=== PATIENT | female | born 1930 | race Caucasian/White ===

== ENCOUNTER → 2016-08-30 | Outpatient (CLI) | payer OTHER ==
[~2016-08-30] MED LIST: AMOX1TAB44 PO; ASPEC81; FLUO20CA35 PO; FLUT1INH INH; FLUT1INH5 INH; FRS/40 PO; GUAISYP4 PO; IPRASOL4 INH; MOME6000 NAE; NSNN50 NAE; NYSCR30 EXT; OMEP20TA PO; POLY335019 PO; POTA10TA PO; PRED10TA PO; PRLSR20 PO; RBTDACL PO; RST15 PO; UMEC1AER INH
--- NOTE | 2016-08-30 11:43 | DIAGNOSTIC IMAGING REPORT ---
CT SCAN OF THE BRAIN WITHOUT IV CONTRAST CLINICAL HISTORY: Headache. COMPARISON STUDY: CT of the brain dated 06/01/2007. TECHNIQUE: Unenhanced axial CT scan of the brain is performed from the vertex to the skull base. CT DOSE: 690.05 mGycm FINDINGS: Brain parenchyma: There are age-related involutional changes noting mild subcortical and periventricular microangiopathic change. There is no hemorrhage, mass effect, or evidence of acute territorial ischemia by CT criteria. Escobedo-white matter is preserved. No extra-axial fluid collection is seen. Ventricles, sulci, cisterns: Prominent secondary to involutional change. Intracranial vasculature: There is atherosclerotic calcification of the cavernous carotid arteries. Calvarium: Unremarkable. Sinuses and mastoids: The visualized paranasal sinuses are clear. The mastoid air cells are well pneumatized. Orbits: The bony orbits are grossly intact. There are bilateral ocular lens implants. IMPRESSION: There is no hemorrhage, mass effect, or evidence of acute territorial ischemia by CT criteria. Electronically signed by: Mayco Esparza M.D. 08/30/2016 11:42 AM Dictated Date/Time: 08/30/2016 11:37 AM
== END | disposition home or self-care (01) ==
LOC: C.CTS 11:14
PROVIDERS: ATTEND Family Medicine
DX: R51 Headache (principal)

== ENCOUNTER → 2016-09-27 | Outpatient (CLI) | payer OTHER ==
--- NOTE | 2016-09-27 08:53 | DIAGNOSTIC IMAGING REPORT ---
KUB CLINICAL HISTORY: Lower abdominal pain. COMPARISON STUDY: 12/03/2014 FINDINGS: There is scattered stool throughout the colon. There is no pathologic bowel dilatation. There are postsurgical changes present within the lower lumbar spine. There are multilevel degenerative changes present. There are several surgical clips present within the pelvis. No urinary tract calculi are visualized on conventional radiographic imaging. IMPRESSION: No evidence of pathologic bowel dilatation. Electronically signed by: Tulio Oreilly M.D. 09/27/2016 8:51 AM Dictated Date/Time: 09/27/2016 8:51 AM
== END | disposition home or self-care (01) ==
LOC: C.RAD 08:27
PROVIDERS: ATTEND Student in an Organized Health Care Education/Training Program
DX: R10.30 Lower abdominal pain, unspecified (principal)

== ENCOUNTER → 2016-10-18 | Outpatient (CLI) | payer OTHER ==
--- NOTE | 2016-10-18 10:26 | DIAGNOSTIC IMAGING REPORT ---
CHEST 2 VIEWS ROUTINE CLINICAL HISTORY: RIGHT RIB PAIN,COUGH COMPARISON STUDY: 09/11/2015 FINDINGS: The heart is normal in size. There is mild elevation/eventration right hemidiaphragm similar to the prior study. There are right infrahilar atelectatic changes. There is no focal pulmonary consolidation. There is no failure. There are no pleural effusions. There is no pneumothorax. No rib fractures are visualized.[ IMPRESSION: Stable elevation/eventration of the right hemidiaphragm. No acute findings. Electronically signed by: Tulio Oreilly M.D. 10/18/2016 10:24 AM Dictated Date/Time: 10/18/2016 10:24 AM
--- NOTE | 2016-10-18 10:30 | DIAGNOSTIC IMAGING REPORT ---
RIBS UNILATERAL MIN 2 VIEWS CLINICAL HISTORY: RIGHT RIB Pain, cough cough. Dyspnea. COMPARISON STUDY: None FINDINGS: Normal study. Negative PA chest. IMPRESSION: Normal study Electronically signed by: Gabriel Hodges M.D. 10/18/2016 10:28 AM Dictated Date/Time: 10/18/2016 10:26 AM
== END | disposition home or self-care (01) ==
LOC: C.RADBBURG 00:39
PROVIDERS: ATTEND Physician Assistant
DX: R05 Cough (principal)

== ENCOUNTER 2016-12-26 10:01 | Observation (INO) | payer OTHER ==
[~2016-12-26] VITALS: Ht 152.4 cm; Wt 71.4 kg
[~2016-12-26 10:01] MED LIST changes: -ASPEC81; -GUAISYP4 PO; -MOME6000 NAE; -OMEP20TA PO
[2016-12-26] MEDS ORDERED: SODIUM CHLORIDE 0.9% 500ML 500 ML IV STA (10:41)
[2016-12-26] MEDS ORDERED: ASPIRIN 81 MG CHEW PO STA (10:41)
--- NOTE | 2016-12-26 10:54 | DIAGNOSTIC IMAGING REPORT ---
CHEST ONE VIEW PORTABLE CLINICAL HISTORY: Chest Pain dyspnea COMPARISON STUDY: 10/18/2016 FINDINGS: Chronic elevation right hemidiaphragm. Lungs are clear. No evidence of cardiac enlargement. IMPRESSION: No acute process. Electronically signed by: Gabriel Hodges M.D. 12/26/2016 10:52 AM Dictated Date/Time: 12/26/2016 10:52 AM
[2016-12-26 11:02] LABS: BASO % 1.1 %; BASO ABS # 0.07 K/uL (0-0.2); COMPLETE YES; EOS % 3.5 %; HEMATOCRIT 41.8 % (37-47); IG% 0.2 %; LYMPH % 43.1 %; LYMPH ABS # 2.87 K/uL (1.2-3.4); MEAN CELL VOLUME 92.7 fL (80-100); MEAN CORPUSCULAR HEMOGLOBIN 30.8 pg (25-34); MEAN CORPUSCULAR HGB CONC 33.3 g/dl (32-36); MEAN PLATELET VOLUME 10.3 fL (7.4-10.4); NEUT % 43.1 %; PLATELET COUNT 228 K/uL (130-400); RED BLOOD COUNT 4.51 M/uL (4.2-5.4); WHITE BLOOD COUNT 6.66 K/uL (4.8-10.8)
[2016-12-26 11:18] LABS: BLOOD UREA NITROGEN 11 mg/dl (7-18); BUN/CREATININE RATIO 10.3 (10-20); CALCIUM 8.9 mg/dl (8.5-10.1); CARBON DIOXIDE 30 mmol/L (21-32); CHLORIDE 104 mmol/L (98-107); GLUCOSE 106 mg/dl (70-99); POTASSIUM 3.2 mmol/L (3.5-5.1); SODIUM 141 mmol/L (136-145)
[2016-12-26 11:23] LABS: CKMB/CK RATIO 0.7 (0-3.0)
[2016-12-26] MEDS ORDERED: OPTIRAY 320 IV PRN (11:45)
[2016-12-26] MEDS ORDERED: GUAISYP4 PO (11:45)
--- NOTE | 2016-12-26 11:47 | DIAGNOSTIC IMAGING REPORT ---
CT OF THE HEAD WITHOUT CONTRAST CLINICAL HISTORY: Left arm weakness. COMPARISON STUDY: Head CT August 30, 2016. CT DOSE: 638.56 mGycm TECHNIQUE: Helical axial images of the head were obtained without IV contrast. Automated exposure control was utilized for the study. FINDINGS: No acute intracranial hemorrhage, midline shift or mass effect is present. Ventricular system is stable. Basilar cisterns are patent. There are no extraaxial collections. There are no findings to suggest acute dural sinus thrombosis or acute territorial infarct. There are no significant calvarial abnormalities. Visualized portions of the sinuses and mastoid air cells are clear. IMPRESSION: No acute intracranial findings. Electronically signed by: Jem Lerma M.D. 12/26/2016 11:45 AM Dictated Date/Time: 12/26/2016 11:39 AM
[2016-12-26] MEDS ORDERED: MOME6000 NAE (11:49)
--- NOTE | 2016-12-26 12:04 | DIAGNOSTIC IMAGING REPORT ---
CHEST CTA for PULMONARY ARTERIES CT DOSE: 259.33 mGy.cm HISTORY: Chest pain. Dyspnea. TECHNIQUE: Multiaxial CT images of the chest were performed following the intravenous administration of contrast to evaluate the pulmonary arteries. Maximal intensity projection images were also obtained. COMPARISON STUDY: 09/01/2015 FINDINGS: There is a normal caliber thoracic aorta with no evidence for dissection. There is no evidence for pulmonary embolus. No pleural effusions. No pneumothorax. The liver and spleen are unremarkable. No mediastinal or hilar lymphadenopathy. The central airways are patent. The lungs are clear. Mild esophageal wall thickening. No focal infiltrate. Minimal bronchiectatic change right middle lobe. IMPRESSION: No evidence for pulmonary embolus. Lungs are considered generally clear. Moderate esophageal wall thickening with endoscopic evaluation suggested. Electronically signed by: Gabriel Hodges M.D. 12/26/2016 12:02 PM Dictated Date/Time: 12/26/2016 11:59 AM
[2016-12-26 13:30] LABS: ALKALINE PHOSPHATASE 141 U/L (45-117); ALT/SGPT 13 U/L (12-78); AST/SGOT 17 U/L (15-37)
[2016-12-26] MEDS ORDERED: MoRPHine SULFATE 2 MG/ML CARP IV PRN (14:15)
[2016-12-26] MEDS ORDERED: NITROGLYCERIN 0.4 MG SL PER TAB CHARGE SL PRN (14:15)
[2016-12-26] MEDS ORDERED: ACETAMINOPHEN 325 MG TAB PO PRN (14:15)
[2016-12-26] MEDS ORDERED: ONDANSETRON INJ 2 MG/ML 2 ML VIAL IV PRN (14:15)
[2016-12-26] MEDS ORDERED: ASPEC81 (14:22)
[2016-12-26] MEDS ORDERED: IV FLUIDS COMPLETED PRN (14:30)
[2016-12-26] MEDS: ATORVASTATIN 40 MG TAB PO SCH (14:30)
[2016-12-26] MEDS ORDERED: ALBUT/IPRATROP 3MG/0.5MG NEB 3 ML VIAL INH PRN (14:30)
[2016-12-26] MEDS ORDERED: FLUTICASONE PROPIONATE NA SPR 16 GM BTL NAE PRN (14:30)
--- NOTE | 2016-12-26 14:47 | History and Physical ---
History & Physical Date & Time of Service: Dec 26, 2016 at 14:27 Chief Complaint: Chest Pain And Arm Numbness Primary Care Physician: Maulik Seo PA-C History of Present Illness Source: patient, family, clinic records, hospital records 86 yo F with no history of heart disease presents to the ER after experiencing more intense chest pain today than usual. She states that this is the same pain that she has had for years, she was simply concerned because it was more intense and because she has some numbness and tingling in her LUE that has been present now for two weeks. She reports no identified triggers for her chest pain, stating it just happens. Later she reported some pain with exertion but reports that she does housework and gardening typically without any issues. She reports that it typically stays in her L breast area and doesn't move anywhere, is not associated with any symptoms except some worsening SOB which has also been chronic. She states that this pain has been present for many years, occurs almost every day and lasts about 10 minutes. Lying down helps it. She has been taking a baby aspirin since seeing Cardiology last year for a stress test for evaluation of this pain. This was negative. She also has some long-standing heartburn that she feels is well-controlled. In the ER she underwent a CTA to rule out PE, which was negative but did identify some thickening of the distal esophagus. The patient reports some chronic dysphagia to solids but there has been no progression. 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 She was sent to Dr. Mary for workup in preparation for hernia repair, however, after starting Reglan she became very sick and not only did her PCP take her off of this, she advised her to delay any further workup. This was last fall. Otherwise ROS is negative for fevers, chills, changes in sputum, wheezing or recent COPD flares. She also denies any nausea, vomiting, intolerance to PO, diarrhea, constipation or blood in her stool. There was no reported neck injury preceeding the arm numbness, it just occurred 2 weeks ago. Although she has feeling in her arm there is a pin prick that is present all down the L shoulder and arm. She has a h/o back surgery. She also reports some leg swelling, hand swelling recently and feels that her face was swollen yesterday. She currently denies any chest pain at this time. Past Medical/Surgical History Medical Problems: (1) Bakers cyst Permanent Comment: s/p removal Status: Chronic (2) Chronic Lower Extremity Edema Status: Chronic (3) COPD (chronic obstructive pulmonary disease) Status: Chronic (4) Depression Status: Chronic (5) Diverticulosis Status: Chronic (6) Dyslipidemia Status: Chronic Surgical Problems: (1) H/O exploratory laparotomy Status: Resolved (2) H/O sinus surgery Status: Resolved (3) H/O: hysterectomy Status: Resolved (4) S/P appendectomy Status: Resolved (5) S/P tonsillectomy and adenoidectomy Status: Resolved (6) Status post total right knee replacement Status: Resolved (1) History of back surgery Status: Resolved (2) History of hernia repair Status: Resolved Family History FHx: cancer FHx: lung cancer Social History Smoking Status: Former Smoker Smokeless Tobacco Use: No Alcohol Use: occasionally Drug Use: none Marital Status: Housing status: lives with significant other Occupational Status: unemployed, retired Immunizations History of Influenza Vaccine: Yes Influenza Vaccine Date: Mar 30, 2016 History of Tetanus Vaccine?: Yes Tetanus Immunization Date: November 26, 1982 History of Pneumococcal: Yes Pneumococcal Date: Mar 30, 2016 History of Hepatitis B Vaccine: No Multi-Drug Resistant Organisms History of MDRO: No Allergies Coded Allergies: Azithromycin (Verified Allergy, Mild, HIVES, 12/31/15) Sulfa Antibiotics (Verified Allergy, Mild, RASH, GI RXN-BACTRIM, 12/31/15) Quinolones (Verified Adverse Reaction, Mild, GI RXN, 12/31/15) Uncoded Allergies: STEROIDS (Adverse Reaction, Intermediate, RASH AND HIVES, 12/26/16) DOCTOR HAS TRIED LOW DOSES HOWEVER AND SHE SEEMS TO GET AWAY WITH THAT Home Medications Scheduled Fluoxetine (Prozac), 20 MG PO QAM Fluticasone Furoate (Inhalatio (Arnuity Ellipta), 200 MCG INH BID Fluticasone Furoate-Vilanterol (Breo Ellipta), 1 PUFF INH QAM Furosemide (Lasix), 1.5 TAB PO QAM Guaifenesin/Codeine (Robitussin-Ac Syrup), 5 ML PO HS Omeprazole (Prilosec), 2 TAB PO HS Polyethylene Glycol 3350 (Miralax), 17 GM PO QAM Potassium Chloride (K-Tabs), 2 TAB PO BID Prednisone Tab (Prednisone), 10 MG PO QAM Temazepam (Temazepam), 15 MG PO HS Umeclidinium-Vilanterol (Anoro Ellipta 62.5-25 Mcg/INH), 1 PUFF INH BID Scheduled PRN Ipratropium-Albuterol (Duoneb), 1 TREATMENT INH QID PRN for SOB/Wheezing Mometasone Furoate (Nasal) (Mometasone Furoate), 1 SPRAY AFIA DAILY PRN for SOB/ Wheezing Miscellaneous Medications Aspirin (Aspirin EC Low Dose) Review of Systems Constitutional: No fever, No chills, No weakness Eyes: No problem reported ENT: + trouble swallowing (chronic dysphagia, not progressed), No sore throat Respiratory: + cough (chronic daily cough), + shortness of breath, No sputum, No wheezing Cardiovascular: + chest pain, + problem reported (chronic leg swelling) Abdomen: No pain, No nausea, No vomiting, No diarrhea, No constipation, No GI bleeding Musculoskeletal: + joint pain (R leg and back bothering her more lately) Genitourinary - Female: No dysuria, No problem reported Neurologic: + numbness/tingling (LUE from shoulder to fingertips) Integumentary: No new/changing skin lesions Allergic / Immunologic: No problem reported Physical Exam Vital Signs Date Time Temp Pulse Resp B/P (MAP) Pulse Ox O2 Delivery O2 Flow Rate FiO2 12/26/16 14:00 85 16 125/81 98 Room Air 12/26/16 13:13 70 12/26/16 13:00 73 18 154/85 97 Room Air 12/26/16 11:56 72 16 147/66 99 Room Air 12/26/16 10:57 97 Room Air 12/26/16 10:57 73 20 136/69 97 Room Air 12/26/16 10:34 77 12/26/16 10:05 37.0 83 18 131/87 96 Room Air General Appearance: WD/WN, no apparent distress Head: normocephalic, atraumatic Eyes: normal inspection, PERRL, sclerae normal ENT: pharynx normal (MMM) Neck: supple, no adenopathy, trachea midline Respiratory/Chest: chest non-tender, lungs clear, normal breath sounds, no respiratory distress, no accessory muscle use Cardiovascular: regular rate, rhythm, no edema, no gallop, no JVD, no murmur, normal peripheral pulses Abdomen/GI: normal bowel sounds, non tender, soft, no organomegaly Back: normal inspection, + pertinent finding (restricted sidebending to the right, restricted rotation to the right, normal flexion extension) Extremities/Musculoskelatal: normal inspection, no pedal edema 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, alert, normal mood/affect, oriented x 3, + pertinent finding (decreased sensation on LUE>RUE) Skin: normal color, warm/dry Diagnostics Laboratory Results Results Past 24 Hours Test 12/26/16 10:25 Range/Units White Blood Count 6.66 4.8-10.8 K/uL Red Blood Count 4.51 4.2-5.4 M/uL Hemoglobin 13.9 12.0-16.0 g/dL Hematocrit 41.8 37-47 % Mean Corpuscular Volume 92.7 80-100 fL Mean Corpuscular Hemoglobin 30.8 25-34 pg Mean Corpuscular Hemoglobin Concent 33.3 32-36 g/dl Platelet Count 228 130-400 K/uL Mean Platelet Volume 10.3 7.4-10.4 fL Neutrophils (%) (Auto) 43.1 % Lymphocytes (%) (Auto) 43.1 % Monocytes (%) (Auto) 9.0 % Eosinophils (%) (Auto) 3.5 % Basophils (%) (Auto) 1.1 % Neutrophils # (Auto) 2.88 1.4-6.5 K/uL Lymphocytes # (Auto) 2.87 1.2-3.4 K/uL Monocytes # (Auto) 0.60 0.11-0.59 K/uL Eosinophils # (Auto) 0.23 0-0.5 K/uL Basophils # (Auto) 0.07 0-0.2 K/uL RDW Standard Deviation 44.1 36.4-46.3 fL RDW Coefficient of Variation 13.1 11.5-14.5 % Immature Granulocyte % (Auto) 0.2 % Immature Granulocyte # (Auto) 0.01 0.00-0.02 K/uL D-Dimer 580 0-500 ug/L FEU Sodium Level 141 136-145 mmol/L Potassium Level 3.2 3.5-5.1 mmol/L Chloride Level 104 98-107 mmol/L Carbon Dioxide Level 30 21-32 mmol/L Anion Gap 7.0 3-11 mmol/L Blood Urea Nitrogen 11 7-18 mg/dl Creatinine 1.10 0.60-1.20 mg/dl Est Creatinine Clear Calc Drug Dose 33.9 ml/min Estimated GFR () 53.4 Estimated GFR (Non- 46.1 BUN/Creatinine Ratio 10.3 10-20 Random Glucose 106 70-99 mg/dl Calcium Level 8.9 8.5-10.1 mg/dl Total Bilirubin 0.3 0.2-1 mg/dl Direct Bilirubin < 0.1 0-0.2 mg/dl Aspartate Amino Transf (AST/SGOT) 17 15-37 U/L Alanine Aminotransferase (ALT/SGPT) 13 12-78 U/L Alkaline Phosphatase 141 45-117 U/L Total Creatine Kinase 72 26-192 U/L Creatine Kinase MB 0.5 0.5-3.6 ng/ml Creatine Kinase MB Ratio 0.7 0-3.0 Troponin I < 0.015 0-0.045 ng/ml Total Protein 6.9 6.4-8.2 gm/dl Albumin 3.9 3.4-5.0 gm/dl Lipase 91 73-393 U/L Diagnostic Radiology CHEST CTA for PULMONARY ARTERIES CT DOSE: 259.33 mGy.cm HISTORY: Chest pain. Dyspnea. TECHNIQUE: Multiaxial CT images of the chest were performed following the intravenous administration of contrast to evaluate the pulmonary arteries. Maximal intensity projection images were also obtained. COMPARISON STUDY: 09/01/2015 FINDINGS: There is a normal caliber thoracic aorta with no evidence for dissection. There is no evidence for pulmonary embolus. No pleural effusions. No pneumothorax. The liver and spleen are unremarkable. No mediastinal or hilar lymphadenopathy. The central airways are patent. The lungs are clear. Mild esophageal wall thickening. No focal infiltrate. Minimal bronchiectatic change right middle lobe. IMPRESSION: No evidence for pulmonary embolus. Lungs are considered generally clear. Moderate esophageal wall thickening with endoscopic evaluation suggested. CT OF THE HEAD WITHOUT CONTRAST CLINICAL HISTORY: Left arm weakness. COMPARISON STUDY: Head CT August 30, 2016. CT DOSE: 638.56 mGycm TECHNIQUE: Helical axial images of the head were obtained without IV contrast. Automated exposure control was utilized for the study. FINDINGS: No acute intracranial hemorrhage, midline shift or mass effect is present. Ventricular system is stable. Basilar cisterns are patent. There are no extraaxial collections. There are no findings to suggest acute dural sinus thrombosis or acute territorial infarct. There are no significant calvarial abnormalities. Visualized portions of the sinuses and mastoid air cells are clear. IMPRESSION: No acute intracranial findings. CHEST ONE VIEW PORTABLE CLINICAL HISTORY: Chest Pain dyspnea COMPARISON STUDY: 10/18/2016 FINDINGS: Chronic elevation right hemidiaphragm. Lungs are clear. No evidence of cardiac enlargement. IMPRESSION: No acute process. EKG SR 78, no ST changes. Impression Assessment and Plan 86 yo F with h/o smoking but no active smoking who presents with chronic chest pain with slight increase in intensity this morning. 1. Chest pain-not concerning for ACS with normal EKG, chronic history and stable description of pain and negative workup last year. However, with her concern and increased intensity will rule her out with serial cardiac enzymes overnight and consult Cards to evaluate further. Full dose ASA given in ER and gave her Lipitor 80mg. She has minimal risk factors aside from her age. She also has multiple issues that can be causing the pain other than cardiac, for example, heartburn and a known hiatal hernia for which she was considering surgical repair last year with EGD revealing a tortuous aorta along with some chronic dysphagia issues. Will also consult GI with findings of distal esophageal thickening on CT scan today. Morphine PRN, Nitro PRN, monitor on tele overnight 2. COPD-stable, no active wheezing. Cont inhalers and duonebs prn. Cont daily steroids (which may also be contributing to stomach issues) 3. GERD-cont PPI 4. Chronic LE edema-no edema on exam today and no swelling noted anywhere else. Will cont her home dose of Lasix and potassium 5. Depression-appears stable, cont prozac 6. LUE numbness-uncertain cause but with distribution, I would be concerned about neck pathology--ordered c-spine xray. Also, she is restricted in sidebending and rotation to the right. May benefit from a chiropractic adjustment as an outpatient Lovenox 40 Full Code Dispo-to telemetry on observation overnight Lucina Andujar DO [facility] Level [facility] Care Telemetry Resuscitation Status FULL RESUSCITATION VTE Prophylaxis VTE Risk Assessment Done? Y/N: Yes Risk Level: Moderate Given or contraindicated: Enoxaparin (Lovenox)SQ
[2016-12-26 14:48] VITALS: BP 126/63; PULSE 68; TEMP 37.1; O2SAT 98; Ht 152.4 cm; Wt 71.4 kg
--- NOTE | 2016-12-26 15:16 | DIAGNOSTIC IMAGING REPORT ---
CERVICAL SPINE 8 VIEWS HISTORY: patient with total arm numbness down LUE x 2 weeks COMPARISON: None. FINDINGS: Considerable degenerative change throughout the entire cervical region. This includes degenerative change of the C1-C2 articulation. There is no fracture. No evidence for positional subluxation moderate narrowing at osteophytic bases of the bulk of the neuroforamina. Prevertebral soft tissues and the atlantodens interval are intact. IMPRESSION: No evidence for positional subluxation. Considerable degenerative change throughout the entire cervical region. Electronically signed by: Gabriel Hodges M.D. 12/26/2016 3:15 PM Dictated Date/Time: 12/26/2016 3:12 PM
[2016-12-26 15:25] VITALS: BP 108/64; PULSE 87; O2SAT 96
[2016-12-26 15:32] VITALS: TEMP 37.3
--- NOTE | 2016-12-26 15:36 | Gastrointestinal Consultation ---
Gastrointestinal Consultation Date of Consultation: Dec 26, 2016 Attending Physician: Con Consulting Physician: Miquel Reason for Consultation: distal esophageal thickening, dysphagia History of Present Illness Patient is a 86 year old female w/ PMH significant for depression, HTN, CKD-3, COPD and others listed below who presented through the ED for evaluation of chest pain. EKG WNL, troponin negative, chest XR and CTA without any acute cardio-pulmonary findings. She is scheduled for a echo tomorrow AM. GI was consulted for evaluation of distal esophageal thickening. Pt was seen and evaluated this AM. She tells me she did not follow up after her last endoscopy with surgery for evaluation of HH. She has daily upper GI symptoms. Reports epigastric burning, burping, belching, nausea, regurgitation. She is unsure of what stomach medication she takes as an outpatient. She denies any episodes of hematemesis, coffee ground emesis, rectal bleeding or melena. Her current chest pain is aggravated by movement and does not have any correlation to PO intake. Moves her bowels once daily, uses laxatives PRN with constipation. Chest CTA 12/26/16: There is a normal caliber thoracic aorta with no evidence for dissection. There is no evidence for pulmonary embolus. No pleural effusions. No pneumothorax. The liver and spleen are unremarkable. No mediastinal or hilar lymphadenopathy. The central airways are patent. The lungs are clear. Mild esophageal wall thickening. No focal infiltrate. Minimal bronchiectatic change right middle lobe. EGD 01/05/16: Tortuous esophagus. Hiatus hernia. Normal examined duodenum. No specimens collected Colonoscopy 09/23/15: Melanosis in the colon. Four 2 to 5 mm polyps in the entire colon. Resected and retrieved. Sigmoid diverticulosis. Stool in the entire examined colon. The distal rectum and anal verge are normal on retroflexion view. Past Medical/Surgical History chest pain, dysphagia Past Medical History: HTN, GASPAR, COPD, CKD-3, dyslipidemia, neuroma of left hand, mitral valve regurgitation, deviated nasal septum, depression Past Surgical History: EGD, Colonoscopy, ex-laparotomy, appendectomy, tonsillectomy, adenoidectomy, sinus surgery, right total knee replacement, back surgery, HH repair, hysterectomy Family History FHx: cancer FHx: lung cancer Social History Smoking Status: Former Smoker Alcohol Use: none Drug Use: none Marital Status: Housing Status: lives with significant other Occupation Status: unemployed, retired Allergies Coded Allergies: Azithromycin (Verified Allergy, Mild, HIVES, 12/31/15) Sulfa Antibiotics (Verified Allergy, Mild, RASH, GI RXN-BACTRIM, 12/31/15) Quinolones (Verified Adverse Reaction, Mild, GI RXN, 12/31/15) Uncoded Allergies: STEROIDS (Adverse Reaction, Intermediate, RASH AND HIVES, 12/26/16) DOCTOR HAS TRIED LOW DOSES HOWEVER AND SHE SEEMS TO GET AWAY WITH THAT Current Medications Home Meds and Scripts Medications Dose Route/Sig Max Daily Dose Days Date Category Aspirin EC Low Dose (Aspirin) 81 Mg Ectab 12/26/16 Reported Mometasone Furoate (Mometasone Furoate (Nasal)) 50 Mcg/Act Spr 1 [place] AFIA DAILY PRN 12/26/16 Reported Robitussin-Ac Syrup (Codeine Phosphate/Guaifenesin) Syrp 5 Ml PO HS 12/26/16 Reported Prozac (Fluoxetine HCl) 20 Mg Cap 20 Mg PO QAM 09/16/15 Reported Lasix (Furosemide) 40 Mg Tab 1.5 Tab PO QAM 09/16/15 Reported Miralax (Polyethylene Glycol 3350) 1 Pow Pow 17 Gm PO QAM 09/16/15 Reported K-Tabs (Potassium Chloride) 10 Meq Tab 2 Tab PO BID 09/16/15 Reported Prednisone 10 Mg Tab 10 Mg PO QAM 09/16/15 Reported Breo Ellipta (Fluticasone Furoate-Vilanterol) 1 Inh Inh 1 Puff INH QAM 09/16/15 Reported Duoneb (Ipratropium-Albuterol) 3 Ml Nebu 1 Treatment INH QID PRN 09/16/15 Reported Arnuity Ellipta (Fluticasone Furoate (Inhalatio) 200 Mcg/Act Inh 200 Mcg INH BID 09/11/15 Reported Anoro Ellipta 62.5-25 Mcg/INH (Umeclidinium-Vilanterol) 1 Aer Aer 1 Puff INH BID 09/11/15 Reported Temazepam 15 Mg Cap 15 Mg PO HS 01/06/15 Reported Prilosec (Omeprazole) 20 Mg Capcr 2 Tab PO HS 05/06/08 Reported Review of Systems Constitutional: No fever, No chills Respiratory: + shortness of breath (unchanged from baseline), No cough Cardiac: + chest pain, No edema Abdomen: + dysphagia, No pain, No nausea, No vomiting, No diarrhea, No constipation, No GI bleeding Physical Exam Date Time Temp Pulse Resp B/P (MAP) Pulse Ox O2 Delivery O2 Flow Rate FiO2 12/26/16 15:25 87 16 108/64 (79) 96 Room Air 12/26/16 14:48 37.1 68 18 126/63 98 Room Air 12/26/16 14:00 85 16 125/81 98 Room Air 12/26/16 13:13 70 12/26/16 13:00 73 18 154/85 97 Room Air 12/26/16 11:56 72 16 147/66 99 Room Air 12/26/16 10:57 97 Room Air 12/26/16 10:57 73 20 136/69 97 Room Air 12/26/16 10:34 77 12/26/16 10:05 37.0 83 18 131/87 96 Room Air General Appearance: no apparent distress Eyes: PERRL Neck: supple Respiratory/Chest: lungs clear, normal breath sounds Cardiovascular: regular rate, rhythm, no murmur Abdomen: normal bowel sounds, non tender, soft, no organomegaly, no pulsatile mass Neurologic/Psych: alert, normal mood/affect, oriented x 3 Skin: normal color, warm/dry, no rash Laboratory Results Last 24 Hours Test 12/26/16 10:25 White Blood Count 6.66 K/uL Red Blood Count 4.51 M/uL Hemoglobin 13.9 g/dL Hematocrit 41.8 % Mean Corpuscular Volume 92.7 fL Mean Corpuscular Hemoglobin 30.8 pg Mean Corpuscular Hemoglobin Concent 33.3 g/dl Platelet Count 228 K/uL Mean Platelet Volume 10.3 fL Neutrophils (%) (Auto) 43.1 % Lymphocytes (%) (Auto) 43.1 % Monocytes (%) (Auto) 9.0 % Eosinophils (%) (Auto) 3.5 % Basophils (%) (Auto) 1.1 % Neutrophils # (Auto) 2.88 K/uL Lymphocytes # (Auto) 2.87 K/uL Monocytes # (Auto) 0.60 K/uL Eosinophils # (Auto) 0.23 K/uL Basophils # (Auto) 0.07 K/uL RDW Standard Deviation 44.1 fL RDW Coefficient of Variation 13.1 % Immature Granulocyte % (Auto) 0.2 % Immature Granulocyte # (Auto) 0.01 K/uL D-Dimer 580 ug/L FEU Sodium Level 141 mmol/L Potassium Level 3.2 mmol/L Chloride Level 104 mmol/L Carbon Dioxide Level 30 mmol/L Anion Gap 7.0 mmol/L Blood Urea Nitrogen 11 mg/dl Creatinine 1.10 mg/dl Est Creatinine Clear Calc Drug Dose 33.9 ml/min Estimated GFR () 53.4 Estimated GFR (Non- 46.1 BUN/Creatinine Ratio 10.3 Random Glucose 106 mg/dl Calcium Level 8.9 mg/dl Total Bilirubin 0.3 mg/dl Direct Bilirubin < 0.1 mg/dl Aspartate Amino Transf (AST/SGOT) 17 U/L Alanine Aminotransferase (ALT/SGPT) 13 U/L Alkaline Phosphatase 141 U/L Total Creatine Kinase 72 U/L Creatine Kinase MB 0.5 ng/ml Creatine Kinase MB Ratio 0.7 Troponin I < 0.015 ng/ml Total Protein 6.9 gm/dl Albumin 3.9 gm/dl Lipase 91 U/L Impression Patient is a 86 year old female admitted for chest pain with normal EKG, normal CXR, normal CTA and negative troponins. Per staffing branch manager she is to get an echo tomorrow AM. GI is consulted for dysphagia and lower esophageal wall thickening - suggest endoscopic evaluation. Plan GI is ok for diet as tolerated 12/26/16 Aspiration precautions given complaint of dysphagia and history of aspiration episodes per patient NPO after midnight EGD 12/27/16 with cardiac clearance PPI BID GI will follow. Please call with questions or concerns. ATTESTATION: I have performed a history and physical examination of this patient and reviewed the electronic record. Specifically, on physical examination there is no abdominal tenderness. I have discussed the case with VANDANA Verduzco. The above note reflects my findings, conclusions, and recommendations. Chidi Lafleur MD
[2016-12-26 15:45] LABS: PROTHROMBIN TIME (PATIENT) 10.4 SECONDS (9.0-12.0)
[2016-12-26] MEDS: BREO ELLIPTA - ORDER AWAITING ACTION SCH (15:58)
--- NOTE | 2016-12-26 17:22 | EMERGENCY ROOM VISIT NOTE ---
History Report prepared by Dung: Celia Loera Under the Supervision of: Dr. Jatin Nina D.O. First contact with patient: 10:23 Chief Complaint: CHEST PAIN Stated Complaint: CHEST PAIN AND ARM NUMBNESS History of Present Illness The patient is an 86 year old female who presents to the Emergency Room with complaints of intermittent left-sided chest pain that started 2 weeks ago. The patient's most recent episode of chest pain was this morning while she was lying in bed. She states that the pain lasted 5-10 minutes. The chest pain is worse with exertion. She describes the chest pain as sharp and states that when the chest pain starts her baseline shortness of breath worsens. The patient states that she has COPD so she experiences shortness of breath and left-sided chest soreness constantly at baseline. The patient is also experiencing constant left arm numbness and left arm pain that started 2 weeks ago. The numbness radiates from her shoulder all the way to her fingertips. She states that her left arm is also intermittently edematous. The patient adds that her left arm is weaker than her right. She states that the left arm weakness started 6 months ago. She has been unable to unscrew jar lids and things occasionally fall out of her hand when she is holding them. The left arm numbness does not seem to be associated with the chest pain because it is there even when the chest pain is not. The patient denies changes in vision and any other weakness beside her left arm. The patient denies any personal history of strokes, heart disease, hypertension, or hyperlipidemia. She states that she has a family history of heart disease. The patient is a former smoker but states that she quit 11 years ago. The patient takes one baby aspirin daily, but denies being on any other blood thinners. Source of History: patient Onset: 2 weeks ago Position: chest (left) Quality: sharp Timing: intermittent Modifying Factors (Worsening): exertion Associated Symptoms: + weakness (left arm), + numbness (left arm) Note: left arm pain, intermittent left arm edema, no changes in vision, no other weakness beside left arm Review of Systems See HPI for pertinent positives & negatives. A total of 10 systems reviewed and were otherwise negative. Past Medical & Surgical Medical Problems: (1) Bakers cyst (2) Chronic Lower Extremity Edema (3) COPD (chronic obstructive pulmonary disease) (4) Depression (5) Diverticulosis (6) Dyslipidemia (7) HTN (hypertension) Surgical Problems: (1) H/O exploratory laparotomy (2) H/O sinus surgery (3) H/O: hysterectomy (4) S/P appendectomy (5) S/P tonsillectomy and adenoidectomy (6) Status post total right knee replacement Social History Problems: (1) History of back surgery (2) History of hernia repair (3) History of hysterectomy (4) History of knee replacement, total Family History FHx: cancer FHx: lung cancer Social History Smoking Status: Former Smoker Alcohol Use: none Marital Status: Housing Status: lives with significant other Occupation Status: retired Current/Historical Medications Scheduled Fluoxetine (Prozac), 20 MG PO QAM Fluticasone Furoate (Inhalatio (Arnuity Ellipta), 200 MCG INH BID Fluticasone Furoate-Vilanterol (Breo Ellipta), 1 PUFF INH QAM Furosemide (Lasix), 1.5 TAB PO QAM Guaifenesin/Codeine (Robitussin-Ac Syrup), 5 ML PO HS Omeprazole (Prilosec), 2 TAB PO HS Polyethylene Glycol 3350 (Miralax), 17 GM PO QAM Potassium Chloride (K-Tabs), 2 TAB PO BID Prednisone Tab (Prednisone), 10 MG PO QAM Temazepam (Temazepam), 15 MG PO HS Umeclidinium-Vilanterol (Anoro Ellipta 62.5-25 Mcg/INH), 1 PUFF INH BID Scheduled PRN Ipratropium-Albuterol (Duoneb), 1 TREATMENT INH QID PRN for SOB/Wheezing Mometasone Furoate (Nasal) (Mometasone Furoate), 1 SPRAY AFIA DAILY PRN for SOB/ Wheezing Miscellaneous Medications Aspirin (Aspirin EC Low Dose) Allergies Coded Allergies: Azithromycin (Verified Allergy, Mild, HIVES, 12/31/15) Sulfa Antibiotics (Verified Allergy, Mild, RASH, GI RXN-BACTRIM, 12/31/15) Quinolones (Verified Adverse Reaction, Mild, GI RXN, 12/31/15) Uncoded Allergies: STEROIDS (Adverse Reaction, Intermediate, RASH AND HIVES, 12/26/16) DOCTOR HAS TRIED LOW DOSES HOWEVER AND SHE SEEMS TO GET AWAY WITH THAT Physical Exam Vital Signs Date Time Temp Pulse Resp B/P (MAP) Pulse Ox O2 Delivery O2 Flow Rate FiO2 12/26/16 14:00 85 16 125/81 98 Room Air 12/26/16 13:13 70 12/26/16 13:00 73 18 154/85 97 Room Air 12/26/16 11:56 72 16 147/66 99 Room Air 12/26/16 10:57 97 Room Air 12/26/16 10:57 73 20 136/69 97 Room Air 12/26/16 10:34 77 12/26/16 10:05 37.0 83 18 131/87 96 Room Air Physical Exam GENERAL: alert, sitting up in bed, well appearing, well nourished, no distress, non-toxic EYE EXAM: normal conjunctiva, PERRL and EOM's intact OROPHARYNX: no exudate, no erythema, lips, buccal mucosa, and tongue normal and mucous membranes are moist NECK: supple, no nuchal rigidity, no adenopathy, non-tender LUNGS: Clear to auscultation. Normal chest wall mechanics HEART: no murmurs, S1 normal and S2 normal ABDOMEN: abdomen soft, non-tender, normo-active bowel sounds, no masses, no rebound or guarding. BACK: Back is symmetrical on inspection and there is no deformity, no midline tenderness, no CVA tenderness. SKIN: no rashes and no bruising UPPER EXTREMITIES: upper extremities are grossly normal, radial pulses equal bilaterally LOWER EXTREMITIES: No pitting edema. NEURO EXAM: Normal sensorium, cranial nerves II-XII intact, normal speech, left upper extremity slightly weaker than right with grasp, no weakness of legs. No drift. Finger to nose intact. Gross sensation intact. Medical Decision & Procedures ER Provider Diagnostic Interpretation: Radiology results as stated below per my review and the radiologist's interpretation: CHEST ONE VIEW PORTABLE FINDINGS: Chronic elevation right hemidiaphragm. Lungs are clear. No evidence of cardiac enlargement. IMPRESSION: No acute process. Electronically signed by: Gabriel Hodges M.D. 12/26/2016 10:52 AM Dictated Date/Time: 12/26/2016 10:[address] OF THE HEAD WITHOUT CONTRAST FINDINGS: No acute intracranial hemorrhage, midline shift or mass effect is present. Ventricular system is stable. Basilar cisterns are patent. There are no extraaxial collections. There are no findings to suggest acute dural sinus thrombosis or acute territorial infarct. There are no significant calvarial abnormalities. Visualized portions of the sinuses and mastoid air cells are clear. IMPRESSION: No acute intracranial findings. Electronically signed by: Jem Lerma M.D. 12/26/2016 11:45 AM Dictated Date/Time: 12/26/2016 11:39 AM CHEST CTA for PULMONARY ARTERIES FINDINGS: There is a normal caliber thoracic aorta with no evidence for dissection. There is no evidence for pulmonary embolus. No pleural effusions. No pneumothorax. The liver and spleen are unremarkable. No mediastinal or hilar lymphadenopathy. The central airways are patent. The lungs are clear. Mild esophageal wall thickening. No focal infiltrate. Minimal bronchiectatic change right middle lobe. IMPRESSION: No evidence for pulmonary embolus. Lungs are considered generally clear. Moderate esophageal wall thickening with endoscopic evaluation suggested. Electronically signed by: Gabriel Hodges M.D. 12/26/2016 12:02 PM Dictated Date/Time: 12/26/2016 11:59 AM Laboratory Results 12/26/16 10:25 Red Blood Count 4.51, Mean Corpuscular Volume 92.7, Mean Corpuscular Hemoglobin 30.8, Mean Corpuscular Hemoglobin Concent 33.3, Mean Platelet Volume 10.3, Neutrophils (%) (Auto) 43.1, Lymphocytes (%) (Auto) 43.1, Monocytes (%) (Auto) 9.0, Eosinophils (%) (Auto) 3.5, Basophils (%) (Auto) 1.1, Neutrophils # (Auto) 2.88, Lymphocytes # (Auto) 2.87, Monocytes # (Auto) 0.60, Eosinophils # (Auto) 0.23, Basophils # (Auto) 0.07 12/26/16 10:25 Test 12/26/16 10:25 White Blood Count 6.66 K/uL (4.8-10.8) Red Blood Count 4.51 M/uL (4.2-5.4) Hemoglobin 13.9 g/dL (12.0-16.0) Hematocrit 41.8 % (37-47) Mean Corpuscular Volume 92.7 fL (80-100) Mean Corpuscular Hemoglobin 30.8 pg (25-34) Mean Corpuscular Hemoglobin Concent 33.3 g/dl (32-36) Platelet Count 228 K/uL (130-400) Mean Platelet Volume 10.3 fL (7.4-10.4) Neutrophils (%) (Auto) 43.1 % Lymphocytes (%) (Auto) 43.1 % Monocytes (%) (Auto) 9.0 % Eosinophils (%) (Auto) 3.5 % Basophils (%) (Auto) 1.1 % Neutrophils # (Auto) 2.88 K/uL (1.4-6.5) Lymphocytes # (Auto) 2.87 K/uL (1.2-3.4) Monocytes # (Auto) 0.60 K/uL (0.11-0.59) Eosinophils # (Auto) 0.23 K/uL (0-0.5) Basophils # (Auto) 0.07 K/uL (0-0.2) RDW Standard Deviation 44.1 fL (36.4-46.3) RDW Coefficient of Variation 13.1 % (11.5-14.5) Immature Granulocyte % (Auto) 0.2 % Immature Granulocyte # (Auto) 0.01 K/uL (0.00-0.02) Prothrombin Time 10.4 SECONDS (9.0-12.0) Prothromb Time International Ratio 1.0 (0.9-1.1) Activated Partial Thromboplast Time 27.1 SECONDS (21.0-31.0) Partial Thromboplastin Ratio 1.0 D-Dimer 580 ug/L FEU (0-500) Anion Gap 7.0 mmol/L (3-11) Est Creatinine Clear Calc Drug Dose 33.9 ml/min Estimated GFR () 53.4 Estimated GFR (Non- 46.1 BUN/Creatinine Ratio 10.3 (10-20) Calcium Level 8.9 mg/dl (8.5-10.1) Total Bilirubin 0.3 mg/dl (0.2-1) Direct Bilirubin < 0.1 mg/dl (0-0.2) Aspartate Amino Transf (AST/SGOT) 17 U/L (15-37) Alanine Aminotransferase (ALT/SGPT) 13 U/L (12-78) Alkaline Phosphatase 141 U/L (45-117) Total Protein 6.9 gm/dl (6.4-8.2) Albumin 3.9 gm/dl (3.4-5.0) Lipase 91 U/L (73-393) Laboratory results per my review. Medications Administered Medications (Trade) Dose Ordered Sig/Sotero Route Start Time Stop Time Status Last Admin Dose Admin Sodium Chloride 500 ml @ 999 mls/hr Q31M STAT IV 12/26/16 10:41 12/26/16 11:11 DC 12/26/16 10:55 999 MLS/HR Aspirin (Aspirin Chew) 324 mg NOW STAT PO 12/26/16 10:41 12/26/16 10:42 DC 12/26/16 10:53 324 MG ECG Indication: chest pain Rate (beats per minute): 78 Rhythm: sinus rhythm Findings: T-wave inversion (Septal), left axis deviation ED Course ED COURSE: Vital signs were reviewed and showed hypertension. The patients medical record was reviewed The above diagnostic studies were performed and reviewed. ED treatments and interventions as stated above. 1030: The patient was evaluated in room C12. A complete history and physical examination was performed. 1041: Ordered Aspirin 324 mg PO, Sodium Chloride 500 ml @ 999 mls/hr IV 1138: I reassessed the patient and updated her about her positive d-dimer. She is going over to CT now. 1257: Upon reevaluation, the patient is resting comfortably. I discussed my findings with the patient and she understands and agrees with the treatment plan. Based on the patients age, coexisting illnesses, exam and lab findings the decision to treat as an inpatient was made. The patient remained stable while under my care. The patient will be evaluated for further management. 1316: I reviewed the patient's case with Sheila Sommers. She will evaluate the patient for further management. Medical Decision Differential diagnoses includes but is not limited to acute coronary syndrome, myocardial infarction, pericarditis, pulmonary embolus, aortic dissection, pneumonia, pneumothorax, musculoskeletal, shingles, esophageal. Medication Reconciliation: I attest that I have personally reviewed the patient' s current medication list. Blood pressure screening: Patient was found to have an elevated blood pressure but she is being evaluated for further management so she was not referred to her primary doctor for recheck and further treatment. Patient is an 86-year-old female who presents the ER for chest pain which she notes is fairly exertional associated with shortness of breath. This is different than her chronic chest pain which she has of her left chest wall. She has difficulty explaining the difference between the two. She does have slight weakness in her left upper extremity with grasp. CBC along with BMP, LFTs and bilirubin. Troponin was negative. EKG was nondiagnostic. Chest x- ray unremarkable. CT head was negative. CT of the chest shows no PEs. No dissection. Patient was pain-free admitted to internal medicine for chest pain rule out associated with slight weakness in the grasp of her left upper extremity. Consults Time Called: [phone] Consulting Physician: Sheila Sommers Returned Call: [phone] I reviewed the patient's case with Sheila Sommers. She will evaluate the patient for further management. Impression Primary Impression: Precordial chest pain Additional Impression: Left arm weakness Scribe Attestation The scribe's documentation has been prepared under my direction and personally reviewed by me in its entirety. I confirm that the note above accurately reflects all work, treatment, procedures, and medical decision making performed by me. Departure Information Dispostion Being Evaluated By Hospitalist Referrals Elvira Melgar D.O. (PCP) Patient Instructions [facility] Problem Qualifiers
[2016-12-26 17:30] LABS: CKMB/CK RATIO 0.7 (0-3.0)
[2016-12-26] MEDS ORDERED: ENOXAPARIN 40 MG/0.4 ML SYR SC SCH (18:00)
[2016-12-26 19:07] VITALS: BP 125/62; PULSE 76; TEMP 37; O2SAT 94
--- NOTE | 2016-12-26 19:32 | CARDIOLOGY CONSULTATION ---
DATE OF CONSULTATION: 12/26/2016 CONSULTATION REQUESTED BY: Dr. Andujar. REASON FOR CONSULTATION: Chest pain and arm numbness. HISTORY OF PRESENT ILLNESS: Ms. Alvarado is an 86-year-old woman who presented to [facility] with a complaint of chest pain and left arm numbness. She states her chest pain is a chronic issue and been going on for over 2 years. She describes it as a sharp, stabbing sensation and states it is pleuritic in nature and occurs when she takes a deep breath. She states that she feels it around her left breast area and does not move anywhere. It is not associated with exertion or any shortness of breath, palpitations, diaphoresis, nausea, lightheadedness, dizziness, or syncope and again has been stable for over 2 years. However, for the last 2 weeks, she states that she has also been getting some left arm numbness, anytime she would lift her arm above her shoulder. She states it normally occurs when she is lying on the couch with her arm propped up and her body weight on her left arm. This has been stable for the last 2 weeks, she thought it would go away; however, today after it did not go away, she came in to the Emergency Department for further evaluation. Upon further questioning, she admits that she does have chronic neck problems and believes that she has been told she has had a pinched nerve in the past. PAST SURGICAL HISTORY: 1. Total abdominal hysterectomy. 2. Tonsillectomy. 3. Damico cyst removal. 4. Appendectomy. 5. Exploratory laparotomy. 6. Sinus surgery. 7. Upper endoscopy. 8. Colonoscopy. 9. Knee surgery. MEDICAL ILLNESSES: 1. Ongoing hiatal hernia, patient declining intervention. 2. COPD. 3. Questionable cor pulmonale. 4. Hypertension. 5. Depression. 6. Stage III chronic kidney disease. 7. Mitral regurgitation. 8. History of tobacco abuse. 9. Dyslipidemia. FAMILY HISTORY: Noncontributory. SOCIAL HISTORY: The patient is a former smoker, smoked for over 40 years, quit in 2005. Denies alcohol or recreational drug use. She is . She lives at home with her . REVIEW OF SYSTEMS: As per HPI, all other review of systems reviewed and negative at this time. ALLERGIES: 1. AMBIEN. 2. PREDNISONE. 3. REGLAN. 4. SULFA. 5. ZITHROMAX. 6. QUINOLONES. MEDICATIONS AN OUTPATIENT: 1. Aspirin 81 mg daily. 2. Lasix p.r.n. 3. DuoNeb as needed. 4. Fluoxetine daily. 5. Prilosec daily. 6. Spiriva daily. PHYSICAL EXAMINATION: VITALS: Temperature 37.1, pulse 68, respiratory rate 12, blood pressure 126/63. GENERAL: Awake, alert, oriented x3 in no acute distress. HEENT: Normocephalic, atraumatic. Pupils equal, round, and reactive to light and accommodation. Extraocular muscles intact. Anicteric sclerae. Moist mucous membranes. NECK: No JVD, no bruit. CARDIOVASCULAR: Regular. Positive S4. Normal S1 and S2. No S3. No murmurs or rubs. PULMONARY: Clear to auscultation bilaterally. No rales, rhonchi, or wheezing. ABDOMEN: Bowel sounds x4, soft. No rebound, guarding, tenderness. No organomegaly. EXTREMITIES: No clubbing, cyanosis or edema. +2 pedal pulses bilaterally. SKIN: Warm and dry. DATA: Cervical C-spine series shows no evidence of positional subluxation, considerable degenerative change throughout the entire cervical spine. A 12-lead EKG performed in the Emergency Department independently reviewed at this time shows normal sinus rhythm at 78 beats per minute, left axis deviation, possible old inferior infarct, no significant change compared to previous study of 2016. LABORATORY STUDIES OF SIGNIFICANCE: CPK of 72. Troponin I negative. IMPRESSION: 1. Musculoskeletal chest pain. 2. Left arm numbness likely secondary to cervical. 3. Radiculopathy. 4. Hiatal hernia. 5. History of tobacco abuse. RECOMMENDATIONS: Ms. Alvarado was counseled that given the fact that her chest pain is pleuritic in nature along with the fact that it has not changed in over several years and along with the fact that she a stress test for similar pain in May 2016, I do not believe it is cardiac in nature. Also, given the fact that her left arm numbness is not associated with the pain and positional in nature I believe is most likely radicular in nature. For completeness sake, a 2-D echocardiogram will be performed to evaluate for any wall motion abnormalities; however, should it come back unremarkable, no further cardiac testing or intervention will be necessary.
[2016-12-26] MEDS: POTASSIUM CHLORIDE 20 MEQ TABCR PO SCH (20:07)
[2016-12-26] MEDS ORDERED: GUAIFENESIN/CODEINE 100MG/10MG 5ML UDC PO SCH (21:00)
[2016-12-26] MEDS ORDERED: PANTOprazole SOD 40 MG TAB PO SCH (21:00)
[2016-12-26] MEDS ORDERED: TEMAZEPAM 15 MG CAP PO SCH (21:00)
[2016-12-26 22:58] LABS: CKMB/CK RATIO 0.9 (0-3.0)
[2016-12-27] VITALS (8 sets, daily range): BP systolic 100–147; BP diastolic 39–102; PULSE 67–85; TEMP 36.7–37.2; O2SAT 95–97
[2016-12-27 06:00] LABS: HEMATOCRIT 37.7 % (37-47); MEAN CELL VOLUME 92.6 fL (80-100); MEAN CORPUSCULAR HEMOGLOBIN 30.2 pg (25-34); MEAN CORPUSCULAR HGB CONC 32.6 g/dl (32-36); MEAN PLATELET VOLUME 10.1 fL (7.4-10.4); PLATELET COUNT 192 K/uL (130-400); RED BLOOD COUNT 4.07 M/uL (4.2-5.4); WHITE BLOOD COUNT 6.11 K/uL (4.8-10.8)
[2016-12-27 06:48] LABS: BUN/CREATININE RATIO 15.5 (10-20); CHOLESTEROL/HDL RATIO 5.5; CREATININE 1.1 mg/dl (0.60-1.20); POTASSIUM 3.9 mmol/L (3.5-5.1)
[2016-12-27] MEDS: BREO ELLIPTA - ORDER AWAITING ACTION SCH ×3 (07:29→15:56)
--- NOTE | 2016-12-27 08:23 | Progress Note ---
Progress Note Date of Service Dec 27, 2016. Progress Note No acute events overnight. Had ECHO this morning - results pending. Has been NPO --> EGD this AM if ECHO is stable.
[2016-12-27] MEDS ORDERED: POLYETHYLENE (MIRALAX) 17 GM PACK PO SCH (09:00)
[2016-12-27] MEDS ORDERED: FLUOXETINE HCL 20 MG CAP PO SCH (09:00)
[2016-12-27] MEDS ORDERED: ASPIRIN 81 MG ECTAB PO SCH (09:00)
[2016-12-27] MEDS ORDERED: FUROSEMIDE 20 MG TAB PO SCH (09:00)
[2016-12-27] MEDS ORDERED: PHENYLEPHRINE HCL INJ 10 MG/ML VIAL ONE (11:58)
[2016-12-27] MEDS ORDERED: LIDOCAINE HCL 2% 2 ML VIAL (20MG/ML) ONE (11:58)
[2016-12-27] MEDS ORDERED: PROPOFOL IV EMULSION 10 MG/ML 20 ML VIAL IV ONE (11:58)
--- NOTE | 2016-12-27 12:00 | GI REPORT ---
Procedure Date: 12/27/2016 11:28 AM Procedure: Upper GI endoscopy Indications: Dysphagia, Abnormal CT of the GI tract Medicines: Monitored Anesthesia Care Complications: No immediate complications. Estimated blood loss: None. Estimated Blood Loss: Estimated blood loss: none. Procedure: Pre-Anesthesia Assessment: - Prior to the procedure, a History and Physical was performed, and patient medications, allergies and sensitivities were reviewed. The patient's tolerance of previous anesthesia was reviewed. - ASA Grade Assessment: III - A patient with severe systemic disease. After obtaining informed consent, the endoscope was passed under direct vision. Throughout the procedure, the patient's blood pressure, pulse, and oxygen saturations were monitored continuously. The On-site loaner was introduced through the mouth, and advanced to the third part of duodenum. The upper GI endoscopy was accomplished with ease. The patient tolerated the procedure well. Findings: No endoscopic abnormality was evident in the esophagus to explain the patient's complaint of dysphagia. It was decided, however, to proceed with dilation of the entire esophagus. A guidewire was placed and the scope was withdrawn. Dilation was performed with an Eritrean dilator with no resistance at 48 Fr and 51 Fr. Normal mucosa was found in the upper third of the esophagus, in the middle third of the esophagus and in the lower third of the esophagus. The Z-line was regular and was found at the gastroesophageal junction. Biopsies were taken with a cold forceps for histology. A medium-sized hiatus hernia was present. The entire examined stomach was normal. Biopsies were taken with a cold forceps for Helicobacter pylori testing. The examined duodenum was normal. Verification of patient identification for the specimens was done by the physician and nurse using the patient's name, date and medical record number. Impression: - No endoscopic esophageal abnormality to explain patient's dysphagia. Esophagus dilated. Dilated. - Normal mucosa was found in the upper third of the esophagus, in the middle third of the esophagus and in the lower third of the esophagus. - Z-line regular, at the gastroesophageal junction. Biopsied. - Medium-sized hiatus hernia. - Normal stomach. Biopsied. - Normal examined duodenum. Recommendation: - Observe patient's clinical course. - Use Prilosec (omeprazole) 20 mg PO BID. - [facility] patient to [facility] for [facility] care. Chidi Lafleur M.D. Chidi Lafleur MD 12/27/2016 12:00:01 PM This report has been signed electronically. Note Initiated On: 12/27/2016 11:28 AM I attest to the content of the Intraoperative Record and orders documented therein, exceptions below
--- NOTE | 2016-12-27 12:29 | Anesthesiology Progress Note ---
Anesthesia Post Op Note Date & Time Dec 27, 2016 at 12:29 Vital Signs Pain Intensity: 0.0 Vital Signs Past 12 Hours Date Time Temp Pulse Resp B/P (MAP) Pulse Ox O2 Delivery O2 Flow Rate FiO2 12/27/16 12:15 70 16 103/57 (72) 98 Room Air 12/27/16 12:00 75 16 120/68 (85) 98 Nasal Cannula 3 12/27/16 11:00 36.7 73 20 135/70 (91) 98 Room Air 12/27/16 08:21 36.8 69 16 113/56 (75) 95 Room Air 12/27/16 08:00 Room Air 12/27/16 07:34 37.1 76 16 117/55 95 Room Air 12/27/16 04:00 37.1 76 16 117/55 (75) 95 Room Air 12/27/16 04:00 Room Air Notes Mental Status: alert / awake / arousable, participated in evaluation Pt Amnestic to Procedure: Yes Nausea / Vomiting: adequately controlled Pain: adequately controlled Airway Patency, RR, SpO2: stable & adequate BP & HR: stable & adequate Hydration State: stable & adequate Anesthetic Complications: no major complications apparent
[2016-12-27] MEDS: POTASSIUM CHLORIDE 20 MEQ TABCR PO SCH (14:22)
[2016-12-27] MEDS: ATORVASTATIN 40 MG TAB PO SCH (14:23)
--- NOTE | 2016-12-27 15:54 | Discharge Instructions ---
Discharge Instructions Date of Service Dec 27, 2016. Admission Reason for Admission: Chest Pain Discharge Discharge Diagnosis / Problem: Noncardiac chest pain, LUE numbness, Dysphagia s /p esoph dilation Discharge Goals Goal(s): Prevent Disease Progression Activity Recommendations Activity Limitations: per Instructions/Follow-up section . Instructions / Follow-Up Instructions / Follow-Up Please take all medications as instructed above. You have a follow-up appointment with Dr. Cervantes on 01/02 @ 2:55pm for follow -up from this hospitalization. Please bring all paperwork that you receive at discharge and arrive 10 minutes early. The Gastroenterology staff should be contacting you with the results of your biopsies within one week. It was recommended by the [employer] to get an echocardiogram performed non- urgently. This should be ordered by Dr. Cervantes on follow-up. Your numbness is likely coming from your neck, and not your heart. The cervical spine xrays performed revealed considerable "degenerative changes." This will need to be further looked at by your primary care physician. It was a pleasure taking care of you! Call if you have any questions or problems. You can reach a [facility] hospitalist on duty at [facility] 24 hours a day by calling [phone]. Take care of yourself. Lucina Andujar DO [facility] Hospitalist Current Hospital Diet Patient's current hospital diet: Regular Diet Discharge Diet Recommended Diet: Regular Diet Procedures Procedures Performed: EGD with biopsy and savory dilitation Pending Studies Studies pending at discharge: yes List of pending studies: biopsies from endoscopy Laboratory Results Lipid Panel Test 12/27/16 05:27 Range/Units Triglycerides Level 159 H 0-150 mg/dl Cholesterol Level 181 0-200 mg/dl HDL Cholesterol 33 mg/dl Cholesterol/HDL Ratio 5.5 LDL Cholesterol, Calculated 116 mg/dl Medical Emergencies . Who to Call and When: Medical Emergencies: If at any time you feel your situation is an emergency, please call 911 immediately. . Non-Emergent Contact Non-Emergency issues call your: Primary Care Provider . . "Provider Documentation" section prepared by Lucina Andujar. . VTE Core Measure Inpt VTE Proph given/why not?: Enoxaparin (Lovenox)SQ
--- NOTE | 2016-12-27 15:59 | Discharge Summary ---
Discharge Summary Date of Service Dec 27, 2016. Discharge Summary Admission Date: Dec 26, 2016 at 14:16 Discharge Date: Dec 27, 2016 Discharge Disposition: Home Principal Diagnosis: Chest pain-noncardiac origin COPD GERD Chronic LE edema Depression LUE numbness Procedures: EGD with biopsies and s/p esophageal dilation Vaccinations: None. Consultations: Cardio, GI Pending Studies/Follow-Up: see instructions below. Medication Reconciliation Continued Medications: Aspirin (Aspirin EC Low Dose) 81 Mg Ectab Fluoxetine (Prozac) 20 Mg Cap 20 MG PO QAM, CAP Fluticasone Furoate (Inhalatio (Arnuity Ellipta) 200 Mcg/Act Inh 200 MCG INH BID Fluticasone Furoate-Vilanterol (Breo Ellipta) 1 Inh Inh 1 PUFF INH QAM Furosemide (Lasix) 40 Mg Tab 1.5 TAB PO QAM, TAB Guaifenesin/Codeine (Robitussin-Ac Syrup) Syrp 5 ML PO HS, #236 Ipratropium-Albuterol (Duoneb) 3 Ml Nebu 1 TREATMENT INH QID PRN for SOB/Wheezing, INHA Mometasone Furoate (Nasal) (Mometasone Furoate) 50 Mcg/Act Spr 1 SPRAY AFIA DAILY PRN for SOB/Wheezing, #17 Omeprazole (Prilosec) 20 Mg Capcr 2 TAB PO HS, 0 Refills Polyethylene Glycol 3350 (Miralax) 1 Pow Pow 17 GM PO QAM, GM Potassium Chloride (K-Tabs) 10 Meq Tab 2 TAB PO BID Prednisone Tab (Prednisone) 10 Mg Tab 10 MG PO QAM, TAB Temazepam (Temazepam) 15 Mg Cap 15 MG PO HS, #30 Umeclidinium-Vilanterol (Anoro Ellipta 62.5-25 Mcg/INH) 1 Aer Aer 1 PUFF INH BID Admission Information HPI (per Admitting provider): 86 yo F with no history of heart disease presents to the ER after experiencing more intense chest pain today than usual. She states that this is the same pain that she has had for years, she was simply concerned because it was more intense and because she has some numbness and tingling in her LUE that has been present now for two weeks. She reports no identified triggers for her chest pain, stating it just happens. Later she reported some pain with exertion but reports that she does housework and gardening typically without any issues. She reports that it typically stays in her L breast area and doesn't move anywhere, is not associated with any symptoms except some worsening SOB which has also been chronic. She states that this pain has been present for many years, occurs almost every day and lasts about 10 minutes. Lying down helps it. She has been taking a baby aspirin since seeing Cardiology last year for a stress test for evaluation of this pain. This was negative. She also has some long-standing heartburn that she feels is well-controlled. In the ER she underwent a CTA to rule out PE, which was negative but did identify some thickening of the distal esophagus. The patient reports some chronic dysphagia to solids but there has been no progression. 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 She was sent to Dr. Mary for workup in preparation for hernia repair, however, after starting Reglan she became very sick and not only did her PCP take her off of this, she advised her to delay any further workup. This was last fall. Otherwise ROS is negative for fevers, chills, changes in sputum, wheezing or recent COPD flares. She also denies any nausea, vomiting, intolerance to PO, diarrhea, constipation or blood in her stool. There was no reported neck injury preceeding the arm numbness, it just occurred 2 weeks ago. Although she has feeling in her arm there is a pin prick that is present all down the L shoulder and arm. She has a h/o back surgery. She also reports some leg swelling, hand swelling recently and feels that her face was swollen yesterday. She currently denies any chest pain at this time. Physical Exam (per Admitting): General Appearance: WD/WN, no apparent distress Head: normocephalic, atraumatic Eyes: normal inspection, PERRL, sclerae normal ENT: pharynx normal (MMM) Neck: supple, no adenopathy, trachea midline Respiratory/Chest: chest non-tender, lungs clear, normal breath sounds, no respiratory distress, no accessory muscle use Cardiovascular: regular rate, rhythm, no edema, no gallop, no JVD, no murmur , normal peripheral pulses Abdomen/GI: normal bowel sounds, non tender, soft, no organomegaly Back: normal inspection, + pertinent finding (restricted sidebending to the right, restricted rotation to the right, normal flexion extension) Extremities/Musculoskelatal: normal inspection, no pedal edema Neurologic/Psych: pitch flaker II-XII nml as tested, alert, normal mood/affect, oriented x 3, + pertinent finding (decreased sensation on LUE>RUE) Skin: normal color, warm/dry Hospital Course She was admitted to telemetry and serial cardiac enzymes were drawn and negative. GI was consulted for distal esophageal thickening and planned to perform the EGD the following morning. At that time there were no abnormalities that were found, and her entire esophagus was dilated. Cardiology was consulted and agreed she did not appear to be having non-cardiac chest pain. By time of discharge, she was tolerating PO, mentating approrpriately, and ambulating at baseline. She was sent home in stable condition with recommendations to obtain a non-urgent echo as outpatient. Total time spent on discharge = 60 minutes This includes examination of the patient, discharge planning, medication reconciliation, and communication with other providers. Discharge Instructions Discharge Instructions Date of Service Dec 27, 2016. Admission Reason for Admission: Chest Pain Discharge Discharge Diagnosis / Problem: Noncardiac chest pain, LUE numbness, Dysphagia s /p esoph dilation Discharge Goals Goal(s): Prevent Disease Progression Activity Recommendations Activity Limitations: per Instructions/Follow-up section . Instructions / Follow-Up Instructions / Follow-Up Please take all medications as instructed above. You have a follow-up appointment with Dr. Cervantes on 01/02 @ 2:55pm for follow -up from this hospitalization. Please bring all paperwork that you receive at discharge and arrive 10 minutes early. The Gastroenterology staff should be contacting you with the results of your biopsies within one week. It was recommended by the [employer] to get an echocardiogram performed non- urgently. This should be ordered by Dr. Cervantes on follow-up. Your numbness is likely coming from your neck, and not your heart. The cervical spine xrays performed revealed considerable "degenerative changes." This will need to be further looked at by your primary care physician. It was a pleasure taking care of you! Call if you have any questions or problems. You can reach a [facility] hospitalist on duty at [facility] 24 hours a day by calling [phone]. Take care of yourself. Lucina Andujar DO [facility] Hospitalist Additional Copies To Patrick Hutchinson D.O.; Gabriel Cervantes M.D.
[2016-12-27] MEDS ORDERED: OMEP20TA PO (16:41)
[2016-12-27] MEDS ORDERED: PANTOprazole SOD 40 MG TAB PO SCH (21:00)
== END 2016-12-27 17:20 | disposition home or self-care (01) ==
LOC: C.EDB 10:03 → ENRESERV 13:51 → C.2E 14:16
PROVIDERS: ADMIT Hospitalist; ATTEND Hospitalist
DX: R07.89 Other chest pain (principal); K44.9 Diaphragmatic hernia without obstruction or gangrene; R13.10 Dysphagia, unspecified; K21.9 Gastro-esophageal reflux disease without esophagitis; J44.9 Chronic obstructive pulmonary disease, unspecified; R60.0 Localized edema; F32.9 Major depressive disorder, single episode, unspecified; R20.0 Anesthesia of skin; E78.5 Hyperlipidemia, unspecified; I12.9 Hypertensive chronic kidney disease with stage 1 through stage 4 chronic kidney disease, or unspecified chronic kidney disease; N18.3 Chronic kidney disease, stage 3 (moderate); Z87.891 Personal history of nicotine dependence; Z79.82 Long term (current) use of aspirin; Z79.899 Other long term (current) drug therapy; I34.0 Nonrheumatic mitral (valve) insufficiency; K29.50 Unspecified chronic gastritis without bleeding

== ENCOUNTER → 2017-08-08 | Outpatient (CLI) | payer OTHER ==
[~2017-08-08] MED LIST changes: -AMOX1TAB44 PO; +ASPEC81; +GUAISYP4 PO; +MOME6000 NAE; -NSNN50 NAE; -NYSCR30 EXT; +OMEP20TA PO; -PRLSR20 PO; -RBTDACL PO
--- NOTE | 2017-08-08 09:06 | DIAGNOSTIC IMAGING REPORT ---
PARANASAL SINUSES 4 VIEWS CLINICAL HISTORY: Chronic sinusitis. FINDINGS: 4 views of the paranasal sinuses are compared to sinus radiographs dated 03/07/[address] of the brain dated 12/26/2016. There is no radiographic evidence of paranasal sinus disease. The bony orbits are intact as imaged. The mastoid air cells appear well-pneumatized. The imaged calvarium appears maintained. The patient is edentulous. Dentures are noted. IMPRESSION: There is no radiographic evidence of paranasal sinus disease. Electronically signed by: Mayco Esparza M.D. 08/08/2017 9:05 AM Dictated Date/Time: 08/08/2017 9:04 AM
== END | disposition home or self-care (01) ==
LOC: C.RAD1850 08:50
PROVIDERS: ATTEND Physician Assistant
DX: J32.9 Chronic sinusitis, unspecified (principal)

== ENCOUNTER → 2017-09-19 | Day surgery (SDC) | payer OTHER ==
[2017-09-12 09:53] VITALS: Ht 152.4 cm; Wt 72.7 kg
[~2017-09-19] VITALS: Ht 152.4 cm; Wt 72.7 kg
[~2017-09-19] MED LIST changes: +ALBU18002 INH; +ASPCH81X PO; -ASPEC81; +FLUO20CA20 PO; -FLUO20CA35 PO; -FLUT1INH INH; -FLUT1INH5 INH; -GUAISYP4 PO; -IPRASOL4 INH; +LIDOCAINE HCL 2% 2 ML VIAL (20MG/ML) ONE; -OMEP20TA PO; -POLY335019 PO; -POTA10TA PO; -PRED10TA PO; +PRLSR20 PO; +PROPOFOL IV EMULSION 10 MG/ML 20 ML VIAL IV ONE; -RST15 PO; +SENN-61 PO; +SODIUM CHLORIDE 0.9% 500ML 500 ML IV ONE; +TEMA15CA4 PO; -UMEC1AER INH
--- NOTE | 2017-09-19 09:33 | Endo History and Physical ---
History & Physical Date of Service: Sep 19, 2017. Chief Complaint: h/o Polyps Referring Physician: History of Present Illness h/o polyps Past Medical History Asthma, Gastrointestinal Disorder, Anxiety, Reflux, Cancer, COPD, Chronic Steroid Use, Depression Past Surgical History Hx Cardiac Surgery: Yes (HEART CATH/NO STENTS) Hx Internal Defibrillator: No Hx Pacemaker: No Hx Abdominal Surgery: Yes (APPY, INGUINAL HERNIA) Hx of Implantable Prosthesis: No Hx Post-Op Nausea and Vomiting: No Hx Cancer Surgery: Yes (HYSTERECTOMY) Hx Thoracic Surgery: Yes (LUMBAR FUSION) Hx Orthopedic: Yes (RT TKA, ORIF RT HIP (DISLOCATION)) Hx Urinary Tract Surgery: No Family History Colon CA Social History Smoking Status: Former Smoker Hx Substance Use: No Hx Alcohol Use: Yes (OCCASIONALLY) Allergies Coded Allergies: Sulfa Antibiotics (Verified Allergy, Mild, RASH, GI [id number], 09/19/17) Current Medications Reported Home Medications Medications Dose Route/Sig Max Daily Dose Days Date Category Aspirin Chewable (Aspirin) 81 Mg Chew 81 Mg PO QPM 09/12/17 Reported Senokot (Senna) 8.6 Mg Tab 1 Tab PO QAM 09/12/17 Reported Fluoxetine (Fluoxetine Hcl (Pmdd)) 20 Mg Cap 1 Cap PO QAM 09/12/17 Reported Lasix (Furosemide) 40 Mg Tab 1.5 Tab PO QAM 09/12/17 Reported Restoril (Temazepam) 15 Mg Cap 15 Mg PO HS 09/12/17 Reported Prilosec (Omeprazole) 20 Mg Capcr 20 Mg PO HS 09/12/17 Reported Proair Respiclick (Albuterol Sulfate) 108 Mcg/Act Aer 2 Puff INH QID PRN 09/12/17 Reported Mometasone Furoate (Mometasone Furoate (Nasal)) 50 Mcg/Act Spr 1 [place] AFIA QAM 09/12/17 Reported Vital Signs Weight (Kilograms): 72.73 Height (Feet): 5 Height (Inches): 0 Physical Exam General Appearance: WD/WN, no apparent distress Assessment and Plan Colonoscopy today
--- NOTE | 2017-09-19 10:33 | GI REPORT ---
Procedure Date: 09/19/2017 9:38 AM Procedure: Colonoscopy Indications: Surveillance: Personal history of adenomatous polyps on last colonoscopy > 5 years ago, Family history of colon cancer in a first-degree relative Medicines: Propofol per Anesthesia Complications: No immediate complications. Estimated blood loss: Minimal. Estimated Blood Loss: Estimated blood loss was minimal. Procedure: Pre-Anesthesia Assessment: - Prior to the procedure, a History and Physical was performed, and patient medications, allergies and sensitivities were reviewed. The patient's tolerance of previous anesthesia was reviewed. - The risks and benefits of the procedure and the sedation options and risks were discussed with the patient. All questions were answered and informed consent was obtained. - Patient identification and proposed procedure were verified prior to the procedure by the physician and the nurse. The procedure was verified in the pre-procedure area in the procedure room. - Mental Status Examination: alert and oriented. Airway Examination: normal oropharyngeal airway and neck mobility. Respiratory Examination: clear to auscultation. CV Examination: normal. Abdominal Examination: bowel sounds present, abdomen soft and non-tender, no masses or organomegaly noted. - ASA Grade Assessment: III - A patient with severe systemic disease. After I obtained informed consent, the scope was passed under direct vision. Throughout the procedure, the patient's blood pressure, pulse, and oxygen saturations were monitored continuously. The scope was introduced through the anus and advanced to the cecum, identified by appendiceal orifice and ileocecal valve. The colonoscopy was performed without difficulty. The patient tolerated the procedure well. The quality of the bowel preparation was fair. Findings: The perianal and digital rectal examinations were normal. Pertinent negatives include normal sphincter tone and no palpable rectal lesions. Many sessile polyps were found in the entire colon. The polyps were small in size. These polyps were removed with a cold snare. Resection and retrieval were complete. Verification of patient identification for the specimen was done by the physician and nurse using the patient's name and date. Estimated blood loss was minimal. Multiple small and large-mouthed diverticula were found in the sigmoid colon. An area of moderate melanosis was found in the entire colon. External and internal hemorrhoids were found during retroflexion and during perianal exam. The hemorrhoids were medium-sized. Impression: - Preparation of the colon was fair. - Many small polyps in the entire colon, removed with a cold snare. Resected and retrieved. - Diverticulosis in the sigmoid colon. - Melanosis in the colon. - External and internal hemorrhoids. Recommendation: - Await pathology results. - Repeat colonoscopy for surveillance based on pathology results. - Return to referring physician as previously scheduled. - Discharge patient to home. Phyllis Nolasco D.O. Phyllis Nolasco DO 09/19/2017 10:32:42 AM This report has been signed electronically. Note Initiated On: 09/19/2017 9:38 AM I attest to the content of the Intraoperative Record and orders documented therein, exceptions below
--- NOTE | 2017-09-19 10:34 | Discharge Instructions ---
Endoscopy Patient Instructions Date / Procedure(s) Performed Sep 19, 2017. Colonoscopy Allergy Information Coded Allergies: Sulfa Antibiotics (Verified Allergy, Mild, RASH, GI RXN-BACTRIM, 09/19/17) Discharge Date / Findings Sep 19, 2017. multiple small polyps; diverticulosis; hemorrhoids Medication Instructions Restart Stopped Medication(s): OK to resume home medications Provider Instructions Activity Restrictions - No exercising or heavy lifting for 24 hours. - Do not drink alcohol the day of the procedure. - Do not drive a car or operate machinery until the day after the procedure. - Do not make any important decisions or sign important papers in 24 hours after the procedure. Following Day: - Return to full activity which may include returning to work/school. Diet Start your diet with liquids and light foods (jello, soup, juice, toast). Then eat your usual diet if not nauseated. Treatment For Common After Affects For mild abdominal pain, bloating, or excessive gas: - Rest - Eat lightly - Lie on right side Follow-Up Information Follow-up with Dr. Melgar as scheduled Anesthesia Information What You Should Know You have had a procedure that required some medicine to reduce anxiety and discomfort. This treatment is called moderate sedation. After receiving the treatment, you may be sleepy, but you will be able to breathe on your own. The effects of the treatment may last for several hours. Follow these instructions along with Activity/Diet recommendations noted above: * Do NOT do anything where dizziness or clumsiness would be dangerous. * Rest quietly at home today, then you can be up and about tomorrow. * Have a responsible person stay with you the rest of today. * You may have had an I.V. today. If so, you may take the dressing off later today. Recommendations Call your doctor if: * Trouble breathing * Continuous vomiting for more than 24 hours * Temperature above 101 degrees * Severe abdominal pain or bloating * Pain not relieved by pain medicine ordered * There is increased drainage or redness from any incision * A large amount of rectal bleeding greater than 2-3 tablespoons. (If you had a polyp/s removed or have hemorrhoids, a small amount of blood - from the rectum is to be expected.) * You have any unanswered questions or concerns. IN THE EVENT OF A SERIOUS EMERGENCY, GO TO THE NEAREST EMERGENCY ROOM Your discharge instructions were prepared by provider Phyllis Nolasco. Patient Instructions Signature Page Jazmín Ting Patient (or Guardian) Signature/Date: I have read and understand the instructions given to me by my caregivers. Caregiver/RN/Doctor Signature/Date: The above-named patient and/or guardian has received patient instructions on this date. + Original Patient Signature Page (only) stays with chart. Please make copy for patient.
--- NOTE | 2017-09-19 10:57 | Anesthesiology Progress Note ---
Anesthesia Post Op Note Date & Time Sep 19, 2017 at 10:57 Vital Signs Pain Intensity: 0 Vital Signs Past 12 Hours Date Time Temp Pulse Resp B/P (MAP) Pulse Ox O2 Delivery O2 Flow Rate FiO2 09/19/17 10:50 62 16 134/65 (88) 96 Room Air 09/19/17 10:35 36.2 62 16 116/64 (81) 95 Room Air 09/19/17 09:42 36.5 67 16 130/60 (83) 97 Room Air Notes Mental Status: alert / awake / arousable, participated in evaluation Pt Amnestic to Procedure: Yes Nausea / Vomiting: adequately controlled Pain: adequately controlled Airway Patency, RR, SpO2: stable & adequate BP & HR: stable & adequate Hydration State: stable & adequate Anesthetic Complications: no major complications apparent
[2017-09-19 11:05] VITALS: BP 134/59; PULSE 61; O2SAT 97
== END | disposition home or self-care (01) ==
LOC: C.GI 08:53
PROVIDERS: ATTEND Internal Medicine
DX: Z12.11 Encounter for screening for malignant neoplasm of colon (principal); K63.5 Polyp of colon; K64.4 Residual hemorrhoidal skin tags; K57.30 Diverticulosis of large intestine without perforation or abscess without bleeding; K64.8 Other hemorrhoids; Z86.010 Personal history of colon polyps; J44.9 Chronic obstructive pulmonary disease, unspecified; E78.5 Hyperlipidemia, unspecified; F41.9 Anxiety disorder, unspecified; K21.9 Gastro-esophageal reflux disease without esophagitis; F32.9 Major depressive disorder, single episode, unspecified; Z90.89 Acquired absence of other organs; Z90.710 Acquired absence of both cervix and uterus; Z80.0 Family history of malignant neoplasm of digestive organs; Z87.891 Personal history of nicotine dependence; Z88.2 Allergy status to sulfonamides; Z98.1 Arthrodesis status; Z96.651 Presence of right artificial knee joint; Z79.82 Long term (current) use of aspirin; Z85.42 Personal history of malignant neoplasm of other parts of uterus

== ENCOUNTER → 2018-02-23 | Outpatient (CLI) | payer OTHER ==
[~2018-02-23] MED LIST changes: -LIDOCAINE HCL 2% 2 ML VIAL (20MG/ML) ONE; -PROPOFOL IV EMULSION 10 MG/ML 20 ML VIAL IV ONE; -SODIUM CHLORIDE 0.9% 500ML 500 ML IV ONE
--- NOTE | 2018-02-23 10:18 | DIAGNOSTIC IMAGING REPORT ---
CHEST 2 VIEWS ROUTINE CLINICAL HISTORY: 87 years-old Female presenting with R05 [id number]. TECHNIQUE: PA and lateral views of the chest were obtained. COMPARISON: 12/26/2016. FINDINGS: Atherosclerosis of the aortic arch. Cardiac silhouette normal in size. Persistent elevation of the left hemidiaphragm. Lungs and pleural spaces clear. Osseous structures normal. Upper abdomen normal. IMPRESSION: 1. No acute cardiopulmonary disease. Electronically signed by: Garett Swartz M.D. 02/23/2018 10:16 AM Dictated Date/Time: 02/23/2018 10:14 AM
== END | disposition home or self-care (01) ==
LOC: C.RAD1850 10:01
PROVIDERS: ATTEND Physician Assistant
DX: J47.9 Bronchiectasis, uncomplicated (principal); R05 Cough; M54.9 Dorsalgia, unspecified

== ENCOUNTER 2019-05-21 16:14 | Observation (INO) ==
[2019-05-21] MEDS ORDERED: SODIUM CHLORIDE 0.9% 250 ML IV ONE (16:33)
--- NOTE | 2019-05-21 17:01 | XRay Report ---
XR forearm LT 2V, XR wrist LT 2V CLINICAL HISTORY: distal left forearm pain fall COMPARISON STUDY: Left wrist 02/03/2009. FINDINGS: No fractures within the proximal radius or proximal ulna. Soft tissue swelling at the wrist . Slightly comminuted and impacted fracture within the distal radius which demonstrates intra-articul ar extension. Mild dorsal angulation and dorsal displacement. No dislocation. Small well-corticated o ssific density along the dorsal aspect of the wrist favors an old triquetral bone injury. IMPRESSION: 1. Left distal radius fracture as described above. 2. The proximal radius and proximal ulna are intact. Electronically signed by: Chester Crawford M.D. 05/21/2019 4:59 PM
--- NOTE | 2019-05-21 17:04 | XRay Report ---
XR chest 1V portable CLINICAL HISTORY: 88 years-old Female presenting with Fall, Weakness. TECHNIQUE: Portable upright AP view of the chest was obtained. COMPARISON: 12/26/2016. FINDINGS: Atherosclerosis of the aortic arch. Cardiac silhouette enlarged. A left retrocardiac opacity is new f rom prior and may represent a hiatal hernia or relate to the descending thoracic aorta. Elevation of the right hemidiaphragm with eventration of the right hemidiaphragm as on prior exam. No other focal opacity. No large effusion or pneumothorax. Osteopenia may be present. Upper abdomen normal. IMPRESSION: 1. Left retrocardiac opacity is new from prior radiograph though most likely relates to the known un derlying hiatal hernia. This hiatal hernia was apparent on prior CTA chest from 12/26/2016, however, i t was absent radiographically on 12/26/2016. Interval development of aneurysmal dilatation or tortuosi ty of the descending thoracic aorta is considered less likely though difficult to exclude given the n ew radiographic finding in comparison to prior. 2. Cardiomegaly. No evidence of volume overload or advanced congestive change. Electronically signed by: Garett Swartz M.D. 05/21/2019 5:03 PM
--- NOTE | 2019-05-21 17:06 | XRay Report ---
XR pelvis 1-2V routine CLINICAL HISTORY: 88 years-old Female presenting with fall. TECHNIQUE: Single frontal view of the pelvis was obtained. COMPARISON: CT of abdomen and pelvis from 08/18/2008. FINDINGS: Postsurgical changes of transpedicular screw fixation from L4 to S1. No interlocking rods are present . Interbody spacer at L5-S1 and laminectomy defects noted. Sacroiliac joints, pubic symphysis, and hi p joints congruent. Arcuate lines of the sacrum are grossly intact. Osteopenia is suspected. Femoral necks and femoral heads are symmetric and grossly intact. Few surgical clips project over the left he mipelvis. The bony pelvis is intact. IMPRESSION: Allowing for osteopenia, no convincing evidence of acute osseous injury of the pelvis. Electronically signed by: Garett Swartz M.D. 05/21/2019 5:05 PM
[2019-05-21 17:14] LABS: Basophils # (auto) 0.03 K/uL (0-0.2); Basophils % (auto) 0.4 %; Eosinophils # (auto) 0.12 K/uL (0-0.5); Eosinophils % (auto) 1.7 %; Hematocrit (blood only) 35.2 % (37-47); Immature Granulocytes # (auto) 0.02 K/uL (0.00-0.02); Immature Granulocytes % (auto) 0.3 %; Lymphocytes # (auto) 2.58 K/uL (1.2-3.4); Lymphocytes % (auto) 36.8 %; Mean Corpuscular Hemoglobin 31.1 pg (25-34); Mean Corpuscular Hgb Conc 34.1 g/dL (32-36); Mean Corpuscular Volume 91.2 fL (80-100); Mean Platelet Volume 10.1 fL (7.4-10.4); Monocytes # (auto) 0.47 K/uL (0.11-0.59); Monocytes % (auto) 6.7 %; Neutrophils % (auto) 54.1 %; Platelet Count 170 K/uL (130-400); RDW Coefficient of Variation 13.8 % (11.5-14.5); RDW Standard Deviation 45.5 fL (36.4-46.3); Red Blood Count 3.86 M/uL (4.2-5.4); White Blood Count 7.02 K/uL (4.8-10.8)
--- NOTE | 2019-05-21 17:21 | CT Scan Report ---
CT head/brain wo con CLINICAL HISTORY: 88 years-old Female presenting with Fall, posterior head injury. TECHNIQUE: Multidetector CT imaging of the head was performed without the use of intravenous contrast . IV contrast: None. One or more dose lowering techniques were used consistent with the principles of ALARA (as low as reasonably achievable), including automatic exposure control, mA or kV adjustment t o individual patient size, and/or use of iterative reconstruction. COMPARISON: 12/26/2016. CT DOSE (mGy.cm): The estimated cumulative dose is 912.81. FINDINGS: [employer] topogram: The patient is edentulous. Proportional ventricular and sulcal prominence, likely age-related parenchymal volume loss. No hemorr luke. Brain parenchyma normal in appearance with preserved wilson-white differentiation. No acute caleb torial infarct. No mass effect or midline shift. No extra-axial fluid collection. Paranasal sinuses a nd mastoid air cells clear. Calvarium intact. IMPRESSION: 1. No acute intracranial abnormality. Electronically signed by: Garett Swartz M.D. 05/21/2019 5:19 PM
[2019-05-21 17:24] LABS: INR 1.1 (0.9-1.1); Prothrombin Time 10.9 Seconds (9.0-12.0)
--- NOTE | 2019-05-21 17:25 | CT Scan Report ---
CERVICAL SPINE CT CT DOSE: 912.81 mGy.cm HISTORY: fall, posterior head injury TECHNIQUE: Multiaxial CT images of the cervical spine were performed and reformatted in the sagittal and coronal plane without the use of contrast. A dose lowering technique was utilized adhering to th e principles of ALARA. COMPARISON: None. FINDINGS: No fractures. No subluxation. Prevertebral soft tissues and the C1-C2 interval are intact. No pneumothorax. Straightening of the cervical spine. Severe disc space narrowing from C3 through C7 with large anterior osteophytes. IMPRESSION: No fractures within the cervical spine. Electronically signed by: Chester Crawford M.D. 05/21/2019 5:24 PM
[2019-05-21 17:37] LABS: Alanine Aminotransferase 8 U/L (12-78); Albumin Level 3.3 gm/dl (3.4-5.0); Alkaline Phosphatase 115 U/L (45-117); Aspartate Aminotransferase 14 U/L (15-37); BUN Creatinine Ratio 16.1 (10-20); Bilirubin Direct 0.1 mg/dl (0-0.2); Bilirubin,Total 0.4 mg/dl (0.2-1); Blood Urea Nitrogen 16 mg/dl (7-18); Calcium 8.8 mg/dl (8.5-10.1); Carbon Dioxide 31 mmol/L (21-32); Chloride 101 mmol/L (98-107); Creatinine Clr Calc Pharmacy 33.4 ml/min; Est GFR (African American) 59.1; Glucose 109 mg/dl (70-99); Lipase 59 U/L (73-393); Magnesium 1.7 mg/dl (1.8-2.4); Potassium 2.5 mmol/L (3.5-5.1); Sodium 140 mmol/L (136-145); Total Protein 6.2 gm/dl (6.4-8.2); Troponin I < 0.015 ng/ml (0-0.045)
[2019-05-21] MEDS ORDERED: POTASSIUM CHLORIDE / WTR 10 MEQ/100 ML PLCT IV ONE (17:41)
[2019-05-21] MEDS ORDERED: ONDANSETRON INJ 2 MG/ML 2 ML VIAL IV STA (17:41)
[2019-05-21] MEDS ORDERED: fentaNYL citrate 100 MCG/2 ML VIAL IV STA (17:41)
--- NOTE | 2019-05-21 19:15 | History & Physical Report ---
Date of Service May 21, 2019 Assessment & Plan (1) Hypokalemia: Has been complaining of stomach upset for some time with nausea and vomiting but no diarrhea Complaint to have generalized weakness and noted to have a potassium of 2.5 in the emergency room without any EKG changes Will admit to telemetry unit for monitoring and potassium replacement Check PRP in the morning (2) Generalized weakness: Has been complaining of generalized weakness for some time with ambulatory dysfunction Contributed by low in potassium We will get PT and OT evaluation for further recommendation (3) Fracture of left wrist: Woke up from neck nap this afternoon and felt dizzy and ended up with a fall Hit her head and also fractured left wrist CT of the head has been negative No acute confusion at this time We will consult Ortho for further management of left wrist fracture The left upper extremity is in sling now (4) HTN (hypertension): She seems to be stable at this time Continue current medication (5) COPD (chronic obstructive pulmonary disease): History of COPD Does not have any wheezing and/or shortness of breath We will continue her current medications (6) Depression: No acute confusion Chest x-ray did show retrocardiac shadow Has history of hiatal hernia Cannot exclude any aortic root dilatation but does not have any cardiac and/or pain syndrome We will get a dedicated PA and lateral view to document to further DVT prophylaxis SCDs due to recent fracture CODE STATUS Full History of Present Illness Chief Complaint: Generalized weakness for a few days with status post fall this afternoon Primary Care Provider: Elvira Melgar DO She is an 88 years old female with significant past medical history including COPD, hypertension, hyperlipidemia, depression apparently has had a fall this afternoon when she was trying to go to bathroom after a nap. She felt dizzy and fell on her left side, tried to prevent the fall with the left hand and injured the head as well. She denies any chest pain shortness of breath, any numbness or tingling in the extremities or weakness involving any of the side before the fall. She did not have any loss of consciousness and she was brought into the emergency room for further evaluation. Apparently she has been complaining of some epigastric discomfort with nausea and occasional vomiting and diarrhea for the last week or so. She is ambulant at home with the use of a cane and recently she has been having difficulty with ambulation secondary to generalized weakness and knee arthritis. She was noted to have a very low potassium of 2.5 and the x-ray of the left wrist did show distal radius fracture. CT scan of the head was negative. Allergies Allergy/AdvReac Type Severity Reaction Status Date / Time Sulfa (Sulfonamide Allergy Mild RASH, GI Verified 05/21/19 16:36 Antibiotics) RXN-BACTRIM azithromycin Allergy Unknown Verified 05/21/19 16:36 metoclopramide [From Reglan] Allergy Unknown Verified 05/21/19 16:36 zolpidem [From Ambien] Allergy Unknown Verified 05/21/19 16:36 Home Medications Home Medications Medication Instructions Recorded Confirmed Type fluoxetine 20 mg PO BID 05/21/19 05/21/19 History fluticasone propionate 2 spray INTRANASAL DAILY 05/21/19 05/21/19 History omeprazole 40 mg PO BID 05/21/19 05/21/19 History sennosides-docusate sodium 1 tab-cap PO HS 05/21/19 05/21/19 History [Senna-S] temazepam 15 mg PO DAILY 05/21/19 05/21/19 History Past Med/Surg History Surgical History H/O exploratory laparotomy (Resolved) H/O sinus surgery (Resolved) H/O: hysterectomy (Resolved) S/P appendectomy (Resolved) S/P tonsillectomy and adenoidectomy (Resolved) Status post total right knee replacement (Resolved) Family History Other Family history non-contributory Social History Preferred Language: [place] Feels Safe at Home: Yes Smoking Status: Never smoker Review of Systems Review of Systems: All systems reviewed & are unremarkable except as noted in HPI & below Physical Exam Physical Exam: Lying in bed with some discomfort. Left upper extremity is in a sling Constitutional: + ill appearing; no acute distress Eyes: PERRL, conjunctivae normal, anicteric sclerae ENMT: external ear and nose normal, oropharynx normal Neck: trachea midline, no thyromegaly Respiratory: normal respiratory effort; no respiratory distress Auscultation: lungs clear to auscultation bilaterally and + diminished lung sounds Cardiovascular: Rate/Rhythm: regular rate and regular rhythm Heart Sounds: no murmur Gastrointestinal (Abdomen): Inspection/Auscultation: abdomen normal to inspection and normal bowel sounds; abdomen not distended Percussion/Palpation: + abdomen tender (Mildly tender in the epigastrium) and abdomen soft Musculoskeletal: Has generalized osteoarthritis but no acute arthritis in any of the joints Neurologic: Alert, awake and oriented x3. Generally weak but no focal neuro deficit Psychiatric: A+Ox3, euthymic affect Lymphatic: no cervical or axillary lymphadenopathy Results & Data Vital Signs (Past 12 Hours) Vital Signs Temp Pulse Resp BP Pulse Ox 05/21/19 16:22 37.0 C 71 16 132/63 97 Laboratory Results Short CBC 05/21/19 Range/Units 17:00 WBC 7.02 (4.8-10.8) K/uL Hgb 12.0 (12.0-16.0) g/dL Hct 35.2 L (37-47) % Plt Count 170 (130-400) K/uL BMP 05/21/19 17:00 Sodium 140 Potassium 2.5 L* Chloride 101 Carbon Dioxide 31 BUN 16 Creatinine 1.00 Glucose 109 H Calcium 8.8 Cardiac Enzymes 05/21/19 Range/Units 17:00 Troponin I < 0.015 (0-0.045) ng/ml Liver Function 05/21/19 Range/Units 17:00 Total Bilirubin 0.4 (0.2-1) mg/dl Direct Bilirubin 0.1 (0-0.2) mg/dl AST 14 L (15-37) U/L ALT 8 L (12-78) U/L Alkaline Phosphatase 115 (45-117) U/L Albumin 3.3 L (3.4-5.0) gm/dl Medications Administered Current Inpatient Medications Potassium Chloride (K Benitez / Wtr) 10 meq in 100 mls @ 100 mls/hr IV Q1H STA Stop: 05/21/19 20:00 Potassium Chloride/Sodium Chloride (Normal Saline W/20 Meq Kcl) 20 meq in 1,000 mls @ 80 mls/hr IV .[id number] Stop: 05/23/19 08:44 Code Status & VTE Plan VTE Prophylaxis Plan VTE Prophylaxis will be ordered: Yes (1) Fracture of left wrist Encounter type: initial encounter Fracture type: closed Qualified Code(s): S62.102A - Fracture of unspecified carpal bone, left wrist, initial encounter for closed fracture
[2019-05-21] MEDS ORDERED: ALBUTEROL HFA 8 GM INHALER INH PRN (19:24)
[2019-05-21] MEDS: POTASSIUM CHLORIDE / WTR 10 MEQ/100 ML PLCT IV SCH ×3 (21:01→22:59)
[2019-05-21] MEDS: FLUOXETINE HCL 20 MG CAP PO SCH (21:50)
[2019-05-21] MEDS: PANTOprazole 40 MG TAB PO SCH (21:50)
[2019-05-21] MEDS: DOCUSATE SODIUM/SENNA 50/8.6MG TAB PO SCH (21:50)
--- NOTE | 2019-05-21 22:40 | Emergency Department Note ---
Entered by Phyllis Marrufo acting as a scribe for Godfrey Good MD ED Provider Note Name: GERALD JOYA Age: 88 Arrives Via: Ambulance Informant: Patient, CC: Fall HPI: 88F arrives for evaluation of an episode of a fall that occurred this morning. The patient reports that she fell because her right knee gave out from underneath her. She states that she hurt her left wrist. She notes that she hit the back of her head on a door and endorses some pain in the area currently. She states that she spit up blood after her fall and had some burning in her chest. She denies any hip pain or headaches. She denies any specific weakness as the reason for her fall but states that she has been feeling generally weak lately. She reports that she has not been eating as much recently as she is trying to lose weight. She notes that she fell yesterday and again a week ago. She notes that she uses a walker at home, but it is unclear if the patient has been using it to ambulate regularly. The patient reports that she had her knee operated on 8 years ago and notes that it has been giving out from underneath her regularly. She denies being followed by her physician for these issues, but then notes that she had x-rays completed after her last fall due to a bruise on her chin. She notes that she takes a baby aspirin but denies taking any other blood thinners. The patient reports that she recently had a stomach virus that lasted around 1 week. ROS: See above HPI for pertinent positives & negatives. A total of 10 systems reviewed and were otherwise negative. Past Medical History:Depression, COPD, HTN, Dyslipidemia, Diverticulosis Past Surgical History:Tonsillectomy, adenoidectomy, appendectomy, hysterectomy, sinus surgery, total right knee replacement, exploratory laparotomy Family History:Non contributory Social History:Retired, , lives at home. Home Medications:Fluoxetine, Omeprazole, Senna, Temazepam, Fluticasone, Aspirin Allergies:Sulfa, Azithromycin, Metoclopramide, Zolpidem Vitals:BP: 132/63; Pulse: 71; Resp: 16; Temp: 98.6F; O2 Sat 97% RA Physical Exam: GENERAL: Patient is tired and dehydrated appearing and in no acute distress. HEAD: Tenderness to palp of posterior scalp. EYES: No scleral icterus, unremarkable pupils. ENT: Mucous membranes dry, no nasal congestion. NECK: No masses appreciated, nomeningismus, trachea is midline. RESPIRATORY: No dyspnea. Clear to auscultation and equal bilaterally. No wheeze, no rhonchi. CARDIOVASCULAR: Regular rate and rhythm.No murmurs, rubs, gallops appreciated. GASTROINTESTINAL: Abdomen soft, non-tender, no peritonitis.Bowel sounds positive.No masses appreciated. BACK: No midline tenderness, no CVA tenderness EXTREMITIES: Normal motion all extremities, no cyanosis, no edema. Deformity of the left wrist with pain on ROM. NEUROLOGIC: Alert and oriented, no acute motor or sensory deficits, no focal weakness, cranial nerves grossly intact. SKIN: No rash, no jaundice, no diaphoresis. ED Course: Prior Medical Record, Triage/Nursing Notes, Medications, Allergies reviewed by Me Vital Signs: reviewed and remarkable for no significant abnormalities Labs:Reviewed and remarkable for hypokalemia, hypomag Interventions: Saline Lock, NSS Bolus, Fentanyl 50mcg IV, Zofran 4mg IV, Klor Con 10meq IV Imaging: Radiology results as stated below per my review and the radiologist's interpretation: XR chest 1V portable CLINICAL HISTORY: 88 years-old Female presenting with Fall, Weakness. TECHNIQUE: Portable upright AP view of the chest was obtained. COMPARISON: 12/26/2016. FINDINGS: Atherosclerosis of the aortic arch. Cardiac silhouette enlarged. A left retrocardiac opacity is new from prior and may represent a hiatal hernia or relate to the descending thoracic aorta. Elevation of the right hemidiaphragm with eventration of the right hemidiaphragm as on prior exam. No other focal opacity. No large effusion or pneumothorax. Osteopenia may be present. Upper abdomen normal. IMPRESSION: 1. Left retrocardiac opacity is new from prior radiograph though most likely relates to the known underlying hiatal hernia. This hiatal hernia was apparent on prior CTA chest from 12/26/2016, however, it was absent radiographically on 12/26/2016. Interval development of aneurysmal dilatation or tortuosity of the descending thoracic aorta is considered less likely though difficult to exclude given the new radiographic finding in comparison to prior. 2. Cardiomegaly. No evidence of volume overload or advanced congestive change. Electronically signed by: Garett Swartz M.D. 05/21/2019 5:03 PM XR forearm LT 2V, XR wrist LT 2V CLINICAL HISTORY: distal left forearm pain fall COMPARISON STUDY: Left wrist 02/03/2009. FINDINGS: No fractures within the proximal radius or proximal ulna. Soft tissue swelling at the wrist. Slightly comminuted and impacted fracture within the distal radius which demonstrates intra-articular extension. Mild dorsal angulation and dorsal displacement. No dislocation. 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 IMPRESSION: 1. Left distal radius fracture as described above. 2. The proximal radius and proximal ulna are intact. Electronically signed by: Chester Crawford M.D. 05/21/2019 4:59 PM XR pelvis 1-2V routine CLINICAL HISTORY: 88 years-old Female presenting with fall. TECHNIQUE: Single frontal view of the pelvis was obtained. COMPARISON: CT of abdomen and pelvis from 08/18/2008. FINDINGS: Postsurgical changes of transpedicular screw fixation from L4 to S1. No interlocking rods are present. Interbody spacer at L5-S1 and laminectomy defects noted. Sacroiliac joints, pubic symphysis, and hip joints congruent. Arcuate lines of the sacrum are grossly intact. Osteopenia is suspected. Femoral necks and femoral heads are symmetric and grossly intact. Few surgical clips project over the left hemipelvis. The bony pelvis is intact. IMPRESSION: Allowing for osteopenia, no convincing evidence of acute osseous injury of the pelvis. Electronically signed by: Garett Swartz M.D. 05/21/2019 5:[address] DOSE: 912.81 mGy.cm HISTORY: fall, posterior head injury TECHNIQUE: Multiaxial CT images of the cervical spine were performed and reformatted in the sagittal and coronal plane without the use of contrast. A dose lowering technique was utilized adhering to the principles of ALARA. COMPARISON: None. FINDINGS: No fractures. No subluxation. Prevertebral soft tissues and the C1-C2 interval are intact. No pneumothorax. Straightening of the cervical spine. Kimi re disc space narrowing from C3 through C7 with large anterior osteophytes. IMPRESSION: No fractures within the cervical spine. Electronically signed by: Chester Crawford M.D. 05/21/2019 5:[address] head/brain wo con CLINICAL HISTORY: 88 years-old Female presenting with Fall, posterior head injury. TECHNIQUE: Multidetector CT imaging of the head was performed without the use of intravenous contrast. IV contrast: None. One or more dose lowering techniques were used consistent with the principles of ALARA (as low as reasonably achievable), including automatic exposure control, mA or kV adjustment to individual patient size, and/or use of iterative reconstruction. COMPARISON: 12/26/2016. CT DOSE (mGy.cm): The estimated cumulative dose is 912.81. FINDINGS: Official Court Interpreter topogram: The patient is edentulous. Proportional ventricular and sulcal prominence, likely age-related parenchymal volume loss. No hemorrhage. Brain parenchyma normal in appearance with preserved wilson-white differentiation. No acute territorial infarct. No mass effect or midline shift. No extra-axial fluid collection. Paranasal sinuses and mastoid air cells clear. Calvarium intact. IMPRESSION: 1. No acute intracranial abnormality. Electronically signed by: Garett Swartz M.D. 05/21/2019 5:19 PM EKG:Per My Interpretation: Indication Weakness/fall: NSR 69 bpm, qtc 482, no ectopy, no acute ischemia. T waves are inverted anterior new from EKG 12/27/16. Reassessments/Times: 1627:The patient was evaluated in room C04. A complete history and physical examination was performed. 1744: [facility] hospitalist paged at this time. 1750: Patient asked for pain meds. Fentanyl being ordered. 1800: I assisted in placing orthoglass spint to left forearm. Gently reduced left distal fracture. Noted that it seemed difficult to keep bone in place. Patient tolerated well. NVI afterwards. Patient is waiting on evaluation by hospitalist. 1814: I discussed the patients case with Dr. Joshi, who will evaluate the patient for further management and care. Blood pressure:Normal.No Referral necessary Disposition:Hospitalization Differentials:Etiologies such as metabolic, infection, hypo/hyperglycemia, electrolyte abnormalities, cardiac sources, intracerebral event, toxicologic, neurologic, amongst other pathologies. Medical Decision Makin yr old female arrives from home after falling multiple times the last few days, including this afternoon during which she landed on left wrist and struck head on the door. She is breathing comfortably and stable with no neuro deficits. She has normal CT head/cspine for age. Xrays with distal left radial compression fracture. Splinted and I did attempt gentle reduction which she tolerated well. She has severe hypokalemia as well as some hypomag. Clearly is falling at home already which could be K but will need further work-up and evaluation. Hospitalist on board with plan. makes clear she is too unsteady at home for him to take care of. Impression: Generalized weakness Hypokalemia Closed head injury Left wrist fracture The scribe's documentation has been prepared under my direction and personally reviewed by me in its entirety. I confirm that the note above accurately reflects all work, treatment, procedures, and medical decision making performed by me. Godfrey Good MD Impression & Plan Generalized weakness, Hypokalemia, Closed head injury, Fracture of left wrist Past Med/Surg History Surgical History H/O exploratory laparotomy (Resolved) H/O sinus surgery (Resolved) H/O: hysterectomy (Resolved) S/P appendectomy (Resolved) S/P tonsillectomy and adenoidectomy (Resolved) Status post total right knee replacement (Resolved) Family History Other Family history non-contributory Social History Preferred Language: Swedish Beliefs That Will Affect Care: None Current Living Situation: Spouse Other Information That Helps Us Care for You: Yes Feels Safe at Home: Yes Safety Concerns: Feels Safe At This Time Smoking Status: Former smoker Hx Alcohol Use: No Hx Substance Use: No Results & Data Vital Signs Vital Signs - 24 hr 05/21/19 16:22 05/21/19 16:30 05/21/19 16:43 Temperature 37.0 C Temperature Source Oral Pulse Rate 71 73 Pulse Rate from SpO2 Sensor 77 73 Pulse Rhythm Regular Pulse Strength Normal Respiratory Rate 16 23 14 Respiratory Effort / Characteristics Non-Labored Respiratory Depth Normal Respiratory Pattern Regular Blood Pressure 132/63 105/64 Blood Pressure Mean 86 80 Blood Pressure Position Lying Pulse Oximetry 97 97 97 Oxygen Delivery Method Room Air Sepsis Recent Fever Within 48 Hours No Sepsis Action Taken by Nursing No Action Required 05/21/19 17:00 05/21/19 17:52 05/21/19 18:00 Temperature Temperature Source Pulse Rate 68 80 70 Pulse Rate from SpO2 Sensor 72 71 Pulse Rhythm Pulse Strength Respiratory Rate 12 17 10 L Respiratory Effort / Characteristics Respiratory Depth Respiratory Pattern Blood Pressure 128/68 Blood Pressure Mean 82 Blood Pressure Position Pulse Oximetry 95 95 Oxygen Delivery Method Sepsis Recent Fever Within 48 Hours Sepsis Action Taken by Nursing 05/21/19 18:01 05/21/19 18:30 05/21/19 18:31 Temperature Temperature Source Pulse Rate 70 84 76 Pulse Rate from SpO2 Sensor 70 76 76 Pulse Rhythm Pulse Strength Respiratory Rate 10 L 12 11 L Respiratory Effort / Characteristics Respiratory Depth Respiratory Pattern Blood Pressure 119/58 L Blood Pressure Mean 81 Blood Pressure Position Pulse Oximetry 94 96 95 Oxygen Delivery Method Sepsis Recent Fever Within 48 Hours Sepsis Action Taken by [facility] Medications Current Medication List: was personally reviewed by me Laboratory Data Attestation: I reviewed the patient's lab results. Result diagrams: 05/21/19 17:00 05/21/19 17:00 Lab Results 05/21/19 05/21/19 05/21/19 Range/Units 17:00 17:00 17:00 WBC 7.02 (4.8-10.8) K/uL RBC 3.86 L (4.2-5.4) M/uL Hgb 12.0 (12.0-16.0) g/dL Hct 35.2 L (37-47) % MCV 91.2 (80-100) fL MCH 31.1 (25-34) pg MCHC 34.1 (32-36) g/dL RDW Std Deviation 45.5 (36.4-46.3) fL RDW Coeff of Tonio 13.8 (11.5-14.5) % Plt Count 170 (130-400) K/uL MPV 10.1 (7.4-10.4) fL Immature Gran % (Auto) 0.3 % Neut % (Auto) 54.1 % Lymph % (Auto) 36.8 % Oldham % (Auto) 6.7 % Eos % (Auto) 1.7 % Baso % (Auto) 0.4 % Immature Gran # (Auto) 0.02 (0.00-0.02) K/uL Neut # (Auto) 3.80 (1.4-6.5) K/uL Lymph # (Auto) 2.58 (1.2-3.4) K/uL Oldham # (Auto) 0.47 (0.11-0.59) K/uL Eos # (Auto) 0.12 (0-0.5) K/uL Baso # (Auto) 0.03 (0-0.2) K/uL PT 10.9 (9.0-12.0) Seconds INR 1.1 (0.9-1.1) Sodium 140 (136-145) mmol/L Potassium 2.5 L* (3.5-5.1) mmol/L Chloride 101 (98-107) mmol/L Carbon Dioxide 31 (21-32) mmol/L Anion Gap 8.0 (3-11) BUN 16 (7-18) mg/dl Creatinine 1.00 (0.6-1.2) mg/dl Est Cr Clr Drug Dosing 33.4 ml/min Est GFR ( Amer) 59.1 Est GFR (Non-Af Amer) 51.0 BUN/Creatinine Ratio 16.1 (10-20) Glucose 109 H (70-99) mg/dl Calcium 8.8 (8.5-10.1) mg/dl Magnesium 1.7 L (1.8-2.4) mg/dl Total Bilirubin 0.4 (0.2-1) mg/dl Direct Bilirubin 0.1 (0-0.2) mg/dl AST 14 L (15-37) U/L ALT 8 L (12-78) U/L Alkaline Phosphatase 115 (45-117) U/L Troponin I < 0.015 (0-0.045) ng/ml Total Protein 6.2 L (6.4-8.2) gm/dl Albumin 3.3 L (3.4-5.0) gm/dl Lipase 59 L (73-393) U/L Administered Medications Fluoxetine HCl (Prozac) 20 mg PO BID TWILA Stop: 06/20/19 20:59 Last Admin: 05/21/19 21:50 Dose: 20 mg Documented by: [id number] Potassium Chloride (K Benitez / Wtr) 10 meq in 100 mls @ 100 mls/hr IV Q1H TWILA Stop: 05/21/19 22:59 Last Admin: 05/21/19 21:49 Dose: 100 mls/hr Documented by: [id number] Infusion: 05/21/19 21:49 Dose: 100 mls/hr Documented by: [id number] Admin: 05/21/19 21:01 Dose: 100 mls/hr Documented by: [id number] Pantoprazole Sodium (Protonix) 40 mg PO BID TWILA Stop: 06/20/19 20:59 Last Admin: 05/21/19 21:50 Dose: 40 mg Documented by: [id number] Senna/Docusate Sodium (Senokot S) 1 tab PO HS TWILA Stop: 06/20/19 20:59 Last Admin: 05/21/19 21:50 Dose: 1 tab Documented by: [id number] Discontinued Medications Fentanyl Citrate (Fentanyl Citrate) 50 mcg IV NOW STA Stop: 05/21/19 17:42 Last Admin: 05/21/19 17:56 Dose: 50 mcg Documented by: [id number] Sodium Chloride (Nss) 250 mls @ 999 mls/hr IV .Q16M ONE Stop: 05/21/19 16:48 Last Infusion: 05/21/19 17:24 Dose: 0 mls/hr Documented by: [id number] Admin: 05/21/19 17:02 Dose: 999 mls/hr Documented by: [id number] Potassium Chloride (K Benitez / Wtr) 10 meq in 100 mls @ 100 mls/hr IV ONE ONE Stop: 05/21/19 18:40 Last Infusion: 05/21/19 19:10 Dose: 0 mls/hr Documented by: [id number] Admin: 05/21/19 17:56 Dose: 100 mls/hr Documented by: [id number] Ondansetron HCl (Zofran) 4 mg IV NOW STA Stop: 05/21/19 17:42 Last Admin: 05/21/19 17:56 Dose: 4 mg Documented by: [id number] Blood Pressure Blood Pressure Findings: Elevated blood pressure Blood Pressure Disposition: did not require urgent referral Discharge Plan Visit Data *Final* Discharge Date/Time: 05/21/19 19:37 Chief Complaint: Fall Stated Complaint: FALL, WRIST PAIN ED Provider: Godfrey Good Discharge Problem: Generalized weakness, Hypokalemia, Closed head injury, Fracture of left wrist Patient Disposition: Admitted As Inpatient Discharge Instructions Interventions: ED Discharge Assessment Last Done: 05/21/19 19:37 Discharge Problem: Closed head injury Qualifiers: Encounter type: initial encounter Qualified Code(s): S09.90XA - Unspecified injury of head, initial encounter Fracture of left wrist Qualifiers: Encounter type: initial encounter Fracture type: closed Qualified Code(s): S62.102A - Fracture of unspecified carpal bone, left wrist, initial encounter for closed fracture The scribe's documentation has been prepared under my direction and personally reviewed by me in its entirety. I confirm that the note above accurately reflects all work, treatment, procedures, and medical decision making performed by me.
[2019-05-21] MEDS: TRAMADOL HCL 50 MG TABLET PO PRN (22:59)
[2019-05-22] MEDS: NSS + 20MEQ KCL 20 MEQ/1,000 ML BAG IV SCH ×2 (00:05→11:45)
[2019-05-22] MEDS: MoRPHine SULFATE 4 MG/ML 1 ML CARP\\VIAL IV PRN ×3 (00:29→22:39)
[2019-05-22] MEDS ORDERED: ONDANSETRON INJ 2 MG/ML 2 ML VIAL IV PRN (00:55)
[2019-05-22] MEDS ORDERED: ONDANSETRON INJ 2 MG/ML 2 ML VIAL IV SCH (01:00)
[2019-05-22 09:14] LABS: BUN Creatinine Ratio 11.9 (10-20); Calcium 8.3 mg/dl (8.5-10.1); Creatinine Clr Calc Pharmacy 32.2 ml/min; Est GFR (African American) 56.3; Est GFR (Non-African American) 48.6; Magnesium 1.6 mg/dl (1.8-2.4); Potassium 3.1 mmol/L (3.5-5.1)
[2019-05-22] MEDS: FLUTICASONE PROPIONATE NA SPR 16 GM BTL SCH (09:14)
[2019-05-22] MEDS: PANTOprazole 40 MG TAB PO SCH ×2 (09:14→20:15)
[2019-05-22] MEDS: FLUOXETINE HCL 20 MG CAP PO SCH ×2 (09:14→20:16)
[2019-05-22] MEDS: ACETAMINOPHEN SOL 650 MG/20.3 ML UDC PO PRN ×2 (09:14→20:17)
[2019-05-22] MEDS: TRAMADOL HCL 50 MG TABLET PO PRN ×3 (10:41→20:19)
[2019-05-22] MEDS ORDERED: MAGNESIUM SULFATE / D5W 1 GM/100 ML BAG IV ONE (13:45)
[2019-05-22] MEDS ORDERED: POTASSIUM CHLORIDE 20 MEQ TABCR PO ONE ×2 (13:45→20:30)
--- NOTE | 2019-05-22 15:48 | Consultation Report ---
DATE OF CONSULTATION: 05/22/2019 REASON FOR CONSULTATION: This is an 88-year-old right hand dominant female seen at the request of Dr. Joshi and Dr. Venegas regarding left wrist pain status post fall. HISTORY OF PRESENT ILLNESS: Apparently, this 88-year-old female was in her usual state of health when she was at her home. She was trying to go to the bathroom after a nap. She felt dizzy and fell on her left side. In trying to prevent her fall with left hand, she injured the left wrist and struck her head. She is in denial of any other prodrome or numbness or tingling in the extremities or weakness, shortness of breath or chest pain. She did not have any known loss of consciousness. She presented to the Emergency Department at [facility] where she was evaluated by the emergency physician and then admitted to the medical service with consultation made for orthopedic surgery after she was placed in a splint for her left wrist. Radiographs have been obtained of her wrist in the Emergency Department and ice was applied. She was noted to have a distal radius fracture. PAST MEDICAL HISTORY: Significant for COPD, hypertension, hyperlipidemia and depression. PAST SURGICAL HISTORY: Exploratory laparotomy, sinus surgery, hysterectomy, appendectomy, tonsils and adenoid resection, right total knee replacement. ALLERGIES: SULFA, AZITHROMYCIN, METOCLOPRAMIDE AND ZOLPIDEM. MEDICATIONS AT HOME: Fluoxetine, fluticasone propionate, omeprazole, Senna S, temazepam. SOCIAL HISTORY: She denies tobacco or drug use. She is an occasional drinker. She is and lives with her spouse. She is retired. PHYSICAL EXAMINATION: This is a pleasant 88-year-old female sitting upright in her hospital room. Dr. Venegas is present. She is alert and oriented x3. Speech is clear and fluent. Affect is appropriate. She has no complaints of any specific acute wrist pain; however, she does have some wrist soreness. She is in a wrist splint to left upper extremity. The splint is well-aligned, well-padded and overwrapped with an Jaren wrap. The fingers are pink and warm. She has normal motion and sensation of the fingers. Cap refill is brisk, approximately 2 seconds. Radial pulse is palpable. Some tenderness with palpation of the distal radius through the splint. RADIOGRAPHS: Reviewed, demonstrate a left distal radius (Colles type) fracture with intraarticular extension, dorsal angulation of approximately 20 degrees. The ulna appears intact. Osteopenia is evident. Degenerative changes of the carpometacarpal joint at the base of the thumb. No other significant fractures are noted. IMPRESSION: Left closed intraarticular Colles fracture of the distal radius with minimal dorsal angulation, status post fall, left upper extremity. RECOMMENDATIONS: Maintain splint, ice, elevate, nonoperative management. Tylenol for pain control. Follow up in the clinic with Dr. Corona for continued followup and repeat radiographs. Thank you for the opportunity to consult in the care of this patient.
--- NOTE | 2019-05-22 17:44 | Hospitalist Progress Note ---
Date of Service May 22, 2019 Assessment & Plan (1) Hypokalemia: Possible related to nausea, vomiting and diarrhea K on admission 2.5 K today 3.1 and replaced Continue monitor BMP (2) Generalized weakness: Ambulatory dysfunction S/P Fall CT head showed no acute intracranial abnormality CT cervical showed no fractures within the cervical spine. Continue PT/OT eval fall precaution (3) Fracture of left wrist: Due to Fall Left wrist xray showed left distal radius fracture Ortho on board recommended conservative management Continue to maintain splint, ice and keep arm elevate Tylenol for pain control. Follow up in the clinic with Dr. Corona in 1-2 week wit repeat radiographs. (4) HTN (hypertension): BP stable Continue current medication (5) COPD (chronic obstructive pulmonary disease): History of COPD Stable (6) Depression: Continue Fluoxetine 20mg BID Stable Chest x-ray did show retrocardiac shadow Has history of hiatal hernia CXR showed left retrocardiac opacity is new from prior radiograph though most likely relates to the known underlying hiatal hernia. Asymptomatic Continue to follow outpatient with PCP DVT prophylaxis SCDs/Will add lovenox subq CODE STATUS Full Code Disposition Will discharge home tomorrow Subjective Pt was seen and examined Sitting in chair with no distress Pt is very anxious to go home today She said that she only has pain in her left wrist with movement She said that her diarrhea and nausea resolve Denies any chest pain, palpitation, dizziness and SOB Physical Exam Physical Exam: General- No acute distress Head- atraumatic Eyes- PERRL, EOMI, ENT- oropharynx clear Neck- supple, no JVD Lungs- clear to auscultation Heart- regular rhythm; no murmur Abdomen- normal bowel sounds, soft, nontender Extremities- no calf tenderness, left wrist tenderness with splint and wrap with latoya bandage Neuro- alert, oriented x 3; PERRL, EOMI; no facial palsy; no dysarthria Skin- warm & dry Results & Data Vital Signs (Past 12 Hours) Vital Signs Temp Pulse Pulse Resp BP Pulse Ox 05/22/19 16:00 73 05/22/19 15:33 36.7 C 73 18 126/58 L 97 05/22/19 12:00 73 05/22/19 11:18 36.6 C 73 16 125/59 L 95 05/22/19 07:53 37.1 C 76 16 112/48 L 91 (1) Fracture of left wrist Encounter type: initial encounter Fracture type: closed Qualified Code(s): S62.102A - Fracture of unspecified carpal bone, left wrist, initial encounter for closed fracture
[2019-05-22 18:44] LABS: Potassium 3.5 mmol/L (3.5-5.1)
[2019-05-22] MEDS: DOCUSATE SODIUM/SENNA 50/8.6MG TAB PO SCH (20:16)
[2019-05-22 21:38] LABS: Appearance Urine Clear (Clear); Bilirubin Urine Negative (Negative); Blood Urine Negative (Negative); Color Urine Yellow; Glucose Urine UA Negative (Negative); Ketones Urine Negative (Negative); Leukocyte Esterase Urine 1+ (Negative); Nitrite Urine Negative (Negative); Protein Urine Negative (Negative); Specific Gravity Urine 1.025 (1.000-1.030); Urobilinogen Urine Negative (Negative)
[2019-05-22 21:49] LABS: Bacteria Urine Negative (Negative); RBC Urine 0-4 /hpf (0-4)
[2019-05-22] MEDS: HEPARIN SOD 5,000 UNIT/0.5 ML VIAL SQ SCH (22:36)
[2019-05-23] MEDS: HEPARIN SOD 5,000 UNIT/0.5 ML VIAL SQ SCH (07:55)
[2019-05-23 07:57] LABS: BUN Creatinine Ratio 15.5 (10-20); Calcium 8.9 mg/dl (8.5-10.1); Creatinine Clr Calc Pharmacy 37.2 ml/min; Est GFR (African American) 67.1; Est GFR (Non-African American) 57.9; Potassium 3.8 mmol/L (3.5-5.1)
[2019-05-23] MEDS: FLUOXETINE HCL 20 MG CAP PO SCH (08:10)
[2019-05-23] MEDS: PANTOprazole 40 MG TAB PO SCH (08:10)
[2019-05-23] MEDS: ACETAMINOPHEN SOL 650 MG/20.3 ML UDC PO PRN (08:10)
[2019-05-23] MEDS: FLUTICASONE PROPIONATE NA SPR 16 GM BTL SCH (08:10)
[2019-05-23] MEDS ORDERED: ACETAMINOPHEN 325 MG TAB PO PRN (11:38)
--- NOTE | 2019-05-23 13:35 | Hospitalist Progress Note ---
Date of Service May 23, 2019 Assessment & Plan (1) Hypokalemia: Possible related to nausea, vomiting and diarrhea K on admission 2.5 K today 3.8 Advised pt to increase k supplement in diet Stable (2) Generalized weakness: Ambulatory dysfunction S/P Fall CT head showed no acute intracranial abnormality CT cervical showed no fractures within the cervical spine. Continue PT/OT eval Refused to go to inpatient rehab fall precaution (3) Fracture of left wrist: Due to Fall Left wrist xray showed left distal radius fracture Ortho on board recommended conservative management Continue to maintain splint, ice and keep arm elevate Tylenol for pain control. Follow up in the clinic with Dr. Corona in 1-2 week wit repeat radiographs. (4) HTN (hypertension): BP stable Continue current medication (5) COPD (chronic obstructive pulmonary disease): History of COPD Stable (6) Depression: Continue Fluoxetine 20mg BID Stable Chest x-ray did show retrocardiac shadow Has history of hiatal hernia CXR showed left retrocardiac opacity is new from prior radiograph though most likely relates to the known underlying hiatal hernia. Asymptomatic Continue to follow outpatient with PCP DVT prophylaxis SCDs/Will add lovenox subq CODE STATUS Full Code Disposition Will discharge home today Subjective Pt was seen and examined Sitting in chair with no distress with at bedside Pt is very anxious to go home today I discussed with her about that she is not safe to go home due to the fall She refused inpatient rehab Denies any chest pain, palpitation, dizziness and SOB Physical Exam Physical Exam: General- No acute distress Head- atraumatic Eyes- PERRL, EOMI, ENT- oropharynx clear Neck- supple, no JVD Lungs- clear to auscultation Heart- regular rhythm; no murmur Abdomen- normal bowel sounds, soft, nontender Extremities- no calf tenderness, left wrist tenderness with splint and wrap with latoya bandage Neuro- alert, oriented x 3; PERRL, EOMI; no facial palsy; no dysarthria Skin- warm & dry Results & Data Vital Signs (Past 12 Hours) Vital Signs Temp Pulse Pulse Resp BP Pulse Ox 05/23/19 11:46 36.8 C 74 16 125/61 96 05/23/19 10:49 36.8 C 74 16 125/61 96 05/23/19 08:28 36.6 C 78 16 127/62 95 05/23/19 07:24 75 05/23/19 05:17 36.9 C 77 18 143/62 H 94 (1) Fracture of left wrist Encounter type: initial encounter Fracture type: closed Qualified Code(s): S62.102A - Fracture of unspecified carpal bone, left wrist, initial encounter for closed fracture
[2019-05-23] MEDS: TRAMADOL HCL 50 MG TABLET PO PRN (13:45)
--- NOTE | 2019-05-24 00:50 | Discharge Summary ---
Date of Service May 23, 2019 Admission HPI Per Admitting Provider She is an 88 years old female with significant past medical history including COPD, hypertension, hyperlipidemia, depression apparently has had a fall this afternoon when she was trying to go to bathroom after a nap. She felt dizzy and fell on her left side, tried to prevent the fall with the left hand and injured the head as well. She denies any chest pain shortness of breath, any numbness or tingling in the extremities or weakness involving any of the side before the fall. She did not have any loss of consciousness and she was brought into the emergency room for further evaluation. Apparently she has been complaining of some epigastric discomfort with nausea and occasional vomiting and diarrhea for the last week or so. She is ambulant at home with the use of a cane and recently she has been having difficulty with ambulation secondary to generalized weakness and knee arthritis. She was noted to have a very low potassium of 2.5 and the x-ray of the left wrist did show distal radius fracture. CT scan of the head was negative. Admission Exam Per Admitting Provider Physical Exam: Lying in bed with some discomfort. Left upper extremity is in a sling Constitutional: + ill appearing; no acute distress Eyes: PERRL, conjunctivae normal, anicteric sclerae ENMT: external ear and nose normal, oropharynx normal Neck: trachea midline, no thyromegaly Respiratory: normal respiratory effort; no respiratory distress Auscultation: lungs clear to auscultation bilaterally and + diminished lung sounds Cardiovascular: Rate/Rhythm: regular rate and regular rhythm Heart Sounds: no murmur Gastrointestinal (Abdomen): Inspection/Auscultation: abdomen normal to inspection and normal bowel sounds; abdomen not distended Percussion/Palpation: + abdomen tender (Mildly tender in the epigastrium) and abdomen soft Musculoskeletal: Has generalized osteoarthritis but no acute arthritis in any of the joints Neurologic: Alert, awake and oriented x3. Generally weak but no focal neuro deficit Psychiatric: A+Ox3, euthymic affect Lymphatic: no cervical or axillary lymphadenopathy Principal Diagnosis Hypokalemia Generalized weakness Ambulatory dysfunction S/P FALL Fracture of left wrist Discharge Exam General- No acute distress Head- atraumatic Eyes- PERRL, EOMI, ENT- oropharynx clear Neck- supple, no JVD Lungs- clear to auscultation Heart- regular rhythm; no murmur Abdomen- normal bowel sounds, soft, nontender Extremities- no calf tenderness, left wrist tenderness with splint and wrap with latoya bandage Neuro- alert, oriented x 3; PERRL, EOMI; no facial palsy; no dysarthria Skin- warm & dry Discharge Data Allergies Allergy/AdvReac Type Severity Reaction Status Date / Time Sulfa (Sulfonamide Allergy Mild RASH, GI Verified 05/21/19 16:36 Antibiotics) [id number] azithromycin Allergy Unknown Verified 05/21/19 16:36 metoclopramide [From Reglan] Allergy Unknown Verified 05/21/19 16:36 zolpidem [From Ambien] Allergy Unknown Verified 05/21/19 16:36 Consultations 05/21/19 18:16 ED Decision to Admit Stat 05/21/19 19:22 Consult Orthopedic Surgery Routine Ordered Studies 05/21/19 16:36 CT cervical spine wo con Stat CT head/brain wo con Stat CT head/brain wo con CLINICAL HISTORY: 88 years-old Female presenting with Fall, posterior head injury. TECHNIQUE: Multidetector CT imaging of the head was performed without the use of intravenous contrast. IV contrast: None. One or more dose lowering techniques were used consistent with the principles of ALARA (as low as reasonably achievable), including automatic exposure control, mA or kV adjustment to individual patient size, and/or use of iterative reconstruction. COMPARISON: 12/26/2016. CT DOSE (mGy.cm): The estimated cumulative dose is 912.81. FINDINGS: Food Inspector topogram: The patient is edentulous. Proportional ventricular and sulcal prominence, likely age-related parenchymal volume loss. No hemorrhage. Brain parenchyma normal in appearance with preserved wilson-white differentiation. No acute territorial infarct. No mass effect or midline shift. No extra-axial fluid collection. Paranasal sinuses and mastoid air cells clear. Calvarium intact. IMPRESSION: 1. No acute intracranial abnormality. Electronically signed by: Garett Swartz M.D. 05/21/2019 5:19 PM Dictated: 05/21/191715 Transcribed: 05/21/[address] DOSE: 912.81 mGy.cm HISTORY: fall, posterior head injury TECHNIQUE: Multiaxial CT images of the cervical spine were performed and reformatted in the sagittal and coronal plane without the use of contrast. A dose lowering technique was utilized adhering to the principles of ALARA. COMPARISON: None. FINDINGS: No fractures. No subluxation. Prevertebral soft tissues and the C1-C2 interval are intact. No pneumothorax. Straightening of the cervical spine. Severe disc space narrowing from C3 through C7 with large anterior osteophytes. IMPRESSION: No fractures within the cervical spine. Electronically signed by: Chester Crawford M.D. 05/21/2019 5:24 PM Dictated: 05/21/191716 Transcribed: 05/21/191716 XR forearm LT 2V, XR wrist LT 2V CLINICAL HISTORY: distal left forearm pain fall COMPARISON STUDY: Left wrist 02/03/2009. FINDINGS: No fractures within the proximal radius or proximal ulna. Soft tissue swelling at the wrist. Slightly comminuted and impacted fracture within the distal radius which demonstrates intra-articular extension. Mild dorsal angulation and dorsal displacement. No dislocation. 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 IMPRESSION: 1. Left distal radius fracture as described above. 2. The proximal radius and proximal ulna are intact. Electronically signed by: Chester Crawford M.D. 05/21/2019 4:59 PM Dictated: 05/21/191656 Transcribed: 05/21/191656 XR pelvis 1-2V routine CLINICAL HISTORY: 88 years-old Female presenting with fall. TECHNIQUE: Single frontal view of the pelvis was obtained. COMPARISON: CT of abdomen and pelvis from 08/18/2008. FINDINGS: Postsurgical changes of transpedicular screw fixation from L4 to S1. No interlocking rods are present. Interbody spacer at L5-S1 and laminectomy defects noted. Sacroiliac joints, pubic symphysis, and hip joints congruent. Arcuate lines of the sacrum are grossly intact. Osteopenia is suspected. Femoral necks and femoral heads are symmetric and grossly intact. Few surgical clips project over the left hemipelvis. The bony pelvis is intact. IMPRESSION: Allowing for osteopenia, no convincing evidence of acute osseous injury of the pelvis. Electronically signed by: Garett Swartz M.D. 05/21/2019 5:05 PM Dictated: 05/21/191702 Transcribed: 05/21/191702 XR forearm LT 2V, XR wrist LT 2V CLINICAL HISTORY: distal left forearm pain fall COMPARISON STUDY: Left wrist 02/03/2009. FINDINGS: No fractures within the proximal radius or proximal ulna. Soft tissue swelling at the wrist. Slightly comminuted and impacted fracture within the distal radius which demonstrates intra-articular extension. Mild dorsal angulation and dorsal displacement. No dislocation. 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 IMPRESSION: 1. Left distal radius fracture as described above. 2. The proximal radius and proximal ulna are intact. Electronically signed by: Chester Crawford M.D. 05/21/2019 4:59 PM Dictated: 05/21/191656 Transcribed: 05/21/191656 XR chest 1V portable CLINICAL HISTORY: 88 years-old Female presenting with Fall, Weakness. TECHNIQUE: Portable upright AP view of the chest was obtained. COMPARISON: 12/26/2016. FINDINGS: Atherosclerosis of the aortic arch. Cardiac silhouette enlarged. A left retrocardiac opacity is new from prior and may represent a hiatal hernia or rela te to the descending thoracic aorta. Elevation of the right hemidiaphragm with eventration of the right hemidiaphragm as on prior exam. No other focal opacity. No large effusion or pneumothorax. Osteopenia may be present. Upper abdomen normal. IMPRESSION: 1. Left retrocardiac opacity is new from prior radiograph though most likely relates to the known underlying hiatal hernia. This hiatal hernia was apparent on prior CTA chest from 12/26/2016, however, it was absent radiographically on 12/26/2016. Interval development of aneurysmal dilatation or tortuosity of the descending thoracic aorta is considered less likely though difficult to exclude given the new radiographic finding in comparison to prior. 2. Cardiomegaly. No evidence of volume overload or advanced congestive change. Electronically signed by: Garett Swartz M.D. 05/21/2019 5:03 PM Dictated: 05/21/190 Transcribed: 05/21/191699 Hospital Course (1) Hypokalemia: Possible related to nausea, vomiting and diarrhea K on admission 2.5 K today 3.8 Advised pt to increase k supplement in diet Stable (2) Generalized weakness: Ambulatory dysfunction S/P Fall CT head showed no acute intracranial abnormality CT cervical showed no fractures within the cervical spine. Continue PT/OT eval Refused to go to inpatient rehab fall precaution (3) Fracture of left wrist: Due to Fall Left wrist xray showed left distal radius fracture Ortho on board recommended conservative management Continue to maintain splint, ice and keep arm elevate Tylenol for pain control. Follow up in the clinic with Dr. Corona in 1-2 week wit repeat radiographs. (4) HTN (hypertension): BP stable Continue current medication (5) COPD (chronic obstructive pulmonary disease): History of COPD Stable (6) Depression: Continue Fluoxetine 20mg BID Stable Chest x-ray did show retrocardiac shadow Has history of hiatal hernia CXR showed left retrocardiac opacity is new from prior radiograph though most likely relates to the known underlying hiatal hernia. Asymptomatic Continue to follow outpatient with PCP DVT prophylaxis SCDs/Will add lovenox subq CODE STATUS Full Code Disposition Will discharge home today Total Time Total Time Spent Total Time Spent (In Minutes): 35 minutes Total Time Includes: Examination of the Patient, Discharge Planning, Medication Reconciliation, Communication With Other Providers and Other Discharge Plan Discharge Items Patient Disposition: Home - Home Health Services Reason For Visit: FALL,LEFT WRIST FRACTURE,GENERALIZED WEAKNESS Discharge Diagnosis: Hypokalemia Generalized weakness Ambulatory dysfunction S/P FALL Fracture of left wrist Activity: Resume your previous activity Activity Comment: As tolerated Non-emergency contact: Primary Care Provider and Specialist Call non-emergency contact if: you have any medication questions Follow-up/Referrals: Elvira Melgar DO [Primary Care Provider] - Diet: Heart Healthy Addtl Attending Provider Instructions: Discharge home with home health services (refused inpatient rehab) Follow up with primary care provider Dr. Sauceda (Dr. Melgar's colleague) on 05/27 @ 12:45 PM [facility] Dr. Corona in 1 to 2 weeks (Please call to schedule for the appointment @ ) Continue physical and occupational therapy Fall precaution Continue to maintain splint, ice keep arm elevates Tylenol for pain control. Increase potassium supplement on diet Your physician will check BMP to monitor your potassium resolves Pending Studies at Discharge: No Stand-Alone Forms: My [employer], Smoking Cessation Medications and DC Order Prescriptions: Continued sennosides-docusate sodium [Senna-S] 8.6-50 mg Tablet 1 tab-cap PO HS RF: 0 temazepam 15 mg capsule 15 mg PO DAILY RF: 0 omeprazole 20 mg capsule,delayed release(DR/EC) 40 mg PO BID RF: 0 fluoxetine 20 mg capsule 20 mg PO BID RF: 0 fluticasone propionate 50 mcg/actuation spray,suspension 2 spray INTRANASAL DAILY RF: 0 Discharge Orders: Discharge Order (Routine); Ordered 05/23/19 Ordered By: Christin Venegas Admission Data Admit Date/Time: 05/21/19 19:16 Attending Provider: Christin Venegas Admit Provider: Jen Joshi Primary Care Provider: Elvira Melgar Other Providers: Jen Joshi ; John Donovan ; Lemuel Corona ; Joselo Leigh ; Divya Middleton ; Humza Small ; Yoselin Villegas ; Hank Skinner ; Gabriel Lopez ; Tian Concepcion ; Gabriel Barnes Andrew J. ; Tian Mendosa ; Mirza Lanza ; Marty Christian ; Jewel Michele ; Garett Salmon ; Fredo Rodriguez ; Yoselin Malin Casey R ; Octavio Brady ; Madhu Mayer Other Interventions: Discharge Summary Assessment (RN) Last Done: 05/23/19 11:46 DC Date/Time DO NOT enter until pt leaves facility: 05/23/19 15:14
== END 2019-05-23 15:14 | disposition home health service (06) ==
LOC: 2E 16:14 → ED 16:14 → SUATTDRO 18:57 → 2E 19:37

== ENCOUNTER 2021-01-27 16:00 | Inpatient (IN) ==
[2021-01-27] MEDS ORDERED: ONDANSETRON INJ 2 MG/ML 2 ML VIAL IV STA (18:36)
[2021-01-27] MEDS ORDERED: KETOROLAC TROMETHAMINE 15 MG/ML VIAL IV ONE (18:36)
[2021-01-27] MEDS ORDERED: ACETAMINOPHEN 1000 MG/100 ML IV IV STA (18:36)
[2021-01-27] MEDS ORDERED: MoRPHine SULFATE 2 MG/ML CARP IV STA (18:36)
--- NOTE | 2021-01-27 18:42 | Emergency Department Note ---
Impression & Plan Closed femur fracture, Fall, Periprosthetic fracture around internal prosthetic knee joint, Left hip pain ED Provider Note NAME: GERALD JOYA AGE: 89 SEX: F : [id number] ARRIVES VIA: Walk-In INFORMANT: [Patient][family] ED PROVIDER(S): [Mayco Quinones MD] CHIEF COMPLAINT: Fall HISTORY OF PRESENT ILLNESS: The patient is an 89-year-old female who states that 5-1/2 hours ago, she tripped and fell. She injured her right knee and her left hip. She thought she may have scraped her lateral left eye but there is no pain there and there is no abrasion. She has no new head pain. No neck pain. No back pain. Patient states the pain in the knee is a 9/10 and she cannot walk. It is quite swollen. The left hip pain is not as severe as the right knee pain. The patient is not on blood thinners. She has been in baseline health. She has not injured her abdomen or her chest or upper extremities. REVIEW OF SYSTEMS: See HPI for pertinent positives and negatives. A total of ten systems were reviewed and were otherwise negative. PMHx/PSHx: See Below SOCIAL HISTORY: See Below. PHYSICAL EXAM: GENERAL: Patient is in no acute distress. HEENT: No acute trauma, normocephalic atraumatic, mucous membranes moist, no nasal congestion, no scleral icterus. No scalp hematomas. NECK: No stridor, no adenopathy, nontender posterior C-spine, trachea is midline. LUNGS: Clear to auscultation bilaterally, no wheeze, no rhonchi, breath sounds equal. HEART: 2/6 systolic murmur, regular rate and rhythm. ABDOMEN: Soft, nontender, bowel sounds positive, no hernias, no peritonitis. EXTREMITIES: No cyanosis. The patient has a swollen right knee and it is flexed. It is quite painful to palpate and move. There is an obvious right knee joint effusion. No evidence for right lower extremity neurovascular compromise. The right ankle and foot are nontender. The patient's left hip can be moved with no pain. There is some pain to palpate the lateral aspect of the left hip though. NEUROLOGIC: Oriented x 3, no acute motor or sensory deficits, no focal weakness. SKIN: No rash, no jaundice, no diaphoresis. DIFFERENTIAL DIAGNOSIS: Muscular strain, fracture, dislocation, DVT, joint effusion, infection, soft tissue injury, vascular compromise, head injury, C-spine injury, as well as other pathologies. EMERGENCY DEPARTMENT COURSE/PROCEDURES: MEDICAL DECISION MAKING: There is a mild leukocytosis, this could be consistent with infection or just her pain. There is no anemia. There is a normal platelet count. Potassium is slightly low but not in need of emergent correction. No concerning renal failure. Covid testing returned negative. Pelvis and left femur/hip films were done, no fractures were seen. Films of the right knee were performed and there is a distal femur fracture. The fracture is around the knee prosthesis. On exam, there is no evidence for a right lower extremity neurovascular compromise. I could not find evidence for injury to the head, neck, chest, back or abdomen. The patient received IV morphine for pain, she received IV Zofran for nausea. She received IV Toradol for pain and IV Tylenol for pain. I talked to orthopedics. The patient is being hospitalized. She is going to require orthopedic intervention. I did speak with the patient and case management. The on-call hospitalist was consulted. Past Med/Surg History Medical History CKD (chronic kidney disease), stage III COPD (chronic obstructive pulmonary disease) Depression Diastolic dysfunction Diverticulosis Dyslipidemia GERD (gastroesophageal reflux disease) HTN (hypertension) Surgical History H/O exploratory laparotomy H/O sinus surgery H/O: hysterectomy S/P appendectomy S/P tonsillectomy and adenoidectomy Status post total right knee replacement Family History (Updated 01/27/21 @ 21:46 by Marika Hernandez PA-C) Other Colorectal cancer Diabetes Hypertension Stroke Social History Smoking Status: Never smoker Second Hand Exposure: No; Do You Dip or Chew Tobacco: No; Tobacco Cessation Education Requested by Patient: No Hx Alcohol Use: Yes Alcohol type: hard liquor Hx Substance Use: No Preferred Language: Divehi Communication Ability: Effective 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 Beliefs That Will Affect Care: None marital status: Current Living Situation: Spouse Other Information That Helps Us Care for You: No Feels Safe at Home: Yes Safety Concerns: Feels Safe At This Time Assistive Devices: Denture - Upper, Denture - Lower and Glasses Assistive Devices Comment: has oxygen tank and walker and cane at home, does not currently use Allergies Allergies Allergy/AdvReac Type Severity Reaction Status Date / Time azithromycin Allergy Intermediate ITCHY RASH Verified 01/27/21 19:43 metoclopramide [From Reglan] Allergy Intermediate ITCHY RASH Verified 01/27/21 19:43 zolpidem [From Ambien] Allergy Intermediate ITCHY RASH Verified 01/27/21 19:43 Sulfa (Sulfonamide Allergy Mild RASH, GI Verified 01/27/21 19:43 Antibiotics) [id number] Home Meds Home Medications Medication Instructions Recorded Confirmed fluticasone propionate 50 2 spray INTRANASAL DAILY PRN 05/21/19 01/27/21 mcg/actuation nasal spray,suspension temazepam 15 mg capsule 15 mg PO HS 05/21/19 01/27/21 albuterol sulfate 90 mcg/actuation 2 puff INHALATION Q4H PRN 01/27/21 01/27/21 aerosol inhaler aspirin 81 mg tablet,delayed 81 mg PO DAILY 01/27/21 01/27/21 release famotidine 40 mg tablet 40 mg PO DAILY PRN 01/27/21 01/27/21 fluoxetine 20 mg capsule 20 mg PO TID PRN 01/27/21 01/27/21 hydrocortisone 2.5 % topical cream 1 applic TOPICAL BID PRN 01/27/21 01/27/21 hydroxyzine HCl 25 mg tablet 25 mg PO HS PRN 01/27/21 01/27/21 loratadine 10 mg tablet 10 mg PO DAILY PRN 01/27/21 01/27/21 mometasone-formoterol HFA 200 2 puff INHALATION BID PRN 01/27/21 01/27/21 mcg-5 mcg/actuation aerosol inhaler (Dulera) omeprazole 20 mg capsule,delayed 40 mg PO HS 01/27/21 01/27/21 release potassium chloride 10 mEq 10 meq PO BIDM 01/27/21 01/27/21 tablet,extended release sennosides 8.6 mg tablet (senna) 17.2 mg PO HS 01/27/21 01/27/21 tiotropium bromide 2.5 2 puff INHALATION DAILY PRN 01/27/21 01/27/21 mcg/actuation mist for inhalation (Spiriva Respimat) triamcinolone acetonide 0.1 % 1 applic TOPICAL BID PRN 01/27/21 01/27/21 topical cream Previous Rx's Medication Instructions Recorded furosemide 40 mg tablet 60 mg PO DAILY #135 tab 01/07/21 Results & Data (ED) Vital Signs Vital Signs - 24 hr 01/27/21 16:13 01/27/21 19:27 01/27/21 21:47 Temperature 36.6 C Temperature Source Temporal Artery Scan Pulse Rate 73 Pulse Rate [Radial] 67 75 Respiratory Rate 18 16 18 Respiratory Effort / Characteristics Non-Labored Spontaneous Respiratory Depth Normal Respiratory Pattern Regular Blood Pressure 129/61 Blood Pressure [Left Arm] 144/62 H 128/67 Blood Pressure Mean 83 Blood Pressure Mean [Left Arm] 89 87 Pulse Oximetry 97 98 96 Oxygen Delivery Method Room Air Room Air Room Air Sepsis Recent Fever Within 48 Hours No Sepsis New/Unexplained Change in Mental Status No Sepsis Action Taken by Nursing No Action Required Home Medications Current Medication List: was personally reviewed by me Laboratory Data Attestation: I reviewed the patient's lab results. Result diagrams: 01/27/21 17:35 01/27/21 17:35 Lab Results 01/27/21 01/27/21 01/27/21 Range/Units 17:35 17:35 17:35 WBC 14.58 H (4.8-10.8) K/uL RBC 4.10 L (4.2-5.4) M/uL Hgb 13.4 (12.0-16.0) g/dL Hct 39.4 (37-47) % MCV 96.1 (80-100) fL MCH 32.7 (25-34) pg MCHC 34.0 (32-36) g/dL RDW Std Deviation 46.4 H (36.4-46.3) fL RDW Coeff of Tonio 13.3 (11.5-14.5) % Plt Count 269 (130-400) K/uL MPV 10.0 (7.4-10.4) fL Sodium 137 (136-145) mmol/L Potassium 3.4 L (3.5-5.1) mmol/L Chloride 101 (98-107) mmol/L Carbon Dioxide 28 (21-32) mmol/L Anion Gap 8.0 (3-11) BUN 19 H (7-18) mg/dl Creatinine 1.21 H (0.6-1.2) mg/dl Est Cr Clr Drug Dosing Not Reportable Est GFR ( Amer) 46.3 ml/min Est GFR (Non-Af Amer) 39.9 ml/min BUN/Creatinine Ratio 15.8 (10-20) Glucose 178 H (70-99) mg/dl Calcium 9.5 (8.5-10.1) mg/dl Magnesium 2.0 (1.8-2.4) mg/dl Total Creatine Kinase 50 (26-192) U/L COVID-19 Eval Order SARS-CoV-2 (PCR) (Negative) 01/27/21 01/27/21 Range/Units 20:58 20:58 WBC (4.8-10.8) K/uL RBC (4.2-5.4) M/uL Hgb (12.0-16.0) g/dL Hct (37-47) % MCV (80-100) fL MCH (25-34) pg MCHC (32-36) g/dL RDW Std Deviation (36.4-46.3) fL RDW Coeff of Tonio (11.5-14.5) % Plt Count (130-400) K/uL MPV (7.4-10.4) fL Sodium (136-145) mmol/L Potassium (3.5-5.1) mmol/L Chloride (98-107) mmol/L Carbon Dioxide (21-32) mmol/L Anion Gap (3-11) BUN (7-18) mg/dl Creatinine (0.6-1.2) mg/dl Est Cr Clr Drug Dosing Est GFR ( Amer) ml/min Est GFR (Non-Af Amer) ml/min BUN/Creatinine Ratio (10-20) Glucose (70-99) mg/dl Calcium (8.5-10.1) mg/dl Magnesium (1.8-2.4) mg/dl Total Creatine Kinase (26-192) U/L COVID-19 Eval Order Covid19 at [facility] SARS-CoV-2 (PCR) NEGATIVE (Negative) Administered Medications Potassium Chloride 40 meq/ (Sodium Chloride) 1,020 mls @ 75 mls/hr IV .[id number] STA Stop: 01/28/21 11:10 Last Admin: 01/27/21 22:44 Dose: 75 mls/hr Documented by: [id number] Discontinued Medications Acetaminophen (Acetaminophen 1000 Mg/100 Ml Iv) 1,000 mg IV NOW STA Stop: 01/27/21 18:37 Last Admin: 01/27/21 18:47 Dose: 1,000 mg Documented by: [id number] Ketorolac Tromethamine (Ketorolac Tromethamine 15 Mg/Ml Vial) 10 mg IV NOW ONE Stop: 01/27/21 18:37 Last Admin: 01/27/21 18:47 Dose: 10 mg Documented by: [id number] Morphine Sulfate (Morphine Sulfate 2 Mg/Ml Carp) 2 mg IV NOW STA Stop: 01/27/21 18:37 Last Admin: 01/27/21 18:47 Dose: 2 mg Documented by: [id number] Ondansetron HCl (Ondansetron Inj 2 Mg/Ml 2 Ml Vial) 4 mg IV NOW STA Stop: 01/27/21 18:37 Last Admin: 01/27/21 18:48 Dose: 4 mg Documented by: [id number] Potassium Chloride (Potassium Chloride Crtab 20 Meq Tabcr) 40 meq PO NOW STA Stop: 01/27/21 20:50 Last Admin: 01/27/21 22:30 Dose: 40 meq Documented by: [id number] Imaging Data Radiologist's Impression: Femur X-Ray 01/27/21 18:34 XR femur LT 2V routine CLINICAL HISTORY: fall, pain COMPARISON: May 21, 2019 DISCUSSION: No definite acute fracture is seen. Irregularity a of the left greater trochanter cortex appears similar to prior. Overall evaluation is limited due to diffuse severe osteopenia. Orthopedic hardware is again seen projecting to the lower lumbar region. Degenerative changes of the left hip joint are again seen. IMPRESSION: No acute fracture or dislocation. ACT 112: Negative or not required by law. The above report was generated using voice recognition software. It may contain grammatical, syntax or spelling errors. Electronically signed by: Kalee Magdaleno DO 01/27/2021 7:55 PM Knee X-Ray 01/27/21 18:34 XR knee RT 3V CLINICAL HISTORY: fall, pain COMPARISON: April 27, 2019 DISCUSSION: Interval irregularity of posterior medial aspect of the distal femur is seen. Also there are questionable lucent line are seen within osseous portion of the distal femur which might represent acute fracture. Evaluation is limited due to diffuse osteopenia. Prosthetic right knee joint is again seen, however comparison is difficult due to mild rotation. Diffuse soft tissue edema is seen. IMPRESSION: Findings are concerning for acute fracture of the distal femur. Further evaluation with CT of the right knee joint might be considered. Findings will be sent to emergency Department. ACT 112: Negative or not required by law. The above report was generated using voice recognition software. It may contain grammatical, syntax or spelling errors. Electronically signed by: Kalee Magdaleno, 01/27/2021 8:00 PM Pelvis X-Ray 01/27/21 18:34 XR pelvis 1-2V routine CLINICAL HISTORY: fall, pain COMPARISON: May 21, 2019 DISCUSSION: No definite acute fracture or dislocation seen. Evaluation is significantly limited due to severe diffuse osteopenia. Diffuse degenerative changes of bilateral hip joints are seen. Orthopedic hardware is seen projecting to the anatomical region of the lower lumbar spine. Few nondilated gas-filled loops of bowel are seen within the lower abdomen and pelvic region. IMPRESSION: No definite acute fracture or dislocation as above. ACT 112: Negative or not required by law. The above report was generated using voice recognition software. It may contain grammatical, syntax or spelling errors. Electronically signed by: Kalee Magdaleno DO 01/27/2021 9:23 PM Chest X-Ray 01/27/21 20:49 XR chest 1V portable CLINICAL HISTORY: renl failure COMPARISON STUDY: October 22, 2020 FINDINGS: No pneumothorax. No pleural effusion. No large infiltrates or consolidative lesions are seen. Round retrocardiac opacity seen with ill-defined lucency which could represent air-fluid level within hiatal hernia. Cardiomediastinal silhouette is within normal limits in size. No significant pulmonary vascular congestion.. Aorta is calcified. Osseous structures: Osteopenia. Mild scoliosis. Evaluation is limited due to rotation. IMPRESSION: 1. No large infiltrates or consolidative lesions. 2. Possible hiatal hernia. 3. Atherosclerosis. ACT 112: Negative or not required by law. The above report was generated using voice recognition software. It may contain grammatical, syntax or spelling errors. Electronically signed by: Kalee Magdaleno DO 01/27/2021 9:56 PM Head Trauma GCS Score: 15 Discharge Plan Visit Data Chief Complaint: Fall Stated Complaint: FELL AND INJURED AND RIGHT SIDE ED Provider: Mayco Quinones Discharge Problem: Closed femur fracture, Fall, Periprosthetic fracture around internal prosthetic knee joint, Left hip pain Patient Disposition: Admitted As Inpatient Condition: Fair Discharge Instructions Interventions: ED Discharge Assessment Last Done: 01/28/21 00:08
[2021-01-27 18:57] LABS: Hematocrit (blood only) 39.4 % (37-47); Hemoglobin 13.4 g/dL (12.0-16.0); Mean Corpuscular Hemoglobin 32.7 pg (25-34); Mean Corpuscular Volume 96.1 fL (80-100); Platelet Count 269 K/uL (130-400); RDW Coefficient of Variation 13.3 % (11.5-14.5); RDW Standard Deviation 46.4 fL (36.4-46.3); White Blood Count 14.58 K/uL (4.8-10.8)
[2021-01-27 19:15] LABS: BUN Creatinine Ratio 15.8 (10-20); Blood Urea Nitrogen 19 mg/dl (7-18); Calcium 9.5 mg/dl (8.5-10.1); Carbon Dioxide 28 mmol/L (21-32); Chloride 101 mmol/L (98-107); Est GFR (African American) 46.3 ml/min; Est GFR (Non-African American) 39.9 ml/min; Glucose 178 mg/dl (70-99); Potassium 3.4 mmol/L (3.5-5.1); Sodium 137 mmol/L (136-145)
--- NOTE | 2021-01-27 19:57 | XRay Report ---
XR femur LT 2V routine CLINICAL HISTORY: fall, pain COMPARISON: May 21, 2019 DISCUSSION: No definite acute fracture is seen. Irregularity a of the left greater trochanter cortex appears vero lar to prior. Overall evaluation is limited due to diffuse severe osteopenia. Orthopedic hardware is again seen projecting to the lower lumbar region. Degenerative changes of the left hip joint are again seen. IMPRESSION: No acute fracture or dislocation. ACT 112: Negative or not required by law. The above report was generated using voice recognition software. It may contain grammatical, syntax o r spelling errors. Electronically signed by: Kalee Magdaleno DO 01/27/2021 7:55 PM
--- NOTE | 2021-01-27 20:01 | XRay Report ---
XR knee RT 3V CLINICAL HISTORY: fall, pain COMPARISON: April 27, 2019 DISCUSSION: Interval irregularity of posterior medial aspect of the distal femur is seen. Also there are question able lucent line are seen within osseous portion of the distal femur which might represent acute frac ture. Evaluation is limited due to diffuse osteopenia. Prosthetic right knee joint is again seen, however comparison is difficult due to mild rotation. Diffuse soft tissue edema is seen. IMPRESSION: Findings are concerning for acute fracture of the distal femur. Further evaluation with CT of the rig ht knee joint might be considered. Findings will be sent to emergency Department. ACT 112: Negative or not required by law. The above report was generated using voice recognition software. It may contain grammatical, syntax o r spelling errors. Electronically signed by: Kalee Magdaleno DO 01/27/2021 8:00 PM
[2021-01-27] MEDS ORDERED: POTASSIUM CHLORIDE CRTAB 20 MEQ TABCR PO STA (20:49)
--- NOTE | 2021-01-27 21:21 | History & Physical Report ---
Date of Service January 27, 2021 Assessment & Plan (1) Fall: Plan: Possible right distal femur fracture History Right TKA COPD HTN Depression CKD III Diastolic dysfunction HPI, PMH, PE completed by Marika Hernandez PA-C Assessment and Plan per Dr Soriano. See addendum History of Present Illness Chief Complaint: Fall Primary Care Provider: Elvira Melgar DO Pt is 89 y/o F with PMH HTN, dyslipidemia, COPD, depression, CKD III (baseline Cr:1.2), GERD, diastolic dysfunction presented to ER with complaint of fal l.Patient states she tripped over a door threshold today causing her to fall and loose her balance. C/O left hip discomfort and right knee pain. States unable to ambulate secondary to right knee pain. H/O Right knee replacement by [facility] in past.Patient states had some discomfort to left maxillary area however that has resolved. Denies any visual disturbance. Reports able to open and close jaw without difficulty. Denies LOC. Denies any other known injury. Denies fever/chills, diaphoresis, N/V/D/C, GASPAR, dizziness, syncope, vision changes, neck pain, CP, SOB, orthopnea, palpitations, cough, sore throat, choking, otalgia, rhinorrhea, abdominal pain, paresthesias, extremity edema, rashes, urinary symptoms. Allergies Allergy/AdvReac Type Severity Reaction Status Date / Time azithromycin Allergy Intermediate ITCHY RASH Verified 01/27/21 19:43 metoclopramide [From Reglan] Allergy Intermediate ITCHY RASH Verified 01/27/21 1 9:43 zolpidem [From Ambien] Allergy Intermediate ITCHY RASH Verified 01/27/21 19:43 Sulfa (Sulfonamide Allergy Mild RASH, GI Verified 01/27/21 19:43 Antibiotics) RXN-BACTRIM Home Medications Medication Instructions Recorded Confirmed Type fluticasone propionate 50 2 spray INTRANASAL DAILY PRN 05/21/19 01/27/21 History mcg/actuation nasal spray,suspension temazepam 15 mg capsule 15 mg PO HS 05/21/19 01/27/21 History furosemide 40 mg tablet 60 mg PO DAILY #135 tab 01/07/21 01/27/21 Rx albuterol sulfate 90 mcg/actuation 2 puff INHALATION Q4H PRN 01/27/21 01/27/21 History aerosol inhaler aspirin 81 mg tablet,delayed 81 mg PO DAILY 01/27/21 01/27/21 History release famotidine 40 mg tablet 40 mg PO DAILY PRN 01/27/21 01/27/21 History fluoxetine 20 mg capsule 20 mg PO TID PRN 01/27/21 01/27/21 History hydrocortisone 2.5 % topical cream 1 applic TOPICAL BID PRN 01/27/21 01/27/21 History hydroxyzine HCl 25 mg tablet 25 mg PO HS PRN 01/27/21 01/27/21 History loratadine 10 mg tablet 10 mg PO DAILY PRN 01/27/21 01/27/21 History mometasone-formoterol HFA 200 2 puff INHALATION BID PRN 01/27/21 01/27/21 History mcg-5 mcg/actuation aerosol inhaler (Dulera) omeprazole 20 mg capsule,delayed 40 mg PO HS 01/27/21 01/27/21 History release potassium chloride 10 mEq 10 meq PO BIDM 01/27/21 01/27/21 History tablet,extended release sennosides 8.6 mg tablet (senna) 17.2 mg PO HS 01/27/21 01/27/21 History tiotropium bromide 2.5 2 puff INHALATION DAILY PRN 01/27/21 01/27/21 History mcg/actuation mist for inhalation (Spiriva Respimat) triamcinolone acetonide 0.1 % 1 applic TOPICAL BID PRN 01/27/21 01/27/21 History topical cream Past Med/Surg History Medical History CKD (chronic kidney disease), stage III COPD (chronic obstructive pulmonary disease) Depression Diastolic dysfunction Diverticulosis Dyslipidemia GERD (gastroesophageal reflux disease) HTN (hypertension) Surgical History H/O exploratory laparotomy H/O sinus surgery H/O: hysterectomy S/P appendectomy S/P tonsillectomy and adenoidectomy Status post total right knee replacement Family History Other Colorectal cancer Diabetes Hypertension Stroke Social History Smoking Status: Never smoker Second Hand Exposure: No; Do You Dip or Chew Tobacco: No; Tobacco Cessation Education Requested by Patient: No Hx Alcohol Use: Yes Alcohol type: hard liquor Hx Substance Use: No Preferred Language: [place] Communication Ability: Effective Rehabilitator Required: No Beliefs That Will Affect Care: None marital status: Current Living Situation: Spouse Other Information That Helps Us Care for You: No Feels Safe at Home: Yes Safety Concerns: Feels Safe At This Time Assistive Devices: Walker Assistive Devices Comment: has oxygen tank and walker and cane at home, does not currently use Review of Systems Review of Systems: All systems reviewed & are unremarkable except as noted in HPI & below Physical Exam Physical Exam: General: no distress, overweight Head: normocephalic, atraumatic Eyes: PERRL, EOM's intact, conjunctiva non-injected, anicteric ENT: normal inspection external ears, nose, mucous membranes moist Face: no orbital tenderness to palpation, no ecchymosis, able to open and close jaw Neck: supple, trachea midline Lungs: clear, no respiratory distress, no wheezing/rhonchi/rales CV: RRR, no murmur, no pretibial edema Abd: normal BS, soft, non-tender Ext: no cyanosis, no calf tenderness; right knee: +edema, no ecchymosis or erythema, +healed surgical scar, +tenderness to palpation anterior knee, limited flexion and extension. left hip: able to flex and extend. distal pulses palpable Neuro: A&O x 3, no focal deficits noted, normal affect Skin: warm, dry Results & Data Results & Data ([facility]) Vital Signs (Past 12 Hours) Vital Signs Temp Pulse Pulse Resp BP BP Pulse Ox 01/27/21 19:27 67 16 144/62 H 98 01/27/21 16:13 36.6 C 73 18 129/61 97 Laboratory Results Short CBC 01/27/21 01/27/21 Range/Units 17:35 17:35 WBC 14.58 H (4.8-10.8) K/uL Hgb 13.4 (12.0-16.0) g/dL Hct 39.4 (37-47) % Plt Count 269 (130-400) K/uL Creatinine 1.21 H (0.6-1.2) mg/dl BMP 01/27/21 17:35 Sodium 137 Potassium 3.4 L Chloride 101 Carbon Dioxide 28 BUN 19 H Creatinine 1.21 H Glucose 178 H Calcium 9.5 Cardiac Enzymes 01/27/21 Range/Units 17:35 Total Creatine Kinase 50 (26-192) U/L Diagnostic Findings Femur X-Ray 01/27/21 18:34 XR femur LT 2V routine CLINICAL HISTORY: fall, pain COMPARISON: May 21, 2019 DISCUSSION: No definite acute fracture is seen. Irregularity a of the left greater trochanter cortex appears similar to prior. Overall evaluation is limited due to diffuse severe osteopenia. Orthopedic hardware is again seen projecting to the lower lumbar region. Degenerative changes of the left hip joint are again seen. IMPRESSION: No acute fracture or dislocation. ACT 112: Negative or not required by law. The above report was generated using voice recognition software. It may contain grammatical, syntax or spelling errors. Electronically signed by: Kalee Magdaleno DO 01/27/2021 7:55 PM Knee X-Ray 01/27/21 18:34 XR knee RT 3V CLINICAL HISTORY: fall, pain COMPARISON: April 27, 2019 DISCUSSION: Interval irregularity of posterior medial aspect of the distal femur is seen. Also there are questionable lucent line are seen within osseous portion of the distal femur which might represent acute fracture. Evaluation is limited due to diffuse osteopenia. Prosthetic right knee joint is again seen, however comparison is difficult due to mild rotation. Diffuse soft tissue edema is seen. IMPRESSION: Findings are concerning for acute fracture of the distal femur. Further evaluation with CT of the right knee joint might be considered. Findings will be sent to emergency Department. ACT 112: Negative or not required by law. The above report was generated using voice recognition software. It may contain grammatical, syntax or spelling errors. Electronically signed by: Kalee Magdaleno DO 01/27/2021 8:00 PM Pelvis X-Ray 01/27/21 18:34 XR pelvis 1-2V routine CLINICAL HISTORY: fall, pain COMPARISON: May 21, 2019 DISCUSSION: No definite acute fracture or dislocation seen. Evaluation is significantly limited due to severe diffuse osteopenia. Diffuse degenerative changes of bilateral hip joints are seen. Orthopedic hardware is seen projecting to the anatomical region of the lower lumbar spine. Few nondilated gas-filled loops of bowel are seen within the lower abdomen and pelvic region. IMPRESSION: No definite acute fracture or dislocation as above. ACT 112: Negative or not required by law. The above report was generated using voice recognition software. It may contain grammatical, syntax or spelling errors. Electronically signed by: Kalee Magdaleno DO 01/27/2021 9:23 PM Supervising Physician Co-Signing Physician Notes IM ATTENDING : Patient seen and examined. History obtained from patient and records. Preceding documentation by Ms. Marika Hernandez PA-C reviewed. FINAL ASSESSMENT AND PLAN as follows : Possible right distal femoral fracture History diastolic dysfunction (EF 55-59% TTE 2017), patient euvolemic COPD, pulmonary status at baseline CRI (creatinine at baseline) Hyperglycemia rule out DM Uterine cancer status post surgery Past tobacco abuse F Orthopedics consult Re: Right distal femoral fracture (ER provider waiting for callback from Dr. Corona.) N.p.o. until patient seen by Orthopedics. No medical contraindication to surgery if recommended by Orthopedics and patient/family agreeable to attendant procedural benefits and risks. Acceptable risk for medical complications. Check hemoglobin A1c DVT prophylaxis. SCDs Re: Possible surgery (Recommend pharmacologic anticoagulation once bleeding risk is deemed to be minimal and negligible pending Orthopedics evaluation.) DNR Patient [id number] requesting updates from providers. Ms. Giselle Strickland, contact #[phone]. Text document was generated using [employer] voice recognition software. It may contain grammatical or spelling errors. Kindly contact undersigned for clarification of any documentation item in question.
--- NOTE | 2021-01-27 21:25 | XRay Report ---
XR pelvis 1-2V routine CLINICAL HISTORY: fall, pain COMPARISON: May 21, 2019 DISCUSSION: No definite acute fracture or dislocation seen. Evaluation is significantly limited due to severe dif fuse osteopenia. Diffuse degenerative changes of bilateral hip joints are seen. Orthopedic hardware is seen projecting to the anatomical region of the lower lumbar spine. Few nondilated gas-filled loops of bowel are seen within the lower abdomen and pelvic region. IMPRESSION: No definite acute fracture or dislocation as above. ACT 112: Negative or not required by law. The above report was generated using voice recognition software. It may contain grammatical, syntax o r spelling errors. Electronically signed by: Kalee Magdaleno DO 01/27/2021 9:23 PM
[2021-01-27] MEDS ORDERED: POTASSIUM CHLORIDE 40 MEQ in SODIUM CHLORIDE 0.9% 1000ML 1,000 ML IV STA (21:35)
--- NOTE | 2021-01-27 21:57 | XRay Report ---
XR chest 1V portable CLINICAL HISTORY: renl failure COMPARISON STUDY: October 22, 2020 FINDINGS: No pneumothorax. No pleural effusion. No large infiltrates or consolidative lesions are seen. Round retrocardiac opacity seen with ill-defi meliton lucency which could represent air-fluid level within hiatal hernia. Cardiomediastinal silhouette is within normal limits in size. No significant pulmonary vascular congestion.. Aorta is calcified. Osseous structures: Osteopenia. Mild scoliosis. Evaluation is limited due to rotation. IMPRESSION: 1. No large infiltrates or consolidative lesions. 2. Possible hiatal hernia. 3. Atherosclerosis. ACT 112: Negative or not required by law. The above report was generated using voice recognition software. It may contain grammatical, syntax o r spelling errors. Electronically signed by: Kalee Magdaleno DO 01/27/2021 9:56 PM
[2021-01-28] MEDS ORDERED: FLUTICASONE PROPIONATE NA SPR 16 GM BTL PRN (00:03)
[2021-01-28] MEDS ORDERED: LORATADINE 10 MG TAB PO PRN (00:03)
[2021-01-28] MEDS ORDERED: XOPENEX/ATROVENT 1.25mg/0.5MG NEB COMBO NEB PRN (00:03)
[2021-01-28] MEDS ORDERED: PROMETHAZINE HCL 12.5 MG in SODIUM CHLORIDE 0.9% 50 ML IV PRN (00:03)
[2021-01-28] MEDS ORDERED: HYDROmorphone INJ 0.5 MG/0.5 ML SYR IV PRN (00:03)
[2021-01-28] MEDS ORDERED: FAMOTIDINE 40 MG TABLET PO PRN (00:03)
[2021-01-28] MEDS ORDERED: FLUoxetine HCL 20 MG CAP PO PRN (00:03)
[2021-01-28] MEDS ORDERED: IPRATROPIUM BROMIDE NEB SOLN 0.02% 2.5 ML VIAL INH PRN (00:03)
[2021-01-28] MEDS ORDERED: LEVALBUTEROL 1.25MG/0.5ML NEB INH PRN (00:03)
[2021-01-28] MEDS ORDERED: FLUTICASONE/VILANTEROL 100/25MCG 14 PUFFS/INHALER INH PRN (00:41)
[2021-01-28] MEDS ORDERED: UMECLIDINIUM BROMIDE 62.5MCG/BLISTER 7 PUFFS/INHALER INH PRN (00:42)
[2021-01-28 01:46] LABS: Appearance Urine Clear (Clear); Bacteria Urine Automated Negative (Negative); Bilirubin Urine Negative (Negative); Blood Urine Trace (Negative); Color Urine Dark Yellow; Epithelial Cell Urine Auto >30 /lpf (0-5); Glucose Urine UA Negative (Negative); Ketones Urine Trace (Negative); Leukocyte Esterase Urine Negative (Negative); Nitrite Urine Negative (Negative); Protein Urine Negative (Negative); Specific Gravity Urine 1.025 (1.000-1.030); Urobilinogen Urine Negative (Negative)
[2021-01-28 02:20] LABS: Cast Urine Automated >30 /lpf (0-5)
[2021-01-28] MEDS ORDERED: TEMAZEPAM 15 MG CAPSULE PO STA (02:20)
[2021-01-28] MEDS: oxyCODONE HCL IR 5 MG TAB (IMMEDIATE RELEASE) PO PRN ×5 (02:39→23:51)
[2021-01-28 07:08] LABS: Estimated Average Glucose 105 mg/dl; Hemoglobin A1C 5.3 % (4.5-5.6)
[2021-01-28 07:12] LABS: BUN Creatinine Ratio 17.8 (10-20); Calcium 8.5 mg/dl (8.5-10.1); Creatinine Clr Calc Pharmacy 25.4 ml/min; Est GFR (African American) 42.8 ml/min; Est GFR (Non-African American) 36.9 ml/min; Potassium 3.7 mmol/L (3.5-5.1)
[2021-01-28 07:21] LABS: Basophils # (auto) 0.03 K/uL (0-0.2); Basophils % (auto) 0.3 %; Eosinophils # (auto) 0.04 K/uL (0-0.5); Eosinophils % (auto) 0.4 %; Hematocrit (blood only) 31.4 % (37-47); Hemoglobin 10.4 g/dL (12.0-16.0); Immature Granulocytes # (auto) 0.01 K/uL (0.00-0.02); Immature Granulocytes % (auto) 0.1 %; Lymphocytes # (auto) 2.78 K/uL (1.2-3.4); Mean Corpuscular Hgb Conc 33.1 g/dL (32-36); Mean Corpuscular Volume 96.6 fL (80-100); Mean Platelet Volume 10.1 fL (7.4-10.4); Monocytes # (auto) 1.08 K/uL (0.11-0.59); Monocytes % (auto) 12.1 %; Neutrophils # (auto) 5.02 K/uL (1.4-6.5); Neutrophils % (auto) 56.1 %; Platelet Count 230 K/uL (130-400); RDW Coefficient of Variation 13.6 % (11.5-14.5); RDW Standard Deviation 47.9 fL (36.4-46.3); Red Blood Count 3.25 M/uL (4.2-5.4); White Blood Count 8.96 K/uL (4.8-10.8)
--- NOTE | 2021-01-28 08:21 | Orthopedic Consultation ---
Date of Consultation January 28, 2021 Assessment & Plan (1) Periprosthetic fracture around internal prosthetic knee joint: Right distal periprosthetic femur fracture X-rays reviewed. Her distal femur is in a slightly flexed position from the fracture. We will go ahead and get a CT scan of the right knee for completeness. I have spoken to Dr. Lopez who has reviewed her present films. We will likely treat the patient with an immobilizer nonoperatively at this time. We will hold off putting the immobilizer on just yet until the CT scan is done and been reviewed. I discussed this with the patient. She is hoping that it can be treated nonoperatively. We have also discussed that she will need to be nonweightbearing for at least 6 to 8 weeks. Continue current pain control. Ice to the right knee. Plan for placement of immobilizer later today after CT scan has been done. CT scan reviewed by Dr. Lopez. Continue to plan for nonoperative treatment at this time. Supervising Physician Co-Signing Physician Notes Patient seen and examined, agree with above assessment and plan. Nonoperative mgnt at this time with KI, NWB RLE, DVT ppx until weight bearing, follow up in office for serial XRs with patient's orthopedic surgeron, Dr. Small, . Thank you for the consultation. History of Present Illness Reason for Consultation: Right distal periprosthetic femur fracture Attending Physician: Roland Mccall MD History of Present Illness Patient is an 89-year-old white female known to our practice who is status post right TKA many years ago by Dr. Small. Patient states that she was taking her daughter to the knife operator yesterday. They were walking into the building, she ended up tripping on a small portion of the door jam and fell to the ground. She had immediate pain in the right knee and was having difficulty ambulating. She is brought to the emergency room here at [facility] and was seen by the staff. X-rays were taken and was found that she had a distal periprosthetic femur fracture. She denies hitting her head. She denies any loss of consciousness. Denies any shortness of breath, chest pain, lightheadedness prior to or after the fall. We have been asked to see her for her distal femur fracture. Allergies Allergy/AdvReac Type Severity Reaction Status Date / Time azithromycin Allergy Intermediate ITCHY RASH Verified 01/27/21 19:43 metoclopramide [From Reglan] Allergy Intermediate ITCHY RASH Verified 01/27/21 19:43 zolpidem [From Ambien] Allergy Intermediate ITCHY RASH Verified 01/27/21 19:43 Sulfa (Sulfonamide Allergy Mild RASH, GI Verified 01/27/21 19:43 Antibiotics) RXN-BACTRIM Home Medications Medication Instructions Recorded Confirmed Type fluticasone propionate 50 2 spray INTRANASAL DAILY PRN 05/21/19 01/27/21 History mcg/actuation nasal spray,suspension temazepam 15 mg capsule 15 mg PO HS 05/21/19 01/27/21 History furosemide 40 mg tablet 60 mg PO DAILY #135 tab 01/07/21 01/27/21 Rx albuterol sulfate 90 mcg/actuation 2 puff INHALATION Q4H PRN 01/27/21 01/27/21 History aerosol inhaler aspirin 81 mg tablet,delayed 81 mg PO DAILY 01/27/21 01/27/21 History release famotidine 40 mg tablet 40 mg PO DAILY PRN 01/27/21 01/27/21 History fluoxetine 20 mg capsule 20 mg PO TID PRN 01/27/21 01/27/21 History hydrocortisone 2.5 % topical cream 1 applic TOPICAL BID PRN 01/27/21 01/27/21 History hydroxyzine HCl 25 mg tablet 25 mg PO HS PRN 01/27/21 01/27/21 History loratadine 10 mg tablet 10 mg PO DAILY PRN 01/27/21 01/27/21 History mometasone-formoterol HFA 200 2 puff INHALATION BID PRN 01/27/21 01/27/21 History mcg-5 mcg/actuation aerosol inhaler (Dulera) omeprazole 20 mg capsule,delayed 40 mg PO HS 01/27/21 01/27/21 History release potassium chloride 10 mEq 10 meq PO BIDM 01/27/21 01/27/21 History tablet,extended release sennosides 8.6 mg tablet (senna) 17.2 mg PO HS 01/27/21 01/27/21 History tiotropium bromide 2.5 2 puff INHALATION DAILY PRN 01/27/21 01/27/21 History mcg/actuation mist for inhalation (Spiriva Respimat) triamcinolone acetonide 0.1 % 1 applic TOPICAL BID PRN 01/27/21 01/27/21 History topical cream oxycodone 5 mg tablet 5 mg PO Q4H PRN #10 tab 02/01/21 Rx Patient History Medical History CKD (chronic kidney disease), stage III COPD (chronic obstructive pulmonary disease) Depression Diastolic dysfunction Diverticulosis Dyslipidemia GERD (gastroesophageal reflux disease) HTN (hypertension) Surgical History H/O exploratory laparotomy H/O sinus surgery H/O: hysterectomy S/P appendectomy S/P tonsillectomy and adenoidectomy Status post total right knee replacement Family History Other Colorectal cancer Diabetes Hypertension Stroke Social History Smoking Status: Never smoker Second Hand Exposure: No; Do You Dip or Chew Tobacco: No; Tobacco Cessation Education Requested by Patient: No Hx Alcohol Use: Yes Alcohol type: hard liquor Hx Substance Use: No Preferred Language: Yoruba Communication Ability: Effective 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 She appears comfortable. She states that she does have pain in her right knee when she tries to move it. No other complaints at this time. On examination of her right lower extremity, her right knee is flexed to approximately 70 degrees. She states that that the most comfortable position for her at this time. The knee is swollen compared to the left. She has some mild tenderness on palpation. Palpation of the lower extremity down below the knee is nontender. She has good range of motion of her right ankle and toes. She has no pain in her right hip at this time. Thigh is soft and nontender. Left lower extremity is benign at this time and range of motion's of the hip knee and ankle are without discomfort. She has no pain of the shoulders elbows or wrist. Range of motion is within normal limits. There is no gross motor or sensory loss seen at this time. Distal pulses are equal bilaterally of the upper and lower extremities. Results & Data ([facility]) Vital Signs (Past 12 Hours) Vital Signs Temp Pulse Resp BP BP Pulse Ox 01/28/21 00:00 36.9 C 16 110/63 96 01/27/21 23:08 76 16 135/65 96 01/27/21 21:47 75 18 128/67 96 Diagnostic Findings Patient: GERALD JOYA PAdbrina Date: 01/27/21MR#: [id number]: [address] LAUcct ID:[id number]: [address] Zip: [place], [place] [address]Fgu: [id number]: EDSex: FRoom/Bed:Att Phy:Diagnosis: FELL AND INJURED AND RIGHT SIDEPri Phy: Elvira Melgar DOService Date: 01/27/21Fam Phy:Interpreting Phy: Kalee Magdaleno DOAdmit Phy: Ordering Phy: Mayco Quinones M.D. cc: ~ XR knee RT 3V CLINICAL HISTORY: fall, pain COMPARISON: April 27, 2019 DISCUSSION: Interval irregularity of posterior medial aspect of the distal femur is seen. A lso there are questionable lucent line are seen within osseous portion of the distal femur which might represent acute fracture. Evaluation is limited due to diffuse osteopenia. Prosthetic right knee joint is again seen, however comparison is difficult due to mild rotation. Diffuse soft tissue edema is seen. IMPRESSION: Findings are concerning for acute fracture of the distal femur. Further eval uation with CT of the right knee joint might be considered. Findings will be sent to emergency Department.
[2021-01-28] MEDS: ASPIRIN 81 MG ECTAB PO SCH (09:26)
--- NOTE | 2021-01-28 09:35 | CT Scan Report ---
RIGHT KNEE CT CT DOSE: 180.08 mGy.cm HISTORY: Right knee pain. periprosthetic femur fx TECHNIQUE: Multiaxial CT images of the right knee were performed and reformatted in the sagittal and coronal plane without the use of contrast. A dose lowering technique was utilized adhering to the pr inciples of YOLA. COMPARISON: Right knee radiograph 01/19/2021. FINDINGS: There is a right total knee arthroplasty. Confirmation of the periprosthetic fractures with in the distal right femur. The fracture is impacted and demonstrates posterior displacement of up to 8 mm. The fractures also slightly comminuted. There is also lateral displacement measuring up to 1 cm . The proximal tibia, proximal fibula, and patellar intact. There is a moderate lipohemarthrosis. IMPRESSION: Confirmation of the slightly comminuted and mildly displaced periprosthetic fracture of the distal ri ght femur. ACT 112: Negative or not required by law. Electronically signed by: Chester Crawford M.D. 01/28/2021 9:34 AM
[2021-01-28] MEDS ORDERED: DICLOFENAC SOD 1% GEL 100 GM TUBE EXT PRN (15:12)
--- NOTE | 2021-01-28 15:14 | Hospitalist Progress Note ---
Date of Service January 28, 2021 Assessment & Plan (1) Fall: Plan: Right distal periprosthetic femur fracture Ground-level fall Leukocytosis on admission - resolved today Acute kidney injury; likely prerenal in nature History Right TKA History diastolic dysfunction (EF 55-59% TTE 2017), patient euvolemic COPD, pulmonary status at baseline CRI (creatinine at baseline) Hyperglycemia rule out DM Uterine cancer status post surgery Past tobacco abuse Appreciate orthopedics input. CT obtained this morning. Plan for nonoperative management. Oxycodone/Dilaudid for pain control. Start patient on maintenance IV fluids. Work with PT/OT. Admission and Anticipated Discharge Date Admission Date: January 27, 2021 Subjective Patient is doing okay. However she does report pain above the knee. Denies chest pain, shortness of breath, abdominal pain, nausea or vomiting. Review of Systems Review of Systems: All systems reviewed & are unremarkable except as noted in HPI & below Physical Exam Physical Exam: General: A&Ox3 HENT: NCAT, MMM, EOMI Eyes: PERRLA Neck: Supple, normal range of motion CVS: normal rate and rhythm Resp: b/l good breath sounds Abdomen: Soft, ND/NT Extremities: No c/c/e Neuro: face symmetric, no focal deficit Skin: no rashes/lesions/errythema MSK: R knee is flexed enriquez catheter in place. Results & Data Results & Data ([facility]) Vital Signs (Past 12 Hours) Vital Signs Temp Resp BP Pulse Ox 01/28/21 08:23 36.9 C 17 105/62 96 Laboratory Results Laboratory Results - last 24 hr 01/27/21 01/27/21 01/27/21 17:35 17:35 17:35 WBC 14.58 H RBC 4.10 L Hgb 13.4 Hct 39.4 MCV 96.1 MCH 32.7 MCHC 34.0 RDW Std Deviation 46.4 H RDW Coeff of Tonio 13.3 Plt Count 269 MPV 10.0 Immature Gran % (Auto) Neut % (Auto) Lymph % (Auto) [place] % (Auto) Eos % (Auto) Baso % (Auto) Neut # (Auto) Lymph # (Auto) [place] # (Auto) Eos # (Auto) Baso # (Auto) Immature Gran # (Auto) Sodium 137 Potassium 3.4 L Chloride 101 Carbon Dioxide 28 Anion Gap 8.0 BUN 19 H Creatinine 1.21 H Est Cr Clr Drug Dosing Not Reportable Est GFR ( Amer) 46.3 Est GFR (Non-Af Amer) 39.9 BUN/Creatinine Ratio 15.8 Glucose 178 H Estimat Average Glucose Hemoglobin A1c Calcium 9.5 Magnesium 2.0 Total Creatine Kinase 50 Urine Color Urine Appearance Urine pH Ur Specific [place] Urine Protein Urine Glucose (UA) Urine Ketones Urine Blood Urine Nitrite Urine Bilirubin Urine Urobilinogen Ur Leukocyte Esterase Urine WBC (Auto) Urine RBC (Auto) U Hyaline Cast (Auto) U Epithel Cells (Auto) Urine Bacteria (Auto) COVID-19 Eval Order SARS-CoV-2 (PCR) 01/27/21 01/27/21 01/27/21 17:35 20:58 20:58 WBC RBC Hgb Hct MCV MCH MCHC RDW Std Deviation RDW Coeff of Tonio Plt Count MPV Immature Gran % (Auto) Neut % (Auto) Lymph % (Auto) [place] % (Auto) Eos % (Auto) Baso % (Auto) Neut # (Auto) Lymph # (Auto) [place] # (Auto) Eos # (Auto) Baso # (Auto) Immature Gran # (Auto) Sodium Potassium Chloride Carbon Dioxide Anion Gap BUN Creatinine Est Cr Clr Drug Dosing Est GFR ( Amer) Est GFR (Non-Af Amer) BUN/Creatinine Ratio Glucose Estimat Average Glucose 105 Hemoglobin A1c 5.3 Calcium Magnesium Total Creatine Kinase Urine Color Urine Appearance Urine pH Ur Specific [place] Urine Protein Urine Glucose (UA) Urine Ketones Urine Blood Urine Nitrite Urine Bilirubin Urine Urobilinogen Ur Leukocyte Esterase Urine WBC (Auto) Urine RBC (Auto) U Hyaline Cast (Auto) U Epithel Cells (Auto) Urine Bacteria (Auto) COVID-19 Eval Order Covid19 at [facility] SARS-CoV-2 (PCR) NEGATIVE 01/28/21 01/28/21 01/28/21 01:32 05:25 05:25 WBC 8.96 RBC 3.25 L Hgb 10.4 L D Hct 31.4 L MCV 96.6 MCH 32.0 MCHC 33.1 RDW Std Deviation 47.9 H RDW Coeff of Tonio 13.6 Plt Count 230 MPV 10.1 Immature Gran % (Auto) 0.1 Neut % (Auto) 56.1 Lymph % (Auto) 31.0 [place] % (Auto) 12.1 Eos % (Auto) 0.4 Baso % (Auto) 0.3 Neut # (Auto) 5.02 Lymph # (Auto) 2.78 [place] # (Auto) 1.08 H Eos # (Auto) 0.04 Baso # (Auto) 0.03 Immature Gran # (Auto) 0.01 Sodium 135 L Potassium 3.7 Chloride 102 Carbon Dioxide 30 Anion Gap 3.0 BUN 23 H Creatinine 1.29 H Est Cr Clr Drug Dosing 25.4 Est GFR ( Amer) 42.8 Est GFR (Non-Af Amer) 36.9 BUN/Creatinine Ratio 17.8 Glucose 120 H Estimat Average Glucose Hemoglobin A1c Calcium 8.5 Magnesium Total Creatine Kinase Urine Color Dark Yellow Urine Appearance Clear Urine pH 5.0 Ur Specific [place] 1.025 Urine Protein Negative Urine Glucose (UA) Negative Urine Ketones Trace H Urine Blood Trace H Urine Nitrite Negative Urine Bilirubin Negative Urine Urobilinogen Negative Ur Leukocyte Esterase Negative Urine WBC (Auto) 1-5 Urine RBC (Auto) 5-10 H U Hyaline Cast (Auto) >30 H U Epithel Cells (Auto) >30 H Urine Bacteria (Auto) Negative COVID-19 Eval Order SARS-CoV-2 (PCR)
[2021-01-28] MEDS: SODIUM CHLORIDE 0.9% 1000ML 1,000 ML IV SCH (15:52)
[2021-01-28] MEDS: TEMAZEPAM 15 MG CAPSULE PO SCH (20:14)
[2021-01-28] MEDS: SENNA 8.6 MG TAB PO SCH (20:14)
[2021-01-28] MEDS: PANTOprazole 40 MG TAB PO SCH (20:14)
[2021-01-29] MEDS: SODIUM CHLORIDE 0.9% 1000ML 1,000 ML IV SCH (04:28)
[2021-01-29] MEDS: ASPIRIN 81 MG ECTAB PO SCH (08:19)
[2021-01-29] MEDS: oxyCODONE HCL IR 5 MG TAB (IMMEDIATE RELEASE) PO PRN ×3 (08:56→17:22)
--- NOTE | 2021-01-29 12:39 | Hospitalist Progress Note ---
Date of Service January 29, 2021 Assessment & Plan (1) Closed femur fracture: Plan: Right distal periprosthetic femur fracture status post fall. Continue nonoperative management with the immobilizer per orthopedics and continue nonweightbearing on the extremity for at least 6 to 8 weeks. Pain control as needed and ice to right knee. Patient appears to be doing well on current pain medications. (2) PAVITHRA (acute kidney injury): Plan: Encouraged to eat and drink. Trend BMP in a.m., consider additional IV hydration if not tolerating p.o. well. (3) Diastolic dysfunction: Plan: Home Lasix 60 mg daily is on hold in setting of PAVITHRA. Patient appears euvolemic. (4) COPD (chronic obstructive pulmonary disease): Plan: Chronic, not in exacerbation. Continue home inhalers as needed. (5) DVT prophylaxis: Plan: Start heparin DNR/DNI Disposition-to [place] care on Monday when bed available [facility] and Anticipated Discharge Date Admission Date: January 27, 2021 Subjective 89 yo F s/p right knee fracture, knee immobilizer in place. Reports pain is well managed with oxycodone. Denies other symptoms at this time. We discussed her plan to go to [facility] after the weekend. Review of Systems Review of Systems: All systems were reviewed and negative except as indicated in HPI above. Physical Exam Physical Exam: CONSTITUTIONAL: WNWD, vitals as above, generally well- appearing EYES: normal conjunctivae, no scleral icterus ENT: external ear and nose normal,MMM RESPIRATORY: clear to auscultation bilaterally, no crackles, rales or wheezes, normal respiratory effort CARDIOVASCULAR: regular rate and rhythm, S1 and 2 heard without murmurs, gallops or rubs, no JVD, no peripheral edema GASTROINTESTINAL: soft, nontender, nondistended MUSCULOSKELETAL: moves extremities with ease, except right lower extremity in knee immobilizer and not moved, she can wiggle both toes and sensation intact to both feet. Good pulses to DP pulse on right foot and feet are warm and well- perfused. SKIN: warm and dry NEUROLOGIC: No facial palsy, no dysarthria. CN 2-12 grossly intact, no sensory deficit, normal cognition, normal speech, no gross focal deficits PSYCHIATRIC: alert cooperative and oriented to person, place and time. Results & Data Results & Data ([facility]) Vital Signs (Past 12 Hours) Vital Signs Temp Pulse Resp BP Pulse Ox 01/29/21 08:23 37.1 C 80 18 123/67 96 Medications Administered Current Inpatient Medications Aspirin (Aspirin 81 Mg Ectab) 81 mg PO DAILY TWILA Stop: 02/27/21 08:59 Last Admin: 01/29/21 08:19 Dose: 81 mg Documented by: Diclofenac Sodium (Diclofenac Sod 1% Gel 100 Gm Tube) 2 gm EXT DAILY PRN PRN Reason: Mild Pain Stop: 02/27/21 15:14 Famotidine (Famotidine 40 Mg Tablet) 40 mg PO DAILY PRN PRN Reason: Heartburn Stop: 02/27/21 00:02 Fluoxetine HCl (Fluoxetine Hcl 20 Mg Cap) 20 mg PO TID PRN PRN Reason: Anxiety Stop: 02/27/21 00:02 Fluticasone Propionate (Fluticasone Propionate Na Spr 16 Gm Btl) 2 sprays NA DAILY PRN PRN Reason: Congestion Stop: 02/27/21 00:02 Fluticasone/Vilanterol (Fluticasone/Vilanterol 100/25mcg 14 Puffs/Inhaler) 1 puffs INH DAILY PRN PRN Reason: Shortness Of Breath Stop: 02/27/21 00:40 Hydromorphone HCl (Hydromorphone Inj 0.5 Mg/0.5 Ml Syr) 0.25 mg IV Q3H PRN PRN Reason: Pain Stop: 02/11/21 00:02 Promethazine HCl 12.5 mg/ (Sodium Chloride) 50.5 mls @ 202 mls/hr IV Q6H PRN PRN Reason: Nausea And Vomiting Stop: 02/27/21 00:02 Ipratropium [place] (Ipratropium [place] Neb Soln 0.02% 2.5 Ml Vial) 0.5 mg INH Q4H PRN PRN Reason: SOB/WHEEZE Stop: 02/27/21 00:02 Levalbuterol HCl (Levalbuterol 1.25mg/0.5ml Neb) 1.25 mg INH Q4H PRN PRN Reason: SOB/WHEEZE Stop: 02/27/21 00:02 Loratadine (Loratadine 10 Mg Tab) 10 mg PO DAILY PRN PRN Reason: Itching Stop: 02/27/21 00:02 Oxycodone HCl (Oxycodone Hcl Ir 5 Mg Tab (Immediate Release)) 5 mg PO Q4H PRN PRN Reason: Pain Stop: 02/11/21 00:02 Last Admin: 01/29/21 08:56 Dose: 5 mg Documented by: Pantoprazole Sodium (Pantoprazole 40 Mg Tab) 40 mg PO [facility] Stop: 02/27/21 20:59 Last Admin: 01/28/21 20:14 Dose: 40 mg Documented by: Sennosides (Senna 8.6 Mg Tab) 17.2 mg PO [facility] Stop: 02/27/21 20:59 Last Admin: 01/28/21 20:14 Dose: 17.2 mg Documented by: Temazepam (Temazepam 15 Mg Capsule) 15 mg PO [facility] Stop: 02/27/21 20:59 Last Admin: 01/28/21 20:14 Dose: 15 mg Documented by: Umeclidinium [place] (Umeclidinium [place] 62.5mcg/Blister 7 Puffs/Inhaler) 1 puffs INH DAILY PRN PRN Reason: Shortness Of Breath Stop: 02/27/21 00:41 (1) Closed femur fracture Encounter type: initial encounter Femur location: distal, unspecified portion Fracture morphology: other fracture Laterality: right Qualified Code(s): S72.491A - Other fracture of lower end of right femur, initial encounter for closed fracture
[2021-01-29] MEDS: PANTOprazole 40 MG TAB PO SCH (20:49)
[2021-01-29] MEDS: TEMAZEPAM 15 MG CAPSULE PO SCH (20:49)
[2021-01-29] MEDS: SENNA 8.6 MG TAB PO SCH (20:49)
[2021-01-30 05:24] LABS: Hematocrit (blood only) 26.6 % (37-47); Hemoglobin 8.7 g/dL (12.0-16.0); Mean Corpuscular Hgb Conc 32.7 g/dL (32-36); Mean Corpuscular Volume 97.8 fL (80-100); Mean Platelet Volume 9.8 fL (7.4-10.4); Platelet Count 183 K/uL (130-400); RDW Coefficient of Variation 13.3 % (11.5-14.5); RDW Standard Deviation 47.5 fL (36.4-46.3); Red Blood Count 2.72 M/uL (4.2-5.4); White Blood Count 8.05 K/uL (4.8-10.8)
[2021-01-30 05:52] LABS: BUN Creatinine Ratio 15.8 (10-20); Calcium 8.4 mg/dl (8.5-10.1); Creatinine Clr Calc Pharmacy 33.8 ml/min; Est GFR (African American) 60.4 ml/min; Est GFR (Non-African American) 52.1 ml/min; Potassium 3.8 mmol/L (3.5-5.1)
[2021-01-30] MEDS: HEPARIN SOD 5,000 UNIT/0.5 ML VIAL SQ SCH ×3 (06:21→21:34)
[2021-01-30] MEDS: ASPIRIN 81 MG ECTAB PO SCH (08:41)
--- NOTE | 2021-01-30 17:25 | Hospitalist Progress Note ---
Date of Service January 30, 2021 Assessment & Plan (1) Closed femur fracture: Plan: Right distal periprosthetic femur fracture status post fall. Continue nonoperative management with the immobilizer per orthopedics and continue nonweightbearing on the extremity for at least 6 to 8 weeks. Pain control as needed and ice to right knee. Patient appears to be doing well on current pain medications. (2) PAVITHRA (acute kidney injury): Plan: Resolved to baseline. Cont to hydate well. (3) Anemia: Plan: Uncertain etiology, doesn't appear to be acutely bleeding, no increase of pain in her knee. She reports some bruising which may be the source along with dilution and phlebotomy in the hospital. Recheck in am. (4) Diastolic dysfunction: Plan: Home Lasix 60 mg daily is on hold in setting of PAVITHRA. Cont to hold for now. Patient appears euvolemic. (5) COPD (chronic obstructive pulmonary disease): Plan: Chronic, not in exacerbation. Continue home inhalers as needed. (6) DVT prophylaxis: Plan: Heparin DNR/DNI [facility]position-to [facility] when bed available DO Matthieu Stewrad Hospitalist Admission and Anticipated Discharge Date Admission Date: January 27, 2021 Supervising Physician Co-Signing Physician Notes IM ATTENDING : Patient seen and examined. History obtained from patient and records. Preceding documentation by Ms. Marika Hernandez PA-C reviewed. FINAL ASSESSMENT AND PLAN as follows : Possible right distal femoral fracture History diastolic dysfunction (EF 55-59% TTE 2017), patient euvolemic COPD, pulmonary status at baseline CRI (creatinine at baseline) Hyperglycemia rule out DM Uterine cancer status post surgery Past tobacco abuse F Orthopedics consult Re: Right distal femoral fracture (ER provider waiting for callback from Dr. Corona.) N.p.o. until patient seen by Orthopedics. No medical contraindication to surgery if recommended by Orthopedics and patient/family agreeable to attendant procedural benefits and risks. Acceptable risk for medical complications. Check hemoglobin A1c DVT prophylaxis. SCDs Re: Possible surgery (Recommend pharmacologic anticoagulation once bleeding risk is deemed to be minimal and negligible pending Orthopedics evaluation.) DNR Patient [id number] requesting updates from providers. Ms. Giselle Strickland, contact #[phone]. Text document was generated using [employer] voice recognition software. It may contain grammatical or spelling errors. Kindly contact undersigned for clarification of any documentation item in question. Subjective 89 yo F s/p right knee fracture, knee immobilizer in place. Reports pain is well managed Noted worsened anemia on CBC this am. Patient denies lightheadedness, CP, SOB or other new symptoms She reports some bruising in her right leg, however, couldn't evaluate clearly with knee immobilizer in place. Eating well Remains NWB Review of Systems Review of Systems: All systems were reviewed and negative except as indicated in HPI above. Physical Exam Physical Exam: CONSTITUTIONAL: WNWD, vitals as above, generally well- appearing EYES: normal conjunctivae, no scleral icterus ENT: external ear and nose normal,MMM RESPIRATORY: clear to auscultation bilaterally, no crackles, rales or wheezes, normal respiratory effort CARDIOVASCULAR: regular rate and rhythm, S1 and 2 heard without murmurs, gallops or rubs, no JVD, no peripheral edema GASTROINTESTINAL: soft, nontender, nondistended MUSCULOSKELETAL: moves extremities with ease, except right lower extremity in knee immobilizer and not moved, she can wiggle both toes and sensation intact to both feet. Good pulses to DP pulse on right foot and feet are warm and well- perfused. SKIN: warm and dry, did not visualize any ecchymosis around the immobilizer on the right leg or elsewhere. NEUROLOGIC: No facial palsy, no dysarthria. CN 2-12 grossly intact, no sensory deficit, normal cognition, normal speech, no gross focal deficits PSYCHIATRIC: alert cooperative and oriented to person, place and time. Results & Data Results & Data ([facility]) Vital Signs (Past 12 Hours) Vital Signs Temp Pulse Resp BP Pulse Ox 01/30/21 16:10 37.0 C 83 16 130/71 98 01/30/21 07:34 37.0 C 86 16 136/74 98 Laboratory Results Short CBC 01/30/21 Range/Units 05:09 WBC 8.05 (4.8-10.8) K/uL Hgb 8.7 L (12.0-16.0) g/dL Hct 26.6 L (37-47) % Plt Count 183 (130-400) K/uL BMP 01/30/21 05:09 Sodium 133 L Potassium 3.8 Chloride 102 Carbon Dioxide 26 BUN 15 Creatinine 0.97 D Glucose 128 H Calcium 8.4 L Medications Administered Current Inpatient Medications Aspirin (Aspirin 81 Mg Ectab) 81 mg PO DAILY TWILA Stop: 02/27/21 08:59 Last Admin: 01/30/21 08:41 Dose: 81 mg Documented by: Diclofenac Sodium (Diclofenac Sod 1% Gel 100 Gm Tube) 2 gm EXT DAILY PRN PRN Reason: Mild Pain Stop: 02/27/21 15:14 Famotidine (Famotidine 40 Mg Tablet) 40 mg PO DAILY PRN PRN Reason: Heartburn Stop: 02/27/21 00:02 Fluoxetine HCl (Fluoxetine Hcl 20 Mg Cap) 20 mg PO TID PRN PRN Reason: Anxiety Stop: 02/27/21 00:02 Fluticasone Propionate (Fluticasone Propionate Na Spr 16 Gm Btl) 2 sprays NA DAILY PRN PRN Reason: Congestion Stop: 02/27/21 00:02 Fluticasone/Vilanterol (Fluticasone/Vilanterol 100/25mcg 14 Puffs/Inhaler) 1 puffs INH DAILY PRN PRN Reason: Shortness Of Breath Stop: 02/27/21 00:40 Heparin Sodium (Porcine) (Heparin Sod 5,000 Unit/0.5 Ml Vial) 5,000 units SQ Q8 TWILA Stop: 03/01/21 05:59 Last Admin: 01/30/21 14:06 Dose: 5,000 units Documented by: Hydromorphone HCl (Hydromorphone Inj 0.5 Mg/0.5 Ml Syr) 0.25 mg IV Q3H PRN PRN Reason: Pain Stop: 02/11/21 00:02 Promethazine HCl 12.5 mg/ (Sodium Chloride) 50.5 mls @ 202 mls/hr IV Q6H PRN PRN Reason: Nausea And Vomiting Stop: 02/27/21 00:02 Ipratropium [place] (Ipratropium [place] Neb Soln 0.02% 2.5 Ml Vial) 0.5 mg INH Q4H PRN PRN Reason: SOB/WHEEZE Stop: 02/27/21 00:02 Levalbuterol HCl (Levalbuterol 1.25mg/0.5ml Neb) 1.25 mg INH Q4H PRN PRN Reason: SOB/WHEEZE Stop: 02/27/21 00:02 Loratadine (Loratadine 10 Mg Tab) 10 mg PO DAILY PRN PRN Reason: Itching Stop: 02/27/21 00:02 Oxycodone HCl (Oxycodone Hcl Ir 5 Mg Tab (Immediate Release)) 5 mg PO Q4H PRN PRN Reason: Pain Stop: 02/11/21 00:02 Last Admin: 01/29/21 17:22 Dose: 5 mg Documented by: Pantoprazole Sodium (Pantoprazole 40 Mg Tab) 40 mg PO [facility] Stop: 02/27/21 20:59 Last Admin: 01/29/21 20:49 Dose: 40 mg Documented by: Sennosides (Senna 8.6 Mg Tab) 17.2 mg PO [facility] Stop: 02/27/21 20:59 Last Admin: 01/29/21 20:49 Dose: 17.2 mg Documented by: Temazepam (Temazepam 15 Mg Capsule) 15 mg PO [facility] Stop: 02/27/21 20:59 Last Admin: 01/29/21 20:49 Dose: 15 mg Documented by: Umeclidinium [place] (Umeclidinium [place] 62.5mcg/Blister 7 Puffs/Inhaler) 1 puffs INH DAILY PRN PRN Reason: Shortness Of Breath Stop: 02/27/21 00:41 (1) Closed femur fracture Encounter type: initial encounter Femur location: distal, unspecified portion Fracture morphology: other fracture Laterality: right Qualified Code(s): S72.491A - Other fracture of lower end of right femur, initial encounter for closed fracture
[2021-01-30] MEDS: TEMAZEPAM 15 MG CAPSULE PO SCH (21:33)
[2021-01-30] MEDS: oxyCODONE HCL IR 5 MG TAB (IMMEDIATE RELEASE) PO PRN (21:33)
[2021-01-30] MEDS: PANTOprazole 40 MG TAB PO SCH (21:34)
[2021-01-30] MEDS: SENNA 8.6 MG TAB PO SCH (21:34)
[2021-01-31] MEDS: oxyCODONE HCL IR 5 MG TAB (IMMEDIATE RELEASE) PO PRN ×3 (03:33→20:59)
[2021-01-31] MEDS: HEPARIN SOD 5,000 UNIT/0.5 ML VIAL SQ SCH (06:06)
[2021-01-31 07:23] LABS: Hematocrit (blood only) 25.6 % (37-47); Hemoglobin 8.4 g/dL (12.0-16.0); Mean Corpuscular Hemoglobin 31.8 pg (25-34); Mean Corpuscular Hgb Conc 32.8 g/dL (32-36); Mean Platelet Volume 9.6 fL (7.4-10.4); Platelet Count 190 K/uL (130-400); RDW Coefficient of Variation 13.3 % (11.5-14.5); RDW Standard Deviation 46.3 fL (36.4-46.3); Red Blood Count 2.64 M/uL (4.2-5.4); White Blood Count 6.82 K/uL (4.8-10.8)
[2021-01-31 08:02] LABS: BUN Creatinine Ratio 18.2 (10-20); Calcium 8.7 mg/dl (8.5-10.1); Creatinine Clr Calc Pharmacy 46.2 ml/min; Est GFR (African American) 88.1 ml/min; Potassium 4.1 mmol/L (3.5-5.1)
[2021-01-31] MEDS: ASPIRIN 81 MG ECTAB PO SCH (10:20)
[2021-01-31] MEDS: SENNA 8.6 MG TAB PO SCH (20:59)
[2021-01-31] MEDS: PANTOprazole 40 MG TAB PO SCH (20:59)
[2021-01-31] MEDS: TEMAZEPAM 15 MG CAPSULE PO SCH (21:00)
--- NOTE | 2021-01-31 21:54 | Hospitalist Progress Note ---
Date of Service January 31, 2021 Assessment & Plan (1) Closed femur fracture: Plan: Right distal periprosthetic femur fracture status post fall. Continue nonoperative management with the immobilizer per orthopedics and continue nonweightbearing on the extremity for at least 6 to 8 weeks. Pain control as needed and ice to right knee. Patient appears to be doing well on current pain medications. (2) PAVITHRA (acute kidney injury): Plan: Resolved to baseline. Cont to hydate well. (3) Anemia: Plan: Uncertain etiology, doesn't appear to be acutely bleeding, no increase of pain in her knee. She reports some bruising which may be the source along with dilution and phlebotomy in the hospital. Recheck in am. (4) Diastolic dysfunction: Plan: Home Lasix 60 mg daily is on hold in setting of PAVITHRA. Cont to hold for now. Patient appears euvolemic. (5) COPD (chronic obstructive pulmonary disease): Plan: Chronic, not in exacerbation. Continue home inhalers as needed. (6) DVT prophylaxis: Plan: Heparin DNR/DNI Disposition-to [facility] on [facility] when bed available DO Matthieu Steward Hospitalist Admission and Anticipated Discharge Date Admission Date: January 27, 2021 Subjective 89 yo F s/p right knee fracture, knee immobilizer in place. Reports pain is well managed but she is still requiring narcotics. Noted worsened anemia on CBC this am. Patient denies lightheadedness, CP, SOB or other new symptoms Eating well Remains NWB Review of Systems Review of Systems: All systems were reviewed and negative except as indicated in HPI above. Physical Exam Physical Exam: CONSTITUTIONAL: WNWD, vitals as above, generally well- appearing EYES: normal conjunctivae, no scleral icterus ENT: external ear and nose normal, MMM RESPIRATORY: clear to auscultation bilaterally, no crackles, rales or wheezes, normal respiratory effort CARDIOVASCULAR: regular rate and rhythm, S1 and 2 heard without murmurs, gallops or rubs, no JVD, no peripheral edema GASTROINTESTINAL: soft, nontender, nondistended MUSCULOSKELETAL: moves extremities with ease, except right lower extremity in knee immobilizer and not moved, she can wiggle both toes and sensation intact to both feet. Good pulses to DP pulse on right foot and feet are warm and well- perfused. SKIN: warm and dry, did not visualize any ecchymosis around the immobilizer on the right leg or elsewhere. NEUROLOGIC: No facial palsy, no dysarthria. CN 2-12 grossly intact, no sensory deficit, normal cognition, normal speech, no gross focal deficits PSYCHIATRIC: alert cooperative and oriented to person, place and time. Results & Data Results & Data ([facility]) Laboratory Results Short CBC 01/31/21 Range/Units 07:13 WBC 6.82 (4.8-10.8) K/uL Hgb 8.4 L (12.0-16.0) g/dL Hct 25.6 L (37-47) % Plt Count 190 (130-400) K/uL BMP 01/31/21 07:13 Sodium 135 L Potassium 4.1 Chloride 102 Carbon Dioxide 28 BUN 13 Creatinine 0.71 Glucose 101 H Calcium 8.7 Medications Administered Current Inpatient Medications Aspirin (Aspirin 81 Mg Ectab) 81 mg PO DAILY TWILA Stop: 02/27/21 08:59 Last Admin: 01/31/21 10:20 Dose: 81 mg Documented by: Diclofenac Sodium (Diclofenac Sod 1% Gel 100 Gm Tube) 2 gm EXT DAILY PRN PRN Reason: Mild Pain Stop: 02/27/21 15:14 Famotidine (Famotidine 40 Mg Tablet) 40 mg PO DAILY PRN PRN Reason: Heartburn Stop: 02/27/21 00:02 Fluoxetine HCl (Fluoxetine Hcl 20 Mg Cap) 20 mg PO TID PRN PRN Reason: Anxiety Stop: 02/27/21 00:02 Fluticasone Propionate (Fluticasone Propionate Na Spr 16 Gm Btl) 2 sprays NA DAILY PRN PRN Reason: Congestion Stop: 02/27/21 00:02 Fluticasone/Vilanterol (Fluticasone/Vilanterol 100/25mcg 14 Puffs/Inhaler) 1 puffs INH DAILY PRN PRN Reason: Shortness Of Breath Stop: 02/27/21 00:40 Heparin Sodium (Porcine) (Heparin Sod 5,000 Unit/0.5 Ml Vial) 5,000 units SQ Q8 TWILA Stop: 03/01/21 05:59 Last Admin: 01/31/21 06:06 Dose: 5,000 units Documented by: Hydromorphone HCl (Hydromorphone Inj 0.5 Mg/0.5 Ml Syr) 0.25 mg IV Q3H PRN PRN Reason: Pain Stop: 02/11/21 00:02 Promethazine HCl 12.5 mg/ (Sodium Chloride) 50.5 mls @ 202 mls/hr IV Q6H PRN PRN Reason: Nausea And Vomiting Stop: 02/27/21 00:02 Ipratropium [place] (Ipratropium [place] Neb Soln 0.02% 2.5 Ml Vial) 0.5 mg INH Q4H PRN PRN Reason: SOB/WHEEZE Stop: 02/27/21 00:02 Levalbuterol HCl (Levalbuterol 1.25mg/0.5ml Neb) 1.25 mg INH Q4H PRN PRN Reason: SOB/WHEEZE Stop: 02/27/21 00:02 Loratadine (Loratadine 10 Mg Tab) 10 mg PO DAILY PRN PRN Reason: Itching Stop: 02/27/21 00:02 Oxycodone HCl (Oxycodone Hcl Ir 5 Mg Tab (Immediate Release)) 5 mg PO Q4H PRN PRN Reason: Pain Stop: 02/11/21 00:02 Last Admin: 01/31/21 20:59 Dose: 5 mg Documented by: Pantoprazole Sodium (Pantoprazole 40 Mg Tab) 40 mg PO [facility] Stop: 02/27/21 20:59 Last Admin: 01/31/21 20:59 Dose: 40 mg Documented by: Sennosides (Senna 8.6 Mg Tab) 17.2 mg PO [facility] Stop: 02/27/21 20:59 Last Admin: 01/31/21 20:59 Dose: 17.2 mg Documented by: Temazepam (Temazepam 15 Mg Capsule) 15 mg PO [facility] Stop: 02/27/21 20:59 Last Admin: 01/31/21 21:00 Dose: 15 mg Documented by: Umeclidinium [place] (Umeclidinium [place] 62.5mcg/Blister 7 Puffs/Inhaler) 1 puffs INH DAILY PRN PRN Reason: Shortness Of Breath Stop: 02/27/21 00:41 (1) Closed femur fracture Encounter type: initial encounter Femur location: distal, unspecified portion Fracture morphology: other fracture Laterality: right Qualified Code(s): S72.491A - Other fracture of lower end of right femur, initial encounter for closed fracture
[2021-02-01] MEDS: oxyCODONE HCL IR 5 MG TAB (IMMEDIATE RELEASE) PO PRN ×3 (05:19→16:20)
[2021-02-01] MEDS: ASPIRIN 81 MG ECTAB PO SCH (09:20)
[2021-02-01 11:40] LABS: Basophils # (auto) 0.01 K/uL (0-0.2); Basophils % (auto) 0.2 %; Eosinophils # (auto) 0.15 K/uL (0-0.5); Eosinophils % (auto) 2.4 %; Hematocrit (blood only) 26.3 % (37-47); Hemoglobin 8.7 g/dL (12.0-16.0); Immature Granulocytes # (auto) 0.01 K/uL (0.00-0.02); Immature Granulocytes % (auto) 0.2 %; Lymphocytes % (auto) 24.4 %; Mean Corpuscular Hemoglobin 31.9 pg (25-34); Mean Corpuscular Hgb Conc 33.1 g/dL (32-36); Mean Corpuscular Volume 96.3 fL (80-100); Mean Platelet Volume 9.7 fL (7.4-10.4); Monocytes # (auto) 0.76 K/uL (0.11-0.59); Monocytes % (auto) 12.3 %; Neutrophils # (auto) 3.73 K/uL (1.4-6.5); Neutrophils % (auto) 60.5 %; Platelet Count 233 K/uL (130-400); RDW Coefficient of Variation 13.1 % (11.5-14.5); RDW Standard Deviation 45.9 fL (36.4-46.3); Red Blood Count 2.73 M/uL (4.2-5.4); White Blood Count 6.16 K/uL (4.8-10.8)
== END 2021-02-01 17:09 | DRG 534 ==
LOC: ED 16:00 → SUATTDRO 22:54 → 3E 22:54